=== PATIENT | female | born 1940 | race Caucasian/White ===

== ENCOUNTER 2018-05-25 16:44 | Inpatient (IN) | payer MEDICARE, MEDICAID ==
[~2018-05-25] VITALS: Ht 162.6 cm; Wt 45.8 kg
[2018-05-25 17:25] LABS: BASO # 0.1 x10^3/uL (0.0-0.2); BASO % 1 % (0-3); EOS # 0.1 x10^3/uL (0.0-0.7); EOS % 2 % (0-3); HEMATOCRIT 46.5 % (36.0-47.0); HEMOGLOBIN 15.9 g/dL (12.0-15.5); LYMPH % 17 % (24-48); MEAN CORPUSCULAR HEMOGLOBIN 32 pg (25-35); MEAN CORPUSCULAR HGB CONC 34 g/dL (31-37); MEAN CORPUSCULAR VOLUME 94 fL (79-100); MONO # 0.4 x10^3/uL (0.0-1.1); MONO % 6 % (0-9); NEUT # 4.4 x10^3uL (1.8-7.7); NEUT % 74 % (31-73); PLATELET COUNT 249 x10^3/uL (140-400); RED BLOOD COUNT 4.95 x10^6/uL (3.50-5.40); RED CELL DISTRIBUTION WIDTH 13.6 % (11.5-14.5); WHITE BLOOD COUNT 5.9 x10^3/uL (4.0-11.0)
[2018-05-25 17:29] LABS: CLARITY,URINE CLEAR; COLOR,URINE AMBER
[2018-05-25 17:30] LABS: AMORPHOUS SEDIMENT,UR PRESENT /HPF; BACTERIA,URINE FEW /HPF (0-FEW); BILIRUBIN,URINE NEG (NEG); GLUCOSE,URINE NEG (NEG); GRANULAR CASTS,URINE OCC /HPF; HYALINE CASTS, URINE OCC /HPF; NITRITE,URINE NEG (NEG); RBC,URINE RARE /HPF (0-2); SQUAMOUS EPITHELIAL CELL,UR OCC /LPF; UROBILINOGEN,URINE 0.2 mg/dL (0.2 mg/dL)
[2018-05-25 17:35] LABS: ALBUMIN 3.7 g/dL (3.4-5.0); ALBUMIN/GLOBULIN RATIO 1.1 (1.0-1.7); CALCIUM 9.9 mg/dL (8.5-10.1); CREATININE 0.7 mg/dL (0.6-1.0); GFR 80.7; MAGNESIUM 2.1 mg/dL (1.8-2.4); POTASSIUM 4.1 mmol/L (3.5-5.1); TOTAL BILIRUBIN 0.6 mg/dL (0.2-1.0); TOTAL PROTEIN 7.1 g/dL (6.4-8.2)
--- NOTE | 2018-05-25 17:45 | PHYS DOC ---
Past History Past Medical History: Anxiety, Arthritis, COPD, Depression, Hypertension Past Surgical History: Cholecystectomy, Other Alcohol Use: None Drug Use: None Adult General Chief Complaint Chief Complaint: PSYCH EVALUATION HPI HPI 78-year-old female presents for behavioral health admission and medical clearance. The patient is reported to have been aggressive and having paranoid delusions. She has been yelling at family members stating that they are stealing from her. She has been lashing out at other people as well. The patient does not complain of any pain or new medical complaints to me. She states that she is on 2 L of oxygen mostly at night due to COPD. She admits that she believes her minus been playing tricks on her. She denies fever or chills. Review of Systems Review of Systems Constitutional: Denies fever or chills [] Eyes: Denies change in visual acuity, redness, or eye pain [] HENT: Denies nasal congestion or sore throat [] Respiratory: Denies cough or change in shortness of breath [] Cardiovascular: No additional information not addressed in HPI [] GI: Denies abdominal pain, nausea, vomiting, bloody stools or diarrhea [] : Denies dysuria or hematuria [] Musculoskeletal: Denies back pain or joint pain [] Integument: Denies rash or skin lesions [] Neurologic: Denies headache, focal weakness or sensory changes [] Endocrine: Denies polyuria or polydipsia [] All other systems were reviewed and found to be within normal limits, except as documented in this note. Allergies Allergies Allergies Coded Allergies Type Severity Reaction Last Updated Verified No Known Drug Allergies 05/25/18 No Physical Exam Physical Exam Constitutional: Well developed, well nourished, no acute distress, non-toxic appearance. [] HENT: Normocephalic, atraumatic, bilateral external ears normal, oropharynx moist, no oral exudates, nose normal. [] Eyes: PERRLA, EOMI, conjunctiva normal, no discharge. [] Neck: Normal range of motion, no tenderness, supple, no stridor. [] Cardiovascular:Heart rate regular rhythm, no murmur [] Lungs & Thorax: Bilateral breath sounds decreased. On 2 L by nasal cannula.[] Abdomen: Bowel sounds normal, soft, no tenderness, no masses, no pulsatile masses. [] Skin: Warm, dry, no erythema, no rash. [] Back: No tenderness, no CVA tenderness. [] Extremities: No tenderness, no cyanosis, no clubbing, ROM intact, no edema. [] Neurologic: Alert and oriented X 3, normal motor function, normal sensory function, no focal deficits noted. [] Psychologic: Affect normal, judgement normal, mood normal. [] Current Patient Data Vital Signs Vital Signs Date Time Temp Pulse Resp B/P (MAP) Pulse Ox O2 Delivery O2 Flow Rate FiO2 05/25/18 16:50 98.7 94 24 98 Nasal Cannula 2.0 Lab Results Laboratory Tests Test 05/25/18 16:56 05/25/18 17:06 Urine Collection Type Unknown Urine Color Leonarda Urine Clarity Clear Urine pH 7.0 Urine Specific [place] 1.015 Urine Protein 30 mg/dl (NEG-TRACE) Urine Glucose (UA) Neg mg/dL (NEG) Urine Ketones (Stick) Trace mg/dL (NEG) Urine Blood Neg (NEG) Urine Nitrite Neg (NEG) Urine Bilirubin Neg (NEG) Urine Urobilinogen Dipstick 0.2 mg/dL (0.2 mg/dL) Urine Leukocyte Esterase Trace (NEG) Urine RBC Rare /HPF (0-2) Urine WBC 1-4 /HPF (0-4) Urine Squamous Epithelial Cells Occ /LPF Urine Amorphous Sediment Present /HPF Urine Bacteria Few /HPF (0-FEW) Urine Hyaline Casts Occ /HPF Urine Granular Casts Occ /HPF Urine Mucus Mod /LPF White Blood Count 5.9 x10^3/uL (4.0-11.0) Red Blood Count 4.95 x10^6/uL (3.50-5.40) Hemoglobin 15.9 g/dL (12.0-15.5) H Hematocrit 46.5 % (36.0-47.0) Mean Corpuscular Volume 94 fL (79-100) Mean Corpuscular Hemoglobin 32 pg (25-35) Mean Corpuscular Hemoglobin Concent 34 g/dL (31-37) Red Cell Distribution Width 13.6 % (11.5-14.5) Platelet Count 249 x10^3/uL (140-400) Neutrophils (%) (Auto) 74 % (31-73) H Lymphocytes (%) (Auto) 17 % (24-48) L Monocytes (%) (Auto) 6 % (0-9) Eosinophils (%) (Auto) 2 % (0-3) Basophils (%) (Auto) 1 % (0-3) Neutrophils # (Auto) 4.4 x10^3uL (1.8-7.7) Lymphocytes # (Auto) 1.0 x10^3/uL (1.0-4.8) Monocytes # (Auto) 0.4 x10^3/uL (0.0-1.1) Eosinophils # (Auto) 0.1 x10^3/uL (0.0-0.7) Basophils # (Auto) 0.1 x10^3/uL (0.0-0.2) Sodium Level 138 mmol/L (136-145) Potassium Level 4.1 mmol/L (3.5-5.1) Chloride Level 100 mmol/L (98-107) Carbon Dioxide Level 38 mmol/L (21-32) H Anion Gap 0 (6-14) L Blood Urea Nitrogen 21 mg/dL (7-20) H Creatinine 0.7 mg/dL (0.6-1.0) Estimated GFR (Cockcroft-Gault) 80.7 BUN/Creatinine Ratio 30 (6-20) H Glucose Level 87 mg/dL (70-99) Calcium Level 9.9 mg/dL (8.5-10.1) Magnesium Level 2.1 mg/dL (1.8-2.4) Total Bilirubin 0.6 mg/dL (0.2-1.0) Aspartate Amino Transferase (AST) 27 U/L (15-37) Alanine Aminotransferase (ALT) 31 U/L (14-59) Alkaline Phosphatase 89 U/L (46-116) Total Protein 7.1 g/dL (6.4-8.2) Albumin 3.7 g/dL (3.4-5.0) Albumin/Globulin Ratio 1.1 (1.0-1.7) EKG EKG Sinus rhythm, rate 93, normal axis, no ST elevations or depressions.[] Radiology/Procedures Radiology/Procedures [] Course & Med Decision Making Course & Med Decision Making Pertinent Labs and Imaging studies reviewed. (See chart for details) The patient's labs are unremarkable. Her urinalysis is negative for infection. Her EKG is unremarkable. The patient is medically stable for [facility] admission. [] Dragon Disclaimer Dragon Disclaimer This electronic medical record was generated, in whole or in part, using a voice recognition dictation system. Departure Departure: Referrals: NON,STAFF (PCP) LINDA FRANKEL DO May 25, 2018 17:45
--- NOTE | 2018-05-25 18:09 | EKG ---
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
[2018-05-25] MEDS ORDERED: MAG HYDROX/AL HYDROX/SIMETH 30 ML ORAL.SUSP PO PRN (19:45)
[2018-05-25] MEDS ORDERED: METHYL SALICYLATE/MENTHOL TOPICAL OINTMENT 29GM TUBE. TP PRN (19:45)
[2018-05-25] MEDS ORDERED: MAGNESIUM HYDROXIDE 2,400 MG/30 ML ORAL.SUSP. PO PRN (19:45)
[2018-05-25] MEDS ORDERED: ACETAMINOPHEN 325 MG TABLET PO PRN (19:45)
[2018-05-25] MEDS ORDERED: UMEC1DIS INH (20:41)
[2018-05-25] MEDS ORDERED: ALBU18HF (20:41)
[2018-05-25] MEDS ORDERED: DILT120C71 PO (20:41)
[2018-05-25] MEDS ORDERED: LATA2.5D3 (20:41)
[2018-05-25] MEDS ORDERED: NON FORMULARY ITEM (Umeclidinium Brm/Vilanterol Tr (Anoro Ellipta 62.5-25 Mcg Inh) 1 PUFF) INH SCH (21:00)
[2018-05-25] MEDS: ALBUTEROL SULFATE 2.5 MG/3 ML NEBU. NEB SCH (21:00)
[2018-05-25] MEDS ORDERED: ALBUTEROL SULFATE 2.5 MG/3 ML NEBU. NEB PRN (21:00)
[2018-05-25] MEDS ORDERED: ALBUTEROL SULFATE 8GM INHALER. INH SCH (21:00)
--- NOTE | 2018-05-25 21:11 | PDOC ---
Exam Note: Alejandro Note: Please also refer to the separate dictated note~for this date of service dictated separately.~Patient seen individually. Discussed the patient with Nursing staff reviewed the chart.~Reviewed interim history and current functioning. Reviewed vital signs,~Labs/ Radiology~and current medications noted below. Continue current treatment with the changes noted in the dictated addendum note Assessment: Vital Signs: Vital Signs Date Time Temp Pulse Resp B/P (MAP) Pulse Ox O2 Delivery O2 Flow Rate FiO2 05/25/18 18:40 93 20 169/90 (116) 100 Nasal Cannula 2.0 05/25/18 16:50 98.7 Labs: Laboratory Tests Test 05/25/18 16:56 05/25/18 17:06 Urine Collection Type Unknown Urine Color Leonarda Urine Clarity Clear Urine pH 7.0 Urine Specific [place] 1.015 Urine Protein 30 mg/dl (NEG-TRACE) Urine Glucose (UA) Neg mg/dL (NEG) Urine Ketones (Stick) Trace mg/dL (NEG) Urine Blood Neg (NEG) Urine Nitrite Neg (NEG) Urine Bilirubin Neg (NEG) Urine Urobilinogen Dipstick 0.2 mg/dL (0.2 mg/dL) Urine Leukocyte Esterase Trace (NEG) Urine RBC Rare /HPF (0-2) Urine WBC 1-4 /HPF (0-4) Urine Squamous Epithelial Cells Occ /LPF Urine Amorphous Sediment Present /HPF Urine Bacteria Few /HPF (0-FEW) Urine Hyaline Casts Occ /HPF Urine Granular Casts Occ /HPF Urine Mucus Mod /LPF White Blood Count 5.9 x10^3/uL (4.0-11.0) Red Blood Count 4.95 x10^6/uL (3.50-5.40) Hemoglobin 15.9 g/dL (12.0-15.5) H Hematocrit 46.5 % (36.0-47.0) Mean Corpuscular Volume 94 fL (79-100) Mean Corpuscular Hemoglobin 32 pg (25-35) Mean Corpuscular Hemoglobin Concent 34 g/dL (31-37) Red Cell Distribution Width 13.6 % (11.5-14.5) Platelet Count 249 x10^3/uL (140-400) Neutrophils (%) (Auto) 74 % (31-73) H Lymphocytes (%) (Auto) 17 % (24-48) L Monocytes (%) (Auto) 6 % (0-9) Eosinophils (%) (Auto) 2 % (0-3) Basophils (%) (Auto) 1 % (0-3) Neutrophils # (Auto) 4.4 x10^3uL (1.8-7.7) Lymphocytes # (Auto) 1.0 x10^3/uL (1.0-4.8) Monocytes # (Auto) 0.4 x10^3/uL (0.0-1.1) Eosinophils # (Auto) 0.1 x10^3/uL (0.0-0.7) Basophils # (Auto) 0.1 x10^3/uL (0.0-0.2) Sodium Level 138 mmol/L (136-145) Potassium Level 4.1 mmol/L (3.5-5.1) Chloride Level 100 mmol/L (98-107) Carbon Dioxide Level 38 mmol/L (21-32) H Anion Gap 0 (6-14) L Blood Urea Nitrogen 21 mg/dL (7-20) H Creatinine 0.7 mg/dL (0.6-1.0) Estimated GFR (Cockcroft-Gault) 80.7 BUN/Creatinine Ratio 30 (6-20) H Glucose Level 87 mg/dL (70-99) Calcium Level 9.9 mg/dL (8.5-10.1) Magnesium Level 2.1 mg/dL (1.8-2.4) Total Bilirubin 0.6 mg/dL (0.2-1.0) Aspartate Amino Transferase (AST) 27 U/L (15-37) Alanine Aminotransferase (ALT) 31 U/L (14-59) Alkaline Phosphatase 89 U/L (46-116) Total Protein 7.1 g/dL (6.4-8.2) Albumin 3.7 g/dL (3.4-5.0) Albumin/Globulin Ratio 1.1 (1.0-1.7) Current Medications: Meds: Current Medications Acetaminophen (Tylenol) 650 mg PRN Q6HRS PRN PO PAIN / TEMP; Start 05/25/18 at 19:45 Multi-Ingredient Ointment (Analgesic [place]) 1 beka PRN QID PRN TP MUSCLE PAIN; Start 05/25/18 at 19:45 Al Hydroxide/Mg Hydroxide (Mylanta Plus Xs) 15 ml PRN AFTMEALHC PRN PO DYSPEPSIA; Start 05/25/18 at 19:45 Magnesium Hydroxide (Milk Of Magnesia) 2,400 mg PRN QHS PRN PO CONSTIPATION; Start 05/25/18 at 19:45 Nicotine (Nicoderm Cq 21mg) 1 patch DAILY TD ; Start 05/26/18 at 09:00 Albuterol Sulfate (Ventolin Hfa Inhaler) 1 puff BID INH ; Start 05/25/18 at 21: 00; Stop 05/25/18 at 21:00; Status DC Diltiazem HCl (Cardizem 24hr Cd) 120 mg DAILY PO ; Start 05/26/18 at 09:00 Non-Formulary Medication (Umeclidinium Brm/Vilanterol Tr (Anoro Ellipta 62.5-25 Mcg Inh)) 1 puff BID INH ; Start 05/25/18 at 21:00; Stop 05/25/18 at 21:00; Status DC Albuterol Sulfate (Ventolin) 2.5 mg RTQID NEB ; Start 05/25/18 at 21:00 Budesonide (Pulmicort) 0.5 mg RTBID NEB ; Start 05/25/18 at 21:00 Albuterol Sulfate (Ventolin) 2.5 mg PRN Q6HRS PRN NEB SHORTNESS OF BREATH; Start 05/25/18 at 21:00 Active Scripts Active Reported Latanoprost 2.5 Ml Drops Cartia Xt (Diltiazem Hcl) 120 Mg Cap.er.24h 1 Cap PO DAILY Ventolin Hfa Inhaler (Albuterol Sulfate) 18 Gm Hfa.aer.ad Anoro Ellipta 62.5-25 Mcg Inh (Umeclidinium Brm/Vilanterol Tr) 1 Each Disk.w.dev 1 Puff INH BID I have reviewed the current psychotropics carefully including drug interactions. Risk benefit ratio favors no change other than as noted in my dictated progress note. LENCHO LYNN MD May 25, 2018 21:11
[2018-05-25] MEDS: BUDESONIDE 0.5 MG/2 ML NEBU NEB SCH (21:40)
[2018-05-25 23:29] VITALS: BP 170/73
[2018-05-26] MEDS ORDERED: CYAN100031 PO (00:27)
[2018-05-26] MEDS ORDERED: MAGN400T3 PO (00:27)
[2018-05-26] MEDS: ALBUTEROL SULFATE 2.5 MG/3 ML NEBU. NEB SCH ×4 (05:41→20:00)
[2018-05-26 06:03] VITALS: BP 154/78
[2018-05-26] MEDS: NICOTINE 21MG PATCH. TD SCH (08:36)
[2018-05-26] MEDS: BUDESONIDE 0.5 MG/2 ML NEBU NEB SCH ×2 (11:32→21:40)
[2018-05-26 12:58] LABS: THYROID STIM HORMONE (TSH) 2.502 uIU/mL (0.358-3.740)
--- NOTE | 2018-05-26 14:13 | RAD ---
EXAM: Chest, 2 views. HISTORY: Weight loss. COMPARISON: None. FINDINGS: Frontal and lateral views the chest are obtained. There is no infiltrate, pleural effusion or pneumothorax. There is hyperinflation due to emphysema. There are calcified granulomas. The heart is normal in size. There are circumscribed nodules overlying the lower lobes likely due to nipple shadows. IMPRESSION: 1. Emphysema and healed granulomatous disease. 2. Small circumscribed nodules overlying the lower lungs likely due to nipple shadows. Repeat examination following placement of nipple markers can be performed for confirmation. Electronically signed by: Niki Holbrook MD (05/26/2018 2:10 PM) [place] [id number]
[2018-05-26 15:45] VITALS: BP 126/59
--- NOTE | 2018-05-26 20:53 | PDOC ---
Exam Note: Alejandro Note: Please also refer to the separate dictated note~for this date of service dictated separately.~Patient seen individually. Discussed the patient with Nursing staff reviewed the chart.~Reviewed interim history and current functioning. Reviewed vital signs,~Labs/ Radiology~and current medications noted below. Continue current treatment with the changes noted in the dictated addendum note Assessment: Vital Signs: Vital Signs Date Time Temp Pulse Resp B/P (MAP) Pulse Ox O2 Delivery O2 Flow Rate FiO2 05/26/18 16:39 99 Nasal Cannula 2.0 05/26/18 15:45 98.0 92 20 126/59 (81) I&O Intake and Output 05/26/18 07:00 Intake Total 120 ml Balance 120 ml Intake Oral 120 ml Current Medications: Meds: Current Medications Acetaminophen (Tylenol) 650 mg PRN Q6HRS PRN PO PAIN / TEMP Last administered on 05/26/18at 13:54; Start 05/25/18 at 19:45 Multi-Ingredient Ointment (Analgesic [place]) 1 beka PRN QID PRN TP MUSCLE PAIN; Start 05/25/18 at 19:45 Al Hydroxide/Mg Hydroxide (Mylanta Plus Xs) 15 ml PRN AFTMEALHC PRN PO DYSPEPSIA; Start 05/25/18 at 19:45 Magnesium Hydroxide (Milk Of Magnesia) 2,400 mg PRN QHS PRN PO CONSTIPATION; Start 05/25/18 at 19:45 Nicotine (Nicoderm Cq 21mg) 1 patch DAILY TD Last administered on 05/26/18at 08: 36; Start 05/26/18 at 09:00 Albuterol Sulfate (Ventolin Hfa Inhaler) 1 puff BID INH ; Start 05/25/18 at 21: 00; Stop 05/25/18 at 21:00; Status DC Diltiazem HCl (Cardizem 24hr Cd) 120 mg DAILY PO Last administered on at 08:36; Start 05/26/18 at 09:00 Non-Formulary Medication (Umeclidinium Brm/Vilanterol Tr (Anoro Ellipta 62.5-25 Mcg Inh)) 1 puff BID INH ; Start 05/25/18 at 21:00; Stop 05/25/18 at 21:00; Status DC Albuterol Sulfate (Ventolin) 2.5 mg RTQID NEB Last administered on 05/26/18at 16 :39; Start 05/25/18 at 21:00 Budesonide (Pulmicort) 0.5 mg RTBID NEB Last administered on 05/26/18at 11:32; Start 05/25/18 at 21:00 Albuterol Sulfate (Ventolin) 2.5 mg PRN Q6HRS PRN NEB SHORTNESS OF BREATH Last administered on 05/26/18at 06:15; Start 05/25/18 at 21:00 Influenza Virus Vaccine (Afluria Trivalent 2315-5450 Syringe) 0.5 ml ONCE ONCE VAX IM Last administered on 05/26/18 15:24; Start 05/26/18 at 09:00; Stop 05/26/18 at 09:01; Status DC Active Scripts Active Reported Magnesium Oxide 400 Mg Tablet 250 Mg PO DAILY B-12 (Cyanocobalamin (Vitamin B-12)) 1,000 Mcg Tablet.er 1,000 Mcg PO DAILY Latanoprost 2.5 Ml Drops Cartia Xt (Diltiazem Hcl) 120 Mg Cap.er.24h 1 Cap PO DAILY Ventolin Hfa Inhaler (Albuterol Sulfate) 18 Gm Hfa.aer.ad Anoro Ellipta 62.5-25 Mcg Inh (Umeclidinium Brm/Vilanterol Tr) 1 Each Disk.w.dev 1 Puff INH BID I have reviewed the current psychotropics carefully including drug interactions. Risk benefit ratio favors no change other than as noted in my dictated progress note. Diagnosis: Problems: (1) Encounter for behavioral health screening (2) Anxiety disorder (3) Major depressive disorder, recurrent episode (4) Dementia, vascular, with delusions (5) Dementia, vascular, with depression (6) Dementia in Alzheimer's disease with delusions (7) Dementia in Alzheimer's disease with depression (8) Impulse control disorder LENCHO LYNN MD May 26, 2018 20:53
[2018-05-26 23:13] LABS: HEMOGLOBIN A1C 5.2 % (4.8-5.6); THYROXINE 9.3 ug/dL (4.5-12.0)
--- NOTE | 2018-05-27 00:31 | CONS ---
DATE OF CONSULTATION: 05/26/2018 REASON FOR CONSULTATION: Consult for medical management. HISTORY OF PRESENT ILLNESS: The patient is a 78-year-old female patient, who apparently lives at home and was evaluated at [facility] on account of altered mental status. She apparently is very agitated and thinks people are tapping her windows paranoid, angry, accusing family of stealing from her, increased confusion, and believes others are getting into her apartment, stealing from her, and verbally abusive. She also believes that without leaving clues in her apartment when they come in. She refused to finish second portion of dementia testing and was [facility] for [facility] psychiatric stabilization. PAST MEDICAL HISTORY: Her past medical history is significant for chronic obstructive pulmonary disease, pulmonary hypertension, rheumatoid arthritis, osteoarthritis, dyslipidemia, hypertension. She also is known to have generalized osteoarthritis, malignant neoplasm or urinary bladder. PAST SURGICAL HISTORY: Unremarkable. ALLERGIES: She is ALLERGIC TO LIPITOR, LISINOPRIL AND TRAMADOL WELL IV CONTRAST. FAMILY HISTORY: Unremarkable. SOCIAL HISTORY: She lives alone. She continues to be fairly independent, continues unfortunately to smoke, but does not drink alcohol or recreational drugs. 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 MEDICATIONS: She is currently on following medications: She is currently on Anoro Ellipta 1 puff twice a day, albuterol sulfate 1 inhaler every 4-6 hours, diltiazem extended release 120 mg once a day, latanoprost 1 drop to both eyes twice a day, magnesium oxide 400 mg once a day, cyanocobalamin 1000 mcg 1 tablet once a day. REVIEW OF SYSTEMS: The patient denied any blurring of vision, cataract, glaucoma. Denied any earache, tinnitus, or sensorineural deafness. Denied any nosebleeds, stuffy nose or nosebleed. Denied any sore throat, sore tongue, toothache, hoarseness of voice or difficulty swallowing. Denied any nausea, vomiting, diarrhea or constipation. Denied any hematemesis, melena or hematochezia. Denied any dysuria, frequency or hematuria. Denied any chest pain, shortness of breath, orthopnea, paroxysmal nocturnal dyspnea. Denied any cough, phlegm or hemoptysis. Denied any chills, rigors, or fever. Denied any dizziness, lightheadedness, or vertigo. She did complain of unintentional weight loss. She is now weighing about 92 pounds. PHYSICAL EXAMINATION: GENERAL: When I examined her, she was sitting comfortably in her chair, in no apparent respiratory distress, somewhat pale, but no jaundice or cyanosis. No lymphadenopathy, no thyromegaly. No jugular venous distension. No lower limb edema. VITAL SIGNS: Her heart rate was 91, blood pressure was 154/78, her temperature was 98.6, respiratory rate was 18, and oxygen saturation was 96% on 2 liters of oxygen. HEENT: Examination of the head, eyes, ears, nose and throat showed normocephalic, atraumatic. NECK: Supple. HEART: Showed normal first and second heart sounds with no gallop, rub or murmur. CHEST: Clear to auscultation. No crepitation or rhonchi. ABDOMEN: Scaphoid, soft, nontender. No guarding or rigidity. No organomegaly. Hernial orifices are intact and bowel sounds normal. NEUROLOGIC: She was awake, alert, responding appropriately. All her Cranial nerves are intact. EXTREMITIES: She moves extremities without difficulty. She ambulates without assistance or assistive devices. LABORATORY DATA: Her lab work showed a white cell count of 5900, hemoglobin 16, hematocrit 46, MCV 94, and platelet count 249,000. Her chemistry showed a serum sodium 138, potassium 4, chloride 100, bicarbonate was 38, BUN 21, creatinine 0.7, estimated GFR was 81 mL per minute. Her glucose was 87, calcium was 9.9, magnesium was 2.1. Total bilirubin, AST, ALT, alkaline phosphatase were normal. Total protein was 7.1, albumin 3.7. Urinalysis showed the urine was willis, clear with a pH of 7, specific gravity of 1.015. There is small amount of protein. The urine was negative for glucose, trace of ketones, negative for blood nitrite, and trace of leukocyte esterase. There were rare RBCs, very few WBCs, and very few bacteria. IMPRESSION: So, in summary, this is a 78-year-old female patient, who was admitted on account of increasing agitation, paranoid, angry, accusing family of stealing from her, and thinks people are tapping her windows and leaving clues in her apartment when they leave. She is verbally abusive and has refused to finish the dementia testing. She has multiple medical problems including chronic obstructive pulmonary disease, rheumatoid arthritis, hyperlipidemia, hypertension, and bladder cancer. She has an intentional weight loss. She apparently was treated for symptomatic urinary tract infection and her urinalysis is essentially unremarkable. PLAN: My plan is to inquire more about this bladder cancer and see whether she has any metastases, although at least chemically her kidney function is normal with a BUN of 21, creatinine 0.7. I will order at least chest x-ray and get more information about this bladder cancer to see if this is something that might be relevant to her presentation. Thank you, Dr. Jimenez, for allowing me to participate in the care of this patient. LESTER FELICIANO MD DR: DIXIE/jun JOB#: [id number] / [id number]
[2018-05-27] MEDS: ALBUTEROL SULFATE 2.5 MG/3 ML NEBU. NEB SCH ×4 (05:26→19:28)
[2018-05-27 05:50] VITALS: BP 145/63
[2018-05-27] MEDS: NICOTINE 21MG PATCH. TD SCH (09:29)
[2018-05-27] MEDS: BUDESONIDE 0.5 MG/2 ML NEBU NEB SCH ×2 (11:04→19:28)
--- NOTE | 2018-05-27 14:26 | HP ---
ADMIT DATE: 05/26/2018 PSYCHIATRIC ADMISSION HISTORY/EVALUATION This late entry, 05/26/2018, covers elements not covered in my initial note, 05/26/2018. I met with the patient individually in the evening. Discussed with nursing staff, reviewed the chart. Previously, I discussed with nursing staff on several occasions including prior to the patient's admission and also with Linda Carmen LCSW, flight coordinator. IDENTIFYING DATA: The patient is a 78-year-old female who was admitted by her daughter, Judit Kim, who is her power of energy attorney, referred by Dr. Posada, her primary care physician in [place], [place], on account of increasing psychotic symptoms and paranoia. The patient lives alone in her home/apartment. She believes people are entering her apartment and leaving clues. She is accusing family of stealing from her. She is increasingly forgetful, confused, having weight loss, poor appetite, worsening confusion. Since she lives on her own, all of these behaviors have been potentially dangerous and unsafe for her living. Outpatient treatment was attempted with psychological testing. The patient refused second half of the testing and is referred for inpatient psychiatric stabilization. CHIEF COMPLAINT: "I am doing alright. Maybe a little forgetful, but not much." HISTORY OF PRESENT ILLNESS: The patient reportedly has had increasing psychotic symptoms, short-term memory deficits, which she minimizes. She has had some sleep and appetite changes. No active suicidal or homicidal ideation. No clear symptoms of bipolar disorder. PAST PSYCHIATRIC HISTORY: As above. MEDICAL HISTORY: Positive for bladder cancer, history of COPD, hypertension, glaucoma, coronary artery disease, hyperlipidemia, osteoarthritis, pulmonary hypertension, rheumatoid arthritis. She is tobacco dependent. CODE STATUS: Full code. ALLERGIES: LIPITOR, LISINOPRIL, TRAMADOL, IV CONTRAST DYE. ACCU-CHEKS: None. DIET: Regular, ambulates ad roberth. CURRENT PSYCHOTROPICS: None. FAMILY HISTORY: Positive for Alzheimer's disease. SOCIAL HISTORY: The patient lives in her apartment. No alcohol or drug abuse, physical, sexual or elder abuse history is noted. Not known to be a perpetrator. The daughter had called Adult Protective Services on 05/11/2018 on account of the psychotic symptoms, dangerous behaviors, and at the behest of the Adult Protective Services finally got and contacted to arrange this hospitalization. 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 ASSETS: Supportive daughter. Despite some short-term memory deficits, reasonably cognitively intact. MENTAL STATUS EXAM: The patient was seen individually. She is oriented to herself and situation. She knew it was May, unaware of the date, knew that president was president Shanelle and when questioned who was the president before him, she stated "that colored man." Speech is coherent, abstraction fair, computation able to do one step on serial 7's, able to spell world forward, no error, backward 2 errors. No active suicidal or homicidal ideation. She minimizes paranoia, but on closed questioning, this is quite evident she is psychotic, minimizes being depressed. Mood is anxious, dysphoric. Intellect average. Insight limited. Judgment intact to standard questioning. LABORATORY DATA: Reviewed. IMPRESSION: Psychotic disorder, unspecified; major neurocognitive disorder, early, probably vascular with delusion; depression and anxiety disorder, unspecified; impulse control disorder, unspecified. Rest unchanged as above. PLAN: Admit to Geropsychiatry Unit at [facility]. I will see the patient daily individually from a psychiatric standpoint. Medical followup per Dr. Jordan/Dr. Barger. Observe the patient's baseline. Consider adding Seroquel as an atypical antipsychotic and using an antidepressant depending on her mood symptoms. She may need treatment on cholinesterase inhibitor, but probably majority of her memory deficits is vascular and these may have little effect. We will make further recommendations depending on baseline assessment. [place] LYNN MD DR: MELVIN/jun JOB#: [id number] / [id number]
[2018-05-27 16:19] VITALS: BP 184/76
[2018-05-27] MEDS: QUEtiapine 25 MG TABLET. PO SCH (20:14)
[2018-05-27] MEDS: traZODone 50 MG TABLET. PO PRN (20:14)
--- NOTE | 2018-05-27 20:19 | PDOC ---
Exam Note: Alejandro Note: Please also refer to the separate dictated note~for this date of service dictated separately.~Patient seen individually. Discussed the patient with Nursing staff reviewed the chart.~Reviewed interim history and current functioning. Reviewed vital signs,~Labs/ Radiology~and current medications noted below. Continue current treatment with the changes noted in the dictated addendum note Assessment: Vital Signs: Vital Signs Date Time Temp Pulse Resp B/P (MAP) Pulse Ox O2 Delivery O2 Flow Rate FiO2 05/27/18 19:31 93 Room Air 05/27/18 16:19 98.1 99 24 184/76 (112) 2.0 I&O Intake and Output 05/27/18 07:00 Intake Total 1080 ml Balance 1080 ml Intake Oral 1080 ml Labs: Laboratory Tests Test 05/27/18 07:04 Erythrocyte Sedimentation Rate 0 (0-25) C-Reactive Protein 7.6 mg/L (0-3.3) H Current Medications: Meds: Current Medications Acetaminophen (Tylenol) 650 mg PRN Q6HRS PRN PO PAIN / TEMP Last administered on 05/26/18at 13:54; Start 05/25/18 at 19:45 Multi-Ingredient Ointment (Analgesic [place]) 1 beka PRN QID PRN TP MUSCLE PAIN; Start 05/25/18 at 19:45 Al Hydroxide/Mg Hydroxide (Mylanta Plus Xs) 15 ml PRN AFTMEALHC PRN PO DYSPEPSIA; Start 05/25/18 at 19:45 Magnesium Hydroxide (Milk Of Magnesia) 2,400 mg PRN QHS PRN PO CONSTIPATION; Start 05/25/18 at 19:45 Nicotine (Nicoderm Cq 21mg) 1 patch DAILY TD Last administered on 05/27/18at 09: 29; Start 05/26/18 at 09:00 Albuterol Sulfate (Ventolin Hfa Inhaler) 1 puff BID INH ; Start 05/25/18 at 21: 00; Stop 05/25/18 at 21:00; Status DC Diltiazem HCl (Cardizem 24hr Cd) 120 mg DAILY PO Last administered on at 09:30; Start 05/26/18 at 09:00 Non-Formulary Medication (Umeclidinium Brm/Vilanterol Tr (Anoro Ellipta 62.5-25 Mcg Inh)) 1 puff BID INH ; Start 05/25/18 at 21:00; Stop 05/25/18 at 21:00; Status DC Albuterol Sulfate (Ventolin) 2.5 mg RTQID NEB Last administered on 05/27/18at 19 :28; Start 05/25/18 at 21:00 Budesonide (Pulmicort) 0.5 mg RTBID NEB Last administered on 05/27/18at 19:28; Start 05/25/18 at 21:00 Albuterol Sulfate (Ventolin) 2.5 mg PRN Q6HRS PRN NEB SHORTNESS OF BREATH Last administered on 05/26/18at 06:15; Start 05/25/18 at 21:00 Influenza Virus Vaccine (Afluria Trivalent [id number] Syringe) 0.5 ml ONCE ONCE VAX IM Last administered on 05/26/18at 15:24; Start 05/26/18 at 09:00; Stop 05/26/18 at 09:01; Status DC Quetiapine Fumarate (SEROquel) 25 mg QHS PO Last administered on 05/27/18at 20: 14; Start 05/27/18 at 21:00 Sertraline HCl (Zoloft) 25 mg DAILY PO ; Start 05/28/18 at 09:00 Trazodone HCl (Desyrel) 50 mg PRN QHS PRN PO prn insomnia Last administered on 05/27/18at 20:14; Start 05/27/18 at 21:00 Active Scripts Active Reported Magnesium Oxide 400 Mg Tablet 250 Mg PO DAILY B-12 (Cyanocobalamin (Vitamin B-12)) 1,000 Mcg Tablet.er 1,000 Mcg PO DAILY Latanoprost 2.5 Ml Drops Cartia Xt (Diltiazem Hcl) 120 Mg Cap.er.24h 1 Cap PO DAILY Ventolin Hfa Inhaler (Albuterol Sulfate) 18 Gm Hfa.aer.ad Anoro Ellipta 62.5-25 Mcg Inh (Umeclidinium Brm/Vilanterol Tr) 1 Each Disk.w.dev 1 Puff INH BID I have reviewed the current psychotropics carefully including drug interactions. Risk benefit ratio favors no change other than as noted in my dictated progress note. Diagnosis: Problems: (1) Encounter for behavioral health screening (2) Anxiety disorder (3) Major depressive disorder, recurrent episode (4) Dementia, vascular, with delusions (5) Dementia, vascular, with depression (6) Dementia in Alzheimer's disease with delusions (7) Dementia in Alzheimer's disease with depression (8) Impulse control disorder LENCHO LYNN MD May 27, 2018 20:19
[2018-05-28] MEDS: ALBUTEROL SULFATE 2.5 MG/3 ML NEBU. NEB SCH ×4 (05:39→19:55)
[2018-05-28 06:17] VITALS: BP 186/80
[2018-05-28] MEDS: NICOTINE 21MG PATCH. TD SCH (08:24)
[2018-05-28] MEDS: SERTRALINE 25 MG TABLET. PO SCH (08:24)
[2018-05-28] MEDS: BUDESONIDE 0.5 MG/2 ML NEBU NEB SCH ×2 (10:02→19:55)
[2018-05-28 15:49] VITALS: BP 134/58
[2018-05-28] MEDS: QUEtiapine 25 MG TABLET. PO SCH (20:17)
[2018-05-28] MEDS: traZODone 50 MG TABLET. PO PRN (20:17)
[2018-05-29] MEDS: ALBUTEROL SULFATE 2.5 MG/3 ML NEBU. NEB SCH ×4 (04:56→19:55)
[2018-05-29 06:32] VITALS: BP 166/83
[2018-05-29] MEDS: NICOTINE 21MG PATCH. TD SCH (08:41)
[2018-05-29] MEDS: SERTRALINE 25 MG TABLET. PO SCH (08:41)
[2018-05-29 15:33] VITALS: BP 169/78
[2018-05-29] MEDS: BUDESONIDE 0.5 MG/2 ML NEBU NEB SCH ×2 (16:18→19:55)
--- NOTE | 2018-05-29 20:25 | PDOC ---
Exam Note: Alejandro Note: Late entry for date of service May. Please also refer to the separate dictated note~for this date of service dictated separately.~Patient seen individually. Discussed the patient with Nursing staff reviewed the chart.~ Reviewed interim history and current functioning. Reviewed vital signs,~Labs/ Radiology~and current medications noted below. Continue current treatment with the changes noted in the dictated addendum note Assessment: Vital Signs: VS - Last 72 Hours, by Label Date Time Temp Pulse Resp B/P (MAP) Pulse Ox O2 Delivery O2 Flow Rate FiO2 05/29/18 16:29 93 Nasal Cannula 2.0 05/29/18 16:20 93 Nasal Cannula 2.0 05/29/18 15:33 98.0 82 22 169/78 (108) 99 05/29/18 08:40 92 166/83 05/29/18 06:32 97.5 92 18 166/83 (110) 94 Nasal Cannula 2.0 05/28/18 16:46 94 Nasal Cannula 2.0 05/28/18 15:49 98.3 86 20 134/58 (83) 90 05/28/18 10:04 3 Nasal Cannula 2.0 05/28/18 08:23 90 186/90 05/28/18 06:17 97.8 90 22 186/80 (115) 98 Nasal Cannula 2.0 05/28/18 05:40 92 Nasal Cannula 2.0 05/27/18 19:31 93 Room Air 05/27/18 16:19 98.1 99 24 184/76 (112) 92 Room Air 2.0 05/27/18 11:05 99 Nasal Cannula 2.0 05/27/18 11:04 99 Nasal Cannula 2.0 05/27/18 09:30 81 145/63 05/27/18 05:50 98.1 81 22 145/63 (90) 99 Nasal Cannula 2.0 05/26/18 20:40 99 Nasal Cannula 2.0 Vital Signs Date Time Temp Pulse Resp B/P (MAP) Pulse Ox O2 Delivery O2 Flow Rate FiO2 05/29/18 16:29 93 Nasal Cannula 2.0 05/29/18 15:33 98.0 82 22 169/78 (108) I&O Intake and Output 05/29/18 06:59 Intake Total 358 ml Balance 358 ml Intake Oral 358 ml Current Medications: Meds: Current Medications Acetaminophen (Tylenol) 650 mg PRN Q6HRS PRN PO PAIN / TEMP Last administered on 05/26/18at 13:54; Start 05/25/18 at 19:45 Multi-Ingredient Ointment (Analgesic [place]) 1 beka PRN QID PRN TP MUSCLE PAIN; Start 05/25/18 at 19:45 Al Hydroxide/Mg Hydroxide (Mylanta Plus Xs) 15 ml PRN AFTMEALHC PRN PO DYSPEPSIA; Start 05/25/18 at 19:45 Magnesium Hydroxide (Milk Of Magnesia) 2,400 mg PRN QHS PRN PO CONSTIPATION; Start 05/25/18 at 19:45 Nicotine (Nicoderm Cq 21mg) 1 patch DAILY TD Last administered on 05/29/18at 08: 41; Start 05/26/18 at 09:00 Albuterol Sulfate (Ventolin Hfa Inhaler) 1 puff BID INH ; Start 05/25/18 at 21: 00; Stop 05/25/18 at 21:00; Status DC Diltiazem HCl (Cardizem 24hr Cd) 120 mg DAILY PO Last administered on at 08:40; Start 05/26/18 at 09:00 Non-Formulary Medication (Umeclidinium Brm/Vilanterol Tr (Anoro Ellipta 62.5-25 Mcg Inh)) 1 puff BID INH ; Start 05/25/18 at 21:00; Stop 05/25/18 at 21:00; Status DC Albuterol Sulfate (Ventolin) 2.5 mg RTQID NEB Last administered on 05/29/18at 16 :18; Start 05/25/18 at 21:00 Budesonide (Pulmicort) 0.5 mg RTBID NEB Last administered on 05/29/18at 16:18; Start 05/25/18 at 21:00 Albuterol Sulfate (Ventolin) 2.5 mg PRN Q6HRS PRN NEB SHORTNESS OF BREATH Last administered on 05/26/18at 06:15; Start 05/25/18 at 21:00 Influenza Virus Vaccine (Afluria Trivalent [id number] Syringe) 0.5 ml ONCE ONCE VAX IM Last administered on 05/26/18at 15:24; Start 05/26/18 at 09:00; Stop 05/26/18 at 09:01; Status DC Quetiapine Fumarate (SEROquel) 25 mg QHS PO Last administered on 05/28/18 20: 17; Start 05/27/18 at 21:00 Sertraline HCl (Zoloft) 25 mg DAILY PO Last administered on 05/29/18at 08:41; Start 05/28/18 at 09:00 Trazodone HCl (Desyrel) 50 mg PRN QHS PRN PO prn insomnia Last administered on 05/28/18at 20:17; Start 05/27/18 at 21:00 Active Scripts Active Reported Magnesium Oxide 400 Mg Tablet 250 Mg PO DAILY B-12 (Cyanocobalamin (Vitamin B-12)) 1,000 Mcg Tablet.er 1,000 Mcg PO DAILY Latanoprost 2.5 Ml Drops Cartia Xt (Diltiazem Hcl) 120 Mg Cap.er.24h 1 Cap PO DAILY Ventolin Hfa Inhaler (Albuterol Sulfate) 18 Gm Hfa.aer.ad Anoro Ellipta 62.5-25 Mcg Inh (Umeclidinium Brm/Vilanterol Tr) 1 Each Disk.w.dev 1 Puff INH BID I have reviewed the current psychotropics carefully including drug interactions. Risk benefit ratio favors no change other than as noted in my dictated progress note. Diagnosis: Problems: (1) Encounter for behavioral health screening (2) Anxiety disorder (3) Major depressive disorder, recurrent episode (4) Dementia, vascular, with delusions (5) Dementia, vascular, with depression (6) Dementia in Alzheimer's disease with delusions (7) Dementia in Alzheimer's disease with depression (8) Impulse control disorder LENCHO LYNN MD May 29, 2018 20:25
[2018-05-29] MEDS: traZODone 50 MG TABLET. PO PRN (20:26)
[2018-05-29] MEDS: QUEtiapine 25 MG TABLET. PO SCH (20:26)
--- NOTE | 2018-05-29 20:26 | PDOC ---
Exam Note: Alejandro Note: Please also refer to the separate dictated note~for this date of service dictated separately.~Patient seen individually. Discussed the patient with Nursing staff reviewed the chart.~Reviewed interim history and current functioning. Reviewed vital signs,~Labs/ Radiology~and current medications noted below. Continue current treatment with the changes noted in the dictated addendum note Assessment: Vital Signs: Vital Signs Date Time Temp Pulse Resp B/P (MAP) Pulse Ox O2 Delivery O2 Flow Rate FiO2 05/29/18 16:29 93 Nasal Cannula 2.0 05/29/18 15:33 98.0 82 22 169/78 (108) I&O Intake and Output 05/29/18 06:59 Intake Total 358 ml Balance 358 ml Intake Oral 358 ml Current Medications: Meds: Current Medications Acetaminophen (Tylenol) 650 mg PRN Q6HRS PRN PO PAIN / TEMP Last administered on 05/26/18at 13:54; Start 05/25/18 at 19:45 Multi-Ingredient Ointment (Analgesic [place]) 1 beka PRN QID PRN TP MUSCLE PAIN; Start 05/25/18 at 19:45 Al Hydroxide/Mg Hydroxide (Mylanta Plus Xs) 15 ml PRN AFTMEALHC PRN PO DYSPEPSIA; Start 05/25/18 at 19:45 Magnesium Hydroxide (Milk Of Magnesia) 2,400 mg PRN QHS PRN PO CONSTIPATION; Start 05/25/18 at 19:45 Nicotine (Nicoderm Cq 21mg) 1 patch DAILY TD Last administered on 05/29/18at 08: 41; Start 05/26/18 at 09:00 Albuterol Sulfate (Ventolin Hfa Inhaler) 1 puff BID INH ; Start 05/25/18 at 21: 00; Stop 05/25/18 at 21:00; Status DC Diltiazem HCl (Cardizem 24hr Cd) 120 mg DAILY PO Last administered on at 08:40; Start 05/26/18 at 09:00 Non-Formulary Medication (Umeclidinium Brm/Vilanterol Tr (Anoro Ellipta 62.5-25 Mcg Inh)) 1 puff BID INH ; Start 05/25/18 at 21:00; Stop 05/25/18 at 21:00; Status DC Albuterol Sulfate (Ventolin) 2.5 mg RTQID NEB Last administered on 05/29/18 16 :18; Start 05/25/18 at 21:00 Budesonide (Pulmicort) 0.5 mg RTBID NEB Last administered on 05/29/18 16:18; Start 05/25/18 at 21:00 Albuterol Sulfate (Ventolin) 2.5 mg PRN Q6HRS PRN NEB SHORTNESS OF BREATH Last administered on 05/26/18 06:15; Start 05/25/18 at 21:00 Influenza Virus Vaccine (Afluria Trivalent [id number] Syringe) 0.5 ml ONCE ONCE VAX IM Last administered on 05/26/18at 15:24; Start 05/26/18 at 09:00; Stop 05/26/18 at 09:01; Status DC Quetiapine Fumarate (SEROquel) 25 mg QHS PO Last administered on 05/28/18 20: 17; Start 05/27/18 at 21:00 Sertraline HCl (Zoloft) 25 mg DAILY PO Last administered on 05/29/18at 08:41; Start 05/28/18 at 09:00 Trazodone HCl (Desyrel) 50 mg PRN QHS PRN PO prn insomnia Last administered on 05/28/18 20:17; Start 05/27/18 at 21:00 Active Scripts Active Reported Magnesium Oxide 400 Mg Tablet 250 Mg PO DAILY B-12 (Cyanocobalamin (Vitamin B-12)) 1,000 Mcg Tablet.er 1,000 Mcg PO DAILY Latanoprost 2.5 Ml Drops Cartia Xt (Diltiazem Hcl) 120 Mg Cap.er.24h 1 Cap PO DAILY Ventolin Hfa Inhaler (Albuterol Sulfate) 18 Gm Hfa.aer.ad Anoro Ellipta 62.5-25 Mcg Inh (Umeclidinium Brm/Vilanterol Tr) 1 Each Disk.w.dev 1 Puff INH BID I have reviewed the current psychotropics carefully including drug interactions. Risk benefit ratio favors no change other than as noted in my dictated progress note. Diagnosis: Problems: (1) Encounter for behavioral health screening (2) Anxiety disorder (3) Major depressive disorder, recurrent episode (4) Dementia, vascular, with delusions (5) Dementia, vascular, with depression (6) Dementia in Alzheimer's disease with delusions (7) Dementia in Alzheimer's disease with depression (8) Impulse control disorder LENCHO LYNN MD May 29, 2018 20:26
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
--- NOTE | 2018-05-30 00:41 | PN ---
DATE: 05/28/2018 This is a late entry for 05/28/2018 and covers elements not covered in my initial note. SUBJECTIVE: I met with the patient in the evening. The patient slept 6 hours previous evening, remains very anxious, especially about oxygen, resistive with medications, obsessive about her closet. She does have short-term memory deficits, but I sat with her at some length in her room. REVIEW OF SYSTEMS: Shortness of breath, impaired ambulation at times. No CV, GI, , eye system symptoms on review. MENTAL STATUS EXAM: Oriented to herself and situation. Speech coherent, rapid at times. Abstraction fair, computation impaired, language function intact, attention span short. Mood and affect labile, anxious. LABORATORY DATA: Reviewed. IMPRESSION: Unchanged from initial note. PLAN: No change from initial note, trazodone, Seroquel, Zoloft were added and we will adjust gradually. MAN Ridge LYNN MD DR: MELVIN/jun JOB#: [id number] / [id number]
--- NOTE | 2018-05-30 00:59 | PN ---
DATE: 05/29/2018 This note covers elements not covered in my initial note. SUBJECTIVE: I met with the patient in her roommate in the evening. Per nursing report, she appeared helpless, hopeless, withdrawn to her room. REVIEW OF SYSTEMS: She remains anxious, obsessive about her oxygen, trying to turn it up. No CV, , eye, ENT system symptoms on review. MENTAL STATUS EXAM: Oriented to herself, situations. The patient did not appear to recognize me, was asking me who I was. I have seen her every day since she has been hospitalized and she does have cognitive deficits to explain that. Speech coherent, rapid at times. Abstraction fair, computation impaired, language function intact. Mood and affect remain somewhat anxious, labile. LABORATORY DATA: Reviewed. IMPRESSION: Major depressive disorder with psychotic features; anxiety disorder, unspecified. PLAN: No change from initial note. MAN Ridge LYNN MD DR: MELVIN/jun JOB#: [id number] / [id number]
[2018-05-30] MEDS: ALBUTEROL SULFATE 2.5 MG/3 ML NEBU. NEB SCH ×4 (05:04→20:21)
[2018-05-30 06:01] VITALS: BP 161/77
[2018-05-30] MEDS: NICOTINE 21MG PATCH. TD SCH (08:32)
[2018-05-30] MEDS: SERTRALINE 25 MG TABLET. PO SCH (08:32)
[2018-05-30 09:21] LABS: BASO % 1 % (0-3); EOS # 0.1 x10^3/uL (0.0-0.7); EOS % 2 % (0-3); HEMATOCRIT 44.9 % (36.0-47.0); LYMPH # 0.6 x10^3/uL (1.0-4.8); LYMPH % 10 % (24-48); MEAN CORPUSCULAR HEMOGLOBIN 32 pg (25-35); MEAN CORPUSCULAR HGB CONC 33 g/dL (31-37); MEAN CORPUSCULAR VOLUME 95 fL (79-100); MONO # 0.3 x10^3/uL (0.0-1.1); MONO % 5 % (0-9); NEUT % 83 % (31-73); PLATELET COUNT 262 x10^3/uL (140-400); RED BLOOD COUNT 4.74 x10^6/uL (3.50-5.40); RED CELL DISTRIBUTION WIDTH 13.7 % (11.5-14.5)
[2018-05-30 09:35] LABS: ALBUMIN 3.6 g/dL (3.4-5.0); ALBUMIN/GLOBULIN RATIO 1.1 (1.0-1.7); CALCIUM 9.9 mg/dL (8.5-10.1); CREATININE 0.7 mg/dL (0.6-1.0); GFR 80.7; POTASSIUM 3.6 mmol/L (3.5-5.1); TOTAL BILIRUBIN 0.8 mg/dL (0.2-1.0); TOTAL PROTEIN 6.9 g/dL (6.4-8.2)
[2018-05-30] MEDS: BUDESONIDE 0.5 MG/2 ML NEBU NEB SCH ×2 (10:46→20:21)
[2018-05-30 15:53] VITALS: BP 146/66
[2018-05-30] MEDS: MIRTAZAPINE 7.5 MG TABLET. PO SCH ×2 (20:42→20:56)
[2018-05-30] MEDS: QUEtiapine 25 MG TABLET. PO SCH ×2 (20:42→20:56)
--- NOTE | 2018-05-30 20:54 | PDOC ---
Exam Note: Alejandro Note: Please also refer to the separate dictated note~for this date of service dictated separately.~Patient seen individually. Discussed the patient with Nursing staff reviewed the chart.~Reviewed interim history and current functioning. Reviewed vital signs,~Labs/ Radiology~and current medications noted below. Continue current treatment with the changes noted in the dictated addendum note Assessment: Vital Signs: Vital Signs Date Time Temp Pulse Resp B/P (MAP) Pulse Ox O2 Delivery O2 Flow Rate FiO2 05/30/18 16:27 97 Nasal Cannula 2.0 05/30/18 15:53 98.6 77 20 146/66 (92) I&O Intake and Output 05/30/18 06:59 Intake Total 300 ml Balance 300 ml Intake Oral 300 ml Labs: Laboratory Tests Test 05/30/18 09:14 White Blood Count 6.0 x10^3/uL (4.0-11.0) Red Blood Count 4.74 x10^6/uL (3.50-5.40) Hemoglobin 15.0 g/dL (12.0-15.5) Hematocrit 44.9 % (36.0-47.0) Mean Corpuscular Volume 95 fL (79-100) Mean Corpuscular Hemoglobin 32 pg (25-35) Mean Corpuscular Hemoglobin Concent 33 g/dL (31-37) Red Cell Distribution Width 13.7 % (11.5-14.5) Platelet Count 262 x10^3/uL (140-400) Neutrophils (%) (Auto) 83 % (31-73) H Lymphocytes (%) (Auto) 10 % (24-48) L Monocytes (%) (Auto) 5 % (0-9) Eosinophils (%) (Auto) 2 % (0-3) Basophils (%) (Auto) 1 % (0-3) Neutrophils # (Auto) 5.0 x10^3uL (1.8-7.7) Lymphocytes # (Auto) 0.6 x10^3/uL (1.0-4.8) L Monocytes # (Auto) 0.3 x10^3/uL (0.0-1.1) Eosinophils # (Auto) 0.1 x10^3/uL (0.0-0.7) Basophils # (Auto) 0.0 x10^3/uL (0.0-0.2) Sodium Level 142 mmol/L (136-145) Potassium Level 3.6 mmol/L (3.5-5.1) Chloride Level 102 mmol/L (98-107) Carbon Dioxide Level 40 mmol/L (21-32) H Anion Gap 0 (6-14) L Blood Urea Nitrogen 22 mg/dL (7-20) H Creatinine 0.7 mg/dL (0.6-1.0) Estimated GFR (Cockcroft-Gault) 80.7 BUN/Creatinine Ratio 31 (6-20) H Glucose Level 94 mg/dL (70-99) Calcium Level 9.9 mg/dL (8.5-10.1) Total Bilirubin 0.8 mg/dL (0.2-1.0) Aspartate Amino Transferase (AST) 40 U/L (15-37) H Alanine Aminotransferase (ALT) 56 U/L (14-59) Alkaline Phosphatase 79 U/L (46-116) Total Protein 6.9 g/dL (6.4-8.2) Albumin 3.6 g/dL (3.4-5.0) Albumin/Globulin Ratio 1.1 (1.0-1.7) Current Medications: Meds: Current Medications Acetaminophen (Tylenol) 650 mg PRN Q6HRS PRN PO PAIN / TEMP Last administered on 05/26/18at 13:54; Start 05/25/18 at 19:45 Multi-Ingredient Ointment (Analgesic [place]) 1 beka PRN QID PRN TP MUSCLE PAIN; Start 05/25/18 at 19:45 Al Hydroxide/Mg Hydroxide (Mylanta Plus Xs) 15 ml PRN AFTMEALHC PRN PO DYSPEPSIA; Start 05/25/18 at 19:45 Magnesium Hydroxide (Milk Of Magnesia) 2,400 mg PRN QHS PRN PO CONSTIPATION; Start 05/25/18 at 19:45 Nicotine (Nicoderm Cq 21mg) 1 patch DAILY TD Last administered on 05/30/18at 08: 32; Start 05/26/18 at 09:00 Albuterol Sulfate (Ventolin Hfa Inhaler) 1 puff BID INH ; Start 05/25/18 at 21: 00; Stop 05/25/18 at 21:00; Status DC Diltiazem HCl (Cardizem 24hr Cd) 120 mg DAILY PO Last administered on 08:32; Start 05/26/18 at 09:00 Non-Formulary Medication (Umeclidinium Brm/Vilanterol Tr (Anoro Ellipta 62.5-25 Mcg Inh)) 1 puff BID INH ; Start 05/25/18 at 21:00; Stop 05/25/18 at 21:00; Status DC Albuterol Sulfate (Ventolin) 2.5 mg RTQID NEB Last administered on 05/30/18 16 :27; Start 05/25/18 at 21:00 Budesonide (Pulmicort) 0.5 mg RTBID NEB Last administered on 05/30/18 10:46; Start 05/25/18 at 21:00 Albuterol Sulfate (Ventolin) 2.5 mg PRN Q6HRS PRN NEB SHORTNESS OF BREATH Last administered on 05/26/18 06:15; Start 05/25/18 at 21:00 Influenza Virus Vaccine (Afluria Trivalent [id number] Syringe) 0.5 ml ONCE ONCE VAX IM Last administered on 05/26/18 15:24; Start 05/26/18 at 09:00; Stop 05/26/18 at 09:01; Status DC Quetiapine Fumarate (SEROquel) 25 mg QHS PO Last administered on 05/30/18 20: 42; Start 05/27/18 at 21:00 Sertraline HCl (Zoloft) 25 mg DAILY PO Last administered on 05/30/18 08:32; Start 05/28/18 at 09:00; Stop 05/30/18 at 16:11; Status DC Trazodone HCl (Desyrel) 50 mg PRN QHS PRN PO prn insomnia Last administered on 05/29/18 20:26; Start 05/27/18 at 21:00 Sertraline HCl (Zoloft) 50 mg DAILY PO ; Start 05/31/18 at 09:00 Mirtazapine (Remeron) 7.5 mg QHS PO Last administered on 05/30/18 20:42; Start 05/30/18 at 21:00 Active Scripts Active Reported Magnesium Oxide 400 Mg Tablet 250 Mg PO DAILY B-12 (Cyanocobalamin (Vitamin B-12)) 1,000 Mcg Tablet.er 1,000 Mcg PO DAILY Latanoprost 2.5 Ml Drops Cartia Xt (Diltiazem Hcl) 120 Mg Cap.er.24h 1 Cap PO DAILY Ventolin Hfa Inhaler (Albuterol Sulfate) 18 Gm Hfa.aer.ad Anoro Ellipta 62.5-25 Mcg Inh (Umeclidinium Brm/Vilanterol Tr) 1 Each Disk.w.dev 1 Puff INH BID I have reviewed the current psychotropics carefully including drug interactions. Risk benefit ratio favors no change other than as noted in my dictated progress note. Diagnosis: Problems: (1) Encounter for behavioral health screening (2) Anxiety disorder (3) Major depressive disorder, recurrent episode (4) Dementia, vascular, with delusions (5) Dementia, vascular, with depression (6) Dementia in Alzheimer's disease with delusions (7) Dementia in Alzheimer's disease with depression (8) Impulse control disorder LENCHO LYNN MD May 30, 2018 20:54
[2018-05-31] MEDS: ALBUTEROL SULFATE 2.5 MG/3 ML NEBU. NEB SCH ×4 (05:12→20:26)
[2018-05-31 06:12] VITALS: BP 179/84
[2018-05-31] MEDS: NICOTINE 21MG PATCH. TD SCH (08:14)
[2018-05-31] MEDS: SERTRALINE 50 MG TABLET. PO SCH (08:20)
[2018-05-31] MEDS: BUDESONIDE 0.5 MG/2 ML NEBU NEB SCH ×2 (10:53→20:26)
[2018-05-31 16:43] VITALS: BP 152/71
--- NOTE | 2018-05-31 21:07 | PDOC ---
Exam Note: Alejandro Note: Please also refer to the separate dictated note~for this date of service dictated separately.~Patient seen individually. Discussed the patient with Nursing staff reviewed the chart.~Reviewed interim history and current functioning. Reviewed vital signs,~Labs/ Radiology~and current medications noted below. Continue current treatment with the changes noted in the dictated addendum note Assessment: Vital Signs: Vital Signs Date Time Temp Pulse Resp B/P (MAP) Pulse Ox O2 Delivery O2 Flow Rate FiO2 05/31/18 20:20 98 Nasal Cannula 2.0 05/31/18 16:43 97.0 85 20 152/71 (98) I&O Intake and Output 05/31/18 07:00 Intake Total 680 ml Balance 680 ml Intake Oral 680 ml # Voids 1 Current Medications: Meds: Current Medications Acetaminophen (Tylenol) 650 mg PRN Q6HRS PRN PO PAIN / TEMP Last administered on 05/26/18at 13:54; Start 05/25/18 at 19:45 Multi-Ingredient Ointment (Analgesic [place]) 1 beka PRN QID PRN TP MUSCLE PAIN; Start 05/25/18 at 19:45 Al Hydroxide/Mg Hydroxide (Mylanta Plus Xs) 15 ml PRN AFTMEALHC PRN PO DYSPEPSIA; Start 05/25/18 at 19:45 Magnesium Hydroxide (Milk Of Magnesia) 2,400 mg PRN QHS PRN PO CONSTIPATION; Start 05/25/18 at 19:45 Nicotine (Nicoderm Cq 21mg) 1 patch DAILY TD Last administered on 05/31/18at 08: 14; Start 05/26/18 at 09:00 Albuterol Sulfate (Ventolin Hfa Inhaler) 1 puff BID INH ; Start 05/25/18 at 21: 00; Stop 05/25/18 at 21:00; Status DC Diltiazem HCl (Cardizem 24hr Cd) 120 mg DAILY PO Last administered on at 08:13; Start 05/26/18 at 09:00 Non-Formulary Medication (Umeclidinium Brm/Vilanterol Tr (Anoro Ellipta 62.5-25 Mcg Inh)) 1 puff BID INH ; Start 05/25/18 at 21:00; Stop 05/25/18 at 21:00; Status DC Albuterol Sulfate (Ventolin) 2.5 mg RTQID NEB Last administered on 05/31/18 20 :26; Start 05/25/18 at 21:00 Budesonide (Pulmicort) 0.5 mg RTBID NEB Last administered on 05/31/18 20:26; Start 05/25/18 at 21:00 Albuterol Sulfate (Ventolin) 2.5 mg PRN Q6HRS PRN NEB SHORTNESS OF BREATH Last administered on 05/26/18at 06:15; Start 05/25/18 at 21:00 Influenza Virus Vaccine (Afluria Trivalent [id number] Syringe) 0.5 ml ONCE ONCE VAX IM Last administered on 05/26/18 15:24; Start 05/26/18 at 09:00; Stop 05/26/18 at 09:01; Status DC Quetiapine Fumarate (SEROquel) 25 mg QHS PO Last administered on 05/29/18 20: 26; Start 05/27/18 at 21:00 Sertraline HCl (Zoloft) 25 mg DAILY PO Last administered on 05/30/18at 08:32; Start 05/28/18 at 09:00; Stop 05/30/18 at 16:11; Status DC Trazodone HCl (Desyrel) 50 mg PRN QHS PRN PO prn insomnia Last administered on 05/29/18 20:26; Start 05/27/18 at 21:00 Sertraline HCl (Zoloft) 50 mg DAILY PO Last administered on 05/31/18at 08:20; Start 05/31/18 at 09:00 Mirtazapine (Remeron) 7.5 mg QHS PO ; Start 05/30/18 at 21:00 Active Scripts Active Reported Magnesium Oxide 400 Mg Tablet 250 Mg PO DAILY B-12 (Cyanocobalamin (Vitamin B-12)) 1,000 Mcg Tablet.er 1,000 Mcg PO DAILY Latanoprost 2.5 Ml Drops Cartia Xt (Diltiazem Hcl) 120 Mg Cap.er.24h 1 Cap PO DAILY Ventolin Hfa Inhaler (Albuterol Sulfate) 18 Gm Hfa.aer.ad Anoro Ellipta 62.5-25 Mcg Inh (Umeclidinium Brm/Vilanterol Tr) 1 Each Disk.w.dev 1 Puff INH BID I have reviewed the current psychotropics carefully including drug interactions. Risk benefit ratio favors no change other than as noted in my dictated progress note. Diagnosis: Problems: (1) Encounter for behavioral health screening (2) Anxiety disorder (3) Major depressive disorder, recurrent episode (4) Dementia, vascular, with delusions (5) Dementia, vascular, with depression (6) Dementia in Alzheimer's disease with delusions (7) Dementia in Alzheimer's disease with depression (8) Impulse control disorder LENCHO LYNN MD May 31, 2018 21:07
[2018-05-31] MEDS: QUEtiapine 25 MG TABLET. PO SCH (21:15)
[2018-05-31] MEDS: MIRTAZAPINE 7.5 MG TABLET. PO SCH (21:15)
--- NOTE | 2018-05-31 23:22 | PN ---
DATE: 05/30/2018 This is a late entry for 05/30/2018 covers elements not covered in my initial note. SUBJECTIVE: I met with the patient at some length in her room. The patient slept 2 hours previous evening. She has been withdrawn, isolative. She frequently turns up her oxygen, remains anxious. REVIEW OF SYSTEMS: Shortness of breath on O2 supplements 2 liters. No CV, , GI, eye, ENT system symptoms on review. MENTAL STATUS EXAM: Oriented to herself and situation. Speech moderate latency, coherent. Abstraction fair. Computation able to do one step in serial 7's. Insight limited, judgment marginal. No suicidal or homicidal ideation. LABORATORY DATA: Reviewed. IMPRESSION: Major depressive disorder with psychotic features; psychotic disorder, unspecified; anxiety disorder, unspecified; major neurocognitive disorder, Alzheimer, vascular with delusion, depression. PLAN: Increase Zoloft from 25 mg a day to 50 mg a day. Continue Seroquel 25 at bedtime, trazodone p.r.n. MAN Ridge LYNN MD DR: MELVIN/jun JOB#: [id number] / [id number]
[2018-06-01] MEDS: ALBUTEROL SULFATE 2.5 MG/3 ML NEBU. NEB SCH ×4 (05:16→20:31)
[2018-06-01 06:08] VITALS: BP 172/74
[2018-06-01] MEDS: NICOTINE 21MG PATCH. TD SCH (09:32)
[2018-06-01] MEDS: SERTRALINE 50 MG TABLET. PO SCH (09:32)
[2018-06-01] MEDS: BUDESONIDE 0.5 MG/2 ML NEBU NEB SCH ×2 (09:53→20:31)
[2018-06-01 16:15] VITALS: BP 136/65
[2018-06-01] MEDS: QUEtiapine 25 MG TABLET. PO SCH ×2 (20:24→21:00)
[2018-06-01] MEDS: MIRTAZAPINE 7.5 MG TABLET. PO SCH ×2 (20:24→21:00)
--- NOTE | 2018-06-01 20:58 | PDOC ---
Exam Note: Alejandro Note: Please also refer to the separate dictated note~for this date of service dictated separately.~Patient seen individually. Discussed the patient with Nursing staff reviewed the chart.~Reviewed interim history and current functioning. Reviewed vital signs,~Labs/ Radiology~and current medications noted below. Continue current treatment with the changes noted in the dictated addendum note Assessment: Vital Signs: Vital Signs Date Time Temp Pulse Resp B/P (MAP) Pulse Ox O2 Delivery O2 Flow Rate FiO2 06/01/18 20:20 97 Nasal Cannula 2.0 06/01/18 16:15 97.7 78 17 136/65 (88) I&O Intake and Output 06/01/18 07:00 Intake Total 720 ml Balance 720 ml Intake Oral 720 ml # Voids 1 Current Medications: Meds: Current Medications Acetaminophen (Tylenol) 650 mg PRN Q6HRS PRN PO PAIN / TEMP Last administered on 05/26/18at 13:54; Start 05/25/18 at 19:45 Multi-Ingredient Ointment (Analgesic [place]) 1 beka PRN QID PRN TP MUSCLE PAIN; Start 05/25/18 at 19:45 Al Hydroxide/Mg Hydroxide (Mylanta Plus Xs) 15 ml PRN AFTMEALHC PRN PO DYSPEPSIA; Start 05/25/18 at 19:45 Magnesium Hydroxide (Milk Of Magnesia) 2,400 mg PRN QHS PRN PO CONSTIPATION; Start 05/25/18 at 19:45 Nicotine (Nicoderm Cq 21mg) 1 patch DAILY TD Last administered on 06/01/18at 09 :32; Start 05/26/18 at 09:00 Albuterol Sulfate (Ventolin Hfa Inhaler) 1 puff BID INH ; Start 05/25/18 at 21: 00; Stop 05/25/18 at 21:00; Status DC Diltiazem HCl (Cardizem 24hr Cd) 120 mg DAILY PO Last administered on at 09:32; Start 05/26/18 at 09:00 Non-Formulary Medication (Umeclidinium Brm/Vilanterol Tr (Anoro Ellipta 62.5-25 Mcg Inh)) 1 puff BID INH ; Start 05/25/18 at 21:00; Stop 05/25/18 at 21:00; Status DC Albuterol Sulfate (Ventolin) 2.5 mg RTQID NEB Last administered on 06/01/18 20:31; Start 05/25/18 at 21:00 Budesonide (Pulmicort) 0.5 mg RTBID NEB Last administered on 06/01/18 20:31; Start 05/25/18 at 21:00 Albuterol Sulfate (Ventolin) 2.5 mg PRN Q6HRS PRN NEB SHORTNESS OF BREATH Last administered on 05/26/18 06:15; Start 05/25/18 at 21:00 Influenza Virus Vaccine (Afluria Trivalent [id number] Syringe) 0.5 ml ONCE ONCE VAX IM Last administered on 05/26/18 15:24; Start 05/26/18 at 09:00; Stop 05/26/18 at 09:01; Status DC Quetiapine Fumarate (SEROquel) 25 mg QHS PO Last administered on 06/01/18 20: 24; Start 05/27/18 at 21:00 Sertraline HCl (Zoloft) 25 mg DAILY PO Last administered on 05/30/18 08:32; Start 05/28/18 at 09:00; Stop 05/30/18 at 16:11; Status DC Trazodone HCl (Desyrel) 50 mg PRN QHS PRN PO prn insomnia Last administered on 05/29/18 20:26; Start 05/27/18 at 21:00 Sertraline HCl (Zoloft) 50 mg DAILY PO Last administered on 06/01/18 09:32; Start 05/31/18 at 09:00 Mirtazapine (Remeron) 7.5 mg QHS PO Last administered on 06/01/18 20:24; Start 05/30/18 at 21:00 Active Scripts Active Reported Magnesium Oxide 400 Mg Tablet 250 Mg PO DAILY B-12 (Cyanocobalamin (Vitamin B-12)) 1,000 Mcg Tablet.er 1,000 Mcg PO DAILY Latanoprost 2.5 Ml Drops Cartia Xt (Diltiazem Hcl) 120 Mg Cap.er.24h 1 Cap PO DAILY Ventolin Hfa Inhaler (Albuterol Sulfate) 18 Gm Hfa.aer.ad Anoro Ellipta 62.5-25 Mcg Inh (Umeclidinium Brm/Vilanterol Tr) 1 Each Disk.w.dev 1 Puff INH BID I have reviewed the current psychotropics carefully including drug interactions. Risk benefit ratio favors no change other than as noted in my dictated progress note. Diagnosis: Problems: (1) Encounter for behavioral health screening (2) Anxiety disorder (3) Major depressive disorder, recurrent episode (4) Dementia, vascular, with delusions (5) Dementia, vascular, with depression (6) Dementia in Alzheimer's disease with delusions (7) Dementia in Alzheimer's disease with depression (8) Impulse control disorder LENCHO LYNN MD Jun 01, 2018 20:58
--- NOTE | 2018-06-01 21:22 | PN ---
DATE: 05/31/2018 PSYCHIATRIC PROGRESS NOTE This late entry 05/31/2018 covers elements not covered in my initial note. SUBJECTIVE: I met with the patient in the evening. The patient slept 4-1/2 hours previous evening, refused medications, frequently anxious, turning up her oxygen, withdrawn at times. REVIEW OF SYSTEMS: Shortness of breath, impaired ambulation. No CV, , GI, eye system symptoms on review. MENTAL STATUS EXAM: Oriented to herself and situation. Speech coherent, rapid at times, fixated on wanting to be discharged. Abstraction fair, computation impaired, language function intact. Mood and affect remains labile, anxious. LABORATORY DATA: Reviewed. IMPRESSION: Major depressive disorder with psychotic features; anxiety disorder, unspecified; cognitive disorder, unspecified. PLAN: No change from initial note. We have added Remeron 7.5 mg at bedtime, Zoloft was increased to 50 mg a day. MAN Ridge LYNN MD DR: MELVIN/jun JOB#: [id number] / [id number]
[2018-06-02] MEDS: ALBUTEROL SULFATE 2.5 MG/3 ML NEBU. NEB SCH ×4 (05:20→20:48)
[2018-06-02 06:13] VITALS: BP 165/92
[2018-06-02] MEDS: SERTRALINE 50 MG TABLET. PO SCH (08:12)
[2018-06-02] MEDS: NICOTINE 21MG PATCH. TD SCH (08:14)
[2018-06-02] MEDS: BUDESONIDE 0.5 MG/2 ML NEBU NEB SCH ×2 (10:56→20:48)
[2018-06-02 16:38] VITALS: BP 177/76
[2018-06-02 16:50] VITALS: BP 150/77
--- NOTE | 2018-06-02 20:47 | PDOC ---
Exam Note: Alejandro Note: Please also refer to the separate dictated note~for this date of service dictated separately.~Patient seen individually. Discussed the patient with Nursing staff reviewed the chart.~Reviewed interim history and current functioning. Reviewed vital signs,~Labs/ Radiology~and current medications noted below. Continue current treatment with the changes noted in the dictated addendum note Assessment: Vital Signs: Vital Signs Date Time Temp Pulse Resp B/P (MAP) Pulse Ox O2 Delivery O2 Flow Rate FiO2 06/02/18 16:50 86 150/77 (101) 06/02/18 16:38 98.2 20 97 Room Air 06/02/18 10:56 2.0 I&O Intake and Output 06/02/18 07:00 Intake Total 360 ml Balance 360 ml Intake Oral 360 ml # Voids 1 Current Medications: Meds: Current Medications Acetaminophen (Tylenol) 650 mg PRN Q6HRS PRN PO PAIN / TEMP Last administered on 05/26/18at 13:54; Start 05/25/18 at 19:45 Multi-Ingredient Ointment (Analgesic [place]) 1 beka PRN QID PRN TP MUSCLE PAIN; Start 05/25/18 at 19:45 Al Hydroxide/Mg Hydroxide (Mylanta Plus Xs) 15 ml PRN AFTMEALHC PRN PO DYSPEPSIA; Start 05/25/18 at 19:45 Magnesium Hydroxide (Milk Of Magnesia) 2,400 mg PRN QHS PRN PO CONSTIPATION; Start 05/25/18 at 19:45 Nicotine (Nicoderm Cq 21mg) 1 patch DAILY TD Last administered on 06/02/18at 08 :14; Start 05/26/18 at 09:00 Albuterol Sulfate (Ventolin Hfa Inhaler) 1 puff BID INH ; Start 05/25/18 at 21: 00; Stop 05/25/18 at 21:00; Status DC Diltiazem HCl (Cardizem 24hr Cd) 120 mg DAILY PO Last administered on at 08:12; Start 05/26/18 at 09:00 Non-Formulary Medication (Umeclidinium Brm/Vilanterol Tr (Anoro Ellipta 62.5-25 Mcg Inh)) 1 puff BID INH ; Start 05/25/18 at 21:00; Stop 05/25/18 at 21:00; Status DC Albuterol Sulfate (Ventolin) 2.5 mg RTQID NEB Last administered on 06/02/18at 16:23; Start 05/25/18 at 21:00 Budesonide (Pulmicort) 0.5 mg RTBID NEB Last administered on 06/02/18at 10:56; Start 05/25/18 at 21:00 Albuterol Sulfate (Ventolin) 2.5 mg PRN Q6HRS PRN NEB SHORTNESS OF BREATH Last administered on 05/26/18at 06:15; Start 05/25/18 at 21:00 Influenza Virus Vaccine (Afluria Trivalent [id number] Syringe) 0.5 ml ONCE ONCE VAX IM Last administered on 05/26/18at 15:24; Start 05/26/18 at 09:00; Stop 05/26/18 at 09:01; Status DC Quetiapine Fumarate (SEROquel) 25 mg QHS PO Last administered on 05/31/18at 21: 15; Start 05/27/18 at 21:00 Sertraline HCl (Zoloft) 25 mg DAILY PO Last administered on 05/30/18at 08:32; Start 05/28/18 at 09:00; Stop 05/30/18 at 16:11; Status DC Trazodone HCl (Desyrel) 50 mg PRN QHS PRN PO prn insomnia Last administered on 05/29/18at 20:26; Start 05/27/18 at 21:00 Sertraline HCl (Zoloft) 50 mg DAILY PO Last administered on 06/02/18at 08:12; Start 05/31/18 at 09:00 Mirtazapine (Remeron) 7.5 mg QHS PO Last administered on 05/31/18at 21:15; Start 05/30/18 at 21:00 Active Scripts Active Reported Magnesium Oxide 400 Mg Tablet 250 Mg PO DAILY B-12 (Cyanocobalamin (Vitamin B-12)) 1,000 Mcg Tablet.er 1,000 Mcg PO DAILY Latanoprost 2.5 Ml Drops Cartia Xt (Diltiazem Hcl) 120 Mg Cap.er.24h 1 Cap PO DAILY Ventolin Hfa Inhaler (Albuterol Sulfate) 18 Gm Hfa.aer.ad Anoro Ellipta 62.5-25 Mcg Inh (Umeclidinium Brm/Vilanterol Tr) 1 Each Disk.w.dev 1 Puff INH BID I have reviewed the current psychotropics carefully including drug interactions. Risk benefit ratio favors no change other than as noted in my dictated progress note. Diagnosis: Problems: (1) Encounter for behavioral health screening (2) Anxiety disorder (3) Major depressive disorder, recurrent episode (4) Dementia, vascular, with delusions (5) Dementia, vascular, with depression (6) Dementia in Alzheimer's disease with delusions (7) Dementia in Alzheimer's disease with depression (8) Impulse control disorder LENCHO LYNN MD Jun 02, 2018 20:47
[2018-06-02] MEDS: MIRTAZAPINE 7.5 MG TABLET. PO SCH (20:48)
[2018-06-02] MEDS: QUEtiapine 25 MG TABLET. PO SCH (20:48)
[2018-06-03] MEDS: ALBUTEROL SULFATE 2.5 MG/3 ML NEBU. NEB SCH ×4 (05:11→19:11)
[2018-06-03 06:11] VITALS: BP 119/87
[2018-06-03] MEDS: SERTRALINE 50 MG TABLET. PO SCH (07:53)
[2018-06-03] MEDS: NICOTINE 21MG PATCH. TD SCH (07:53)
[2018-06-03] MEDS: BUDESONIDE 0.5 MG/2 ML NEBU NEB SCH ×2 (10:29→19:11)
--- NOTE | 2018-06-03 13:04 | PN ---
DATE: 06/01/2018 PSYCHIATRIC PROGRESS NOTE This is a late entry 06/01/2018 covers elements not covered in my initial note. SUBJECTIVE: I met with the patient in the evening. The patient slept 6-1/4 hours previous night. She has been compliant with her medications. At night, she was angry with staff, slept through breakfast, refused her bedtime medications, took them later, spends much time in her room. REVIEW OF SYSTEMS: Ambulation impaired with walker. No CV, , pulmonary, eye, ENT system symptoms on review. MENTAL STATUS EXAM: Oriented to herself and situation. Speech has some latency, coherent. Abstraction fair, computation impaired, language function intact, attention span short. Mood and affect somewhat withdrawn. Short term memory is impaired. No suicidal or homicidal ideation. IMPRESSION: Major depressive disorder, recurrent, mild cognitive impairment; anxiety disorder, unspecified. PLAN: Continue psychotropics mentioned in my initial note. MAN Ridge LYNN MD DR: MELVIN/jun JOB#: [id number] / [id number]
[2018-06-03 15:49] VITALS: BP 128/62
[2018-06-03] MEDS: MIRTAZAPINE 7.5 MG TABLET. PO SCH (20:35)
[2018-06-03] MEDS: QUEtiapine 25 MG TABLET. PO SCH (20:35)
--- NOTE | 2018-06-03 20:49 | PDOC ---
Exam Note: Alejandro Note: Please also refer to the separate dictated note~for this date of service dictated separately.~Patient seen individually. Discussed the patient with Nursing staff reviewed the chart.~Reviewed interim history and current functioning. Reviewed vital signs,~Labs/ Radiology~and current medications noted below. Continue current treatment with the changes noted in the dictated addendum note Assessment: Vital Signs: Vital Signs Date Time Temp Pulse Resp B/P (MAP) Pulse Ox O2 Delivery O2 Flow Rate FiO2 06/03/18 19:10 100 Nasal Cannula 2.0 06/03/18 15:49 98.1 95 19 128/62 (84) I&O Intake and Output 06/03/18 07:00 Intake Total 1320 ml Balance 1320 ml Intake Oral 1320 ml Current Medications: Meds: Current Medications Acetaminophen (Tylenol) 650 mg PRN Q6HRS PRN PO PAIN / TEMP Last administered on 05/26/18at 13:54; Start 05/25/18 at 19:45 Multi-Ingredient Ointment (Analgesic [place]) 1 beka PRN QID PRN TP MUSCLE PAIN; Start 05/25/18 at 19:45 Al Hydroxide/Mg Hydroxide (Mylanta Plus Xs) 15 ml PRN AFTMEALHC PRN PO DYSPEPSIA; Start 05/25/18 at 19:45 Magnesium Hydroxide (Milk Of Magnesia) 2,400 mg PRN QHS PRN PO CONSTIPATION; Start 05/25/18 at 19:45 Nicotine (Nicoderm Cq 21mg) 1 patch DAILY TD Last administered on 06/03/18at 07 :53; Start 05/26/18 at 09:00 Albuterol Sulfate (Ventolin Hfa Inhaler) 1 puff BID INH ; Start 05/25/18 at 21: 00; Stop 05/25/18 at 21:00; Status DC Diltiazem HCl (Cardizem 24hr Cd) 120 mg DAILY PO Last administered on at 07:53; Start 05/26/18 at 09:00 Non-Formulary Medication (Umeclidinium Brm/Vilanterol Tr (Anoro Ellipta 62.5-25 Mcg Inh)) 1 puff BID INH ; Start 05/25/18 at 21:00; Stop 05/25/18 at 21:00; Status DC Albuterol Sulfate (Ventolin) 2.5 mg RTQID NEB Last administered on 06/03/18at 19:11; Start 05/25/18 at 21:00 Budesonide (Pulmicort) 0.5 mg RTBID NEB Last administered on 06/03/18at 19:11; Start 05/25/18 at 21:00 Albuterol Sulfate (Ventolin) 2.5 mg PRN Q6HRS PRN NEB SHORTNESS OF BREATH Last administered on 05/26/18at 06:15; Start 05/25/18 at 21:00 Influenza Virus Vaccine (Afluria Trivalent [id number] Syringe) 0.5 ml ONCE ONCE VAX IM Last administered on 05/26/18at 15:24; Start 05/26/18 at 09:00; Stop 05/26/18 at 09:01; Status DC Quetiapine Fumarate (SEROquel) 25 mg QHS PO Last administered on 06/03/18at 20: 35; Start 05/27/18 at 21:00 Sertraline HCl (Zoloft) 25 mg DAILY PO Last administered on 05/30/18at 08:32; Start 05/28/18 at 09:00; Stop 05/30/18 at 16:11; Status DC Trazodone HCl (Desyrel) 50 mg PRN QHS PRN PO prn insomnia Last administered on 05/29/18 20:26; Start 05/27/18 at 21:00 Sertraline HCl (Zoloft) 50 mg DAILY PO Last administered on 06/03/18at 07:53; Start 05/31/18 at 09:00; Stop 06/03/18 at 16:36; Status DC Mirtazapine (Remeron) 7.5 mg QHS PO Last administered on 06/03/18at 20:35; Start 05/30/18 at 21:00 Sertraline HCl (Zoloft) 75 mg DAILY PO ; Start 06/04/18 at 09:00 Active Scripts Active Reported Magnesium Oxide 400 Mg Tablet 250 Mg PO DAILY B-12 (Cyanocobalamin (Vitamin B-12)) 1,000 Mcg Tablet.er 1,000 Mcg PO DAILY Latanoprost 2.5 Ml Drops Cartia Xt (Diltiazem Hcl) 120 Mg Cap.er.24h 1 Cap PO DAILY Ventolin Hfa Inhaler (Albuterol Sulfate) 18 Gm Hfa.aer.ad Anoro Ellipta 62.5-25 Mcg Inh (Umeclidinium Brm/Vilanterol Tr) 1 Each Disk.w.dev 1 Puff INH BID I have reviewed the current psychotropics carefully including drug interactions. Risk benefit ratio favors no change other than as noted in my dictated progress note. Diagnosis: Problems: (1) Encounter for behavioral health screening (2) Anxiety disorder (3) Major depressive disorder, recurrent episode (4) Dementia, vascular, with delusions (5) Dementia, vascular, with depression (6) Dementia in Alzheimer's disease with delusions (7) Dementia in Alzheimer's disease with depression (8) Impulse control disorder LENCHO LYNN MD Jun 03, 2018 20:49
--- NOTE | 2018-06-03 22:34 | PN ---
DATE: 06/02/2018 This is a late entry for 06/02/2018 covers elements not covered in my initial note. SUBJECTIVE: I met with the patient in the evening and staffed at a treatment team meeting with the entire team in the morning. The patient's daughter, Judit, attended the treatment team meeting. Reviewed the patient's history. The patient remains somewhat resistive to medications, isolates in her room, slept 5-1/2 hours previous evening. Appetite is poor. She has been refusing showers, somewhat obsessed, anxious about the oxygen, keeps turning it on higher than the 2 liters that she needs. Daughter was questioning whether the patient has the capacity to make decisions for herself and we will have psychological testing with Dr. Vaca for clarification. REVIEW OF SYSTEMS: Shortness of breath, impaired ambulation with walker. No CV, GI, , ENT system symptoms on review. MENTAL STATUS EXAM: Oriented to herself and situation. Speech has some latency, coherent. Abstraction fair, computation impaired, language function intact, attention span short. Mood and affect still somewhat dysphoric, anxious, but improved. LABORATORY DATA: Reviewed. IMPRESSION: Major depressive disorder, recurrent, in partial remission; cognitive disorder, unspecified. PLAN: No change from initial note. Continue psychotropics per initial note. MAN Ridge LYNN MD DR: MELVIN/jun JOB#: [id number] / [id number]
[2018-06-04] MEDS: ALBUTEROL SULFATE 2.5 MG/3 ML NEBU. NEB SCH ×4 (05:00→19:40)
[2018-06-04 05:48] VITALS: BP 174/61
[2018-06-04] MEDS: NICOTINE 21MG PATCH. TD SCH (08:25)
[2018-06-04] MEDS: SERTRALINE 50 MG TABLET. PO SCH (08:25)
[2018-06-04 11:08] LABS: BASO # 0.1 x10^3/uL (0.0-0.2); BASO % 1 % (0-3); EOS # 0.2 x10^3/uL (0.0-0.7); EOS % 4 % (0-3); HEMATOCRIT 47.3 % (36.0-47.0); LYMPH # 1.1 x10^3/uL (1.0-4.8); LYMPH % 17 % (24-48); MEAN CORPUSCULAR HEMOGLOBIN 32 pg (25-35); MEAN CORPUSCULAR HGB CONC 34 g/dL (31-37); MEAN CORPUSCULAR VOLUME 95 fL (79-100); MONO # 0.4 x10^3/uL (0.0-1.1); MONO % 6 % (0-9); NEUT # 4.7 x10^3uL (1.8-7.7); NEUT % 73 % (31-73); PLATELET COUNT 331 x10^3/uL (140-400); RED CELL DISTRIBUTION WIDTH 13.8 % (11.5-14.5); WHITE BLOOD COUNT 6.5 x10^3/uL (4.0-11.0)
[2018-06-04 11:29] LABS: ALBUMIN 3.6 g/dL (3.4-5.0); CALCIUM 9.4 mg/dL (8.5-10.1); CREATININE 0.7 mg/dL (0.6-1.0); GFR 80.7; TOTAL BILIRUBIN 0.6 mg/dL (0.2-1.0); TOTAL PROTEIN 7.1 g/dL (6.4-8.2)
[2018-06-04] MEDS: BUDESONIDE 0.5 MG/2 ML NEBU NEB SCH ×2 (11:37→19:40)
[2018-06-04 16:35] VITALS: BP 157/82
--- NOTE | 2018-06-04 19:31 | PN ---
DATE: 06/03/2018 PSYCHIATRIC PROGRESS NOTE This late entry 06/03/2018 covers elements not covered in my initial note. SUBJECTIVE: I met with the patient in the evening in her room. Per nursing report, the patient slept 8-1/4 hours previous night, comes out for meals, otherwise withdrawn to her room. Dr. Vaca has been requested for neuropsychological testing to assess capacity to make decisions for herself. REVIEW OF SYSTEMS: Shortness of breath, some tiredness. No CV, , GI, eye system symptoms on review. MENTAL STATUS EXAM: Oriented to herself and situation. Speech moderate latency, coherent. Abstraction fair, computation impaired, language function intact, attention span short. Mood and affect somewhat withdrawn. LABORATORY DATA: Reviewed. IMPRESSION: Unchanged from initial note. PLAN: Increase Zoloft from 50 mg a day to 75 mg a day after she has been on 50 for 3 days. Continue Remeron, Seroquel unchanged. MAN Ridge LYNN MD DR: MELVIN/jun JOB#: [id number] / [id number]
[2018-06-04] MEDS: MIRTAZAPINE 7.5 MG TABLET. PO SCH (19:51)
[2018-06-04] MEDS: QUEtiapine 25 MG TABLET. PO SCH (19:51)
--- NOTE | 2018-06-04 22:47 | PDOC ---
Exam Note: Alejandro Note: Please also refer to the separate dictated note~for this date of service dictated separately.~Patient seen individually. Discussed the patient with Nursing staff reviewed the chart.~Reviewed interim history and current functioning. Reviewed vital signs,~Labs/ Radiology~and current medications noted below. Continue current treatment with the changes noted in the dictated addendum note Assessment: Vital Signs: Vital Signs Date Time Temp Pulse Resp B/P (MAP) Pulse Ox O2 Delivery O2 Flow Rate FiO2 06/04/18 19:40 98 Nasal Cannula 2.0 06/04/18 16:35 97.9 82 24 157/82 (107) I&O Intake and Output 06/04/18 07:00 Intake Total 720 ml Balance 720 ml Intake Oral 720 ml Labs: Laboratory Tests Test 06/04/18 10:09 White Blood Count 6.5 x10^3/uL (4.0-11.0) Red Blood Count 5.00 x10^6/uL (3.50-5.40) Hemoglobin 16.0 g/dL (12.0-15.5) H Hematocrit 47.3 % (36.0-47.0) H Mean Corpuscular Volume 95 fL (79-100) Mean Corpuscular Hemoglobin 32 pg (25-35) Mean Corpuscular Hemoglobin Concent 34 g/dL (31-37) Red Cell Distribution Width 13.8 % (11.5-14.5) Platelet Count 331 x10^3/uL (140-400) Neutrophils (%) (Auto) 73 % (31-73) Lymphocytes (%) (Auto) 17 % (24-48) L Monocytes (%) (Auto) 6 % (0-9) Eosinophils (%) (Auto) 4 % (0-3) H Basophils (%) (Auto) 1 % (0-3) Neutrophils # (Auto) 4.7 x10^3uL (1.8-7.7) Lymphocytes # (Auto) 1.1 x10^3/uL (1.0-4.8) Monocytes # (Auto) 0.4 x10^3/uL (0.0-1.1) Eosinophils # (Auto) 0.2 x10^3/uL (0.0-0.7) Basophils # (Auto) 0.1 x10^3/uL (0.0-0.2) Sodium Level 144 mmol/L (136-145) Potassium Level 3.0 mmol/L (3.5-5.1) L Chloride Level 101 mmol/L (98-107) Carbon Dioxide Level 41 mmol/L (21-32) H Anion Gap 2 (6-14) L Blood Urea Nitrogen 26 mg/dL (7-20) H Creatinine 0.7 mg/dL (0.6-1.0) Estimated GFR (Cockcroft-Gault) 80.7 BUN/Creatinine Ratio 37 (6-20) H Glucose Level 107 mg/dL (70-99) H Calcium Level 9.4 mg/dL (8.5-10.1) Total Bilirubin 0.6 mg/dL (0.2-1.0) Aspartate Amino Transferase (AST) 28 U/L (15-37) Alanine Aminotransferase (ALT) 41 U/L (14-59) Alkaline Phosphatase 122 U/L (46-116) H Total Protein 7.1 g/dL (6.4-8.2) Albumin 3.6 g/dL (3.4-5.0) Albumin/Globulin Ratio 1.0 (1.0-1.7) Current Medications: Meds: Current Medications Acetaminophen (Tylenol) 650 mg PRN Q6HRS PRN PO PAIN / TEMP Last administered on 05/26/18at 13:54; Start 05/25/18 at 19:45 Multi-Ingredient Ointment (Analgesic [place]) 1 beka PRN QID PRN TP MUSCLE PAIN; Start 05/25/18 at 19:45 Al Hydroxide/Mg Hydroxide (Mylanta Plus Xs) 15 ml PRN AFTMEALHC PRN PO DYSPEPSIA; Start 05/25/18 at 19:45 Magnesium Hydroxide (Milk Of Magnesia) 2,400 mg PRN QHS PRN PO CONSTIPATION; Start 05/25/18 at 19:45 Nicotine (Nicoderm Cq 21mg) 1 patch DAILY TD Last administered on 06/04/18at 08 :25; Start 05/26/18 at 09:00 Albuterol Sulfate (Ventolin Hfa Inhaler) 1 puff BID INH ; Start 05/25/18 at 21: 00; Stop 05/25/18 at 21:00; Status DC Diltiazem HCl (Cardizem 24hr Cd) 120 mg DAILY PO Last administered on 08:25; Start 05/26/18 at 09:00 Non-Formulary Medication (Umeclidinium Brm/Vilanterol Tr (Anoro Ellipta 62.5-25 Mcg Inh)) 1 puff BID INH ; Start 05/25/18 at 21:00; Stop 05/25/18 at 21:00; Status DC Albuterol Sulfate (Ventolin) 2.5 mg RTQID NEB Last administered on 06/04/18 19:40; Start 05/25/18 at 21:00 Budesonide (Pulmicort) 0.5 mg RTBID NEB Last administered on 06/04/18 19:40; Start 05/25/18 at 21:00 Albuterol Sulfate (Ventolin) 2.5 mg PRN Q6HRS PRN NEB SHORTNESS OF BREATH Last administered on 05/26/18 06:15; Start 05/25/18 at 21:00 Influenza Virus Vaccine (Afluria Trivalent [id number] Syringe) 0.5 ml ONCE ONCE VAX IM Last administered on 05/26/18 15:24; Start 05/26/18 at 09:00; Stop 05/26/18 at 09:01; Status DC Quetiapine Fumarate (SEROquel) 25 mg QHS PO Last administered on 06/04/18 19: 51; Start 05/27/18 at 21:00 Sertraline HCl (Zoloft) 25 mg DAILY PO Last administered on 05/30/18at 08:32; Start 05/28/18 at 09:00; Stop 05/30/18 at 16:11; Status DC Trazodone HCl (Desyrel) 50 mg PRN QHS PRN PO prn insomnia Last administered on 05/29/18 20:26; Start 05/27/18 at 21:00 Sertraline HCl (Zoloft) 50 mg DAILY PO Last administered on 06/03/18at 07:53; Start 05/31/18 at 09:00; Stop 06/03/18 at 16:36; Status DC Mirtazapine (Remeron) 7.5 mg QHS PO Last administered on 06/04/18 19:51; Start 05/30/18 at 21:00 Sertraline HCl (Zoloft) 75 mg DAILY PO Last administered on 06/04/18at 08:25; Start 06/04/18 at 09:00 Active Scripts Active Reported Magnesium Oxide 400 Mg Tablet 250 Mg PO DAILY B-12 (Cyanocobalamin (Vitamin B-12)) 1,000 Mcg Tablet.er 1,000 Mcg PO DAILY Latanoprost 2.5 Ml Drops Cartia Xt (Diltiazem Hcl) 120 Mg Cap.er.24h 1 Cap PO DAILY Ventolin Hfa Inhaler (Albuterol Sulfate) 18 Gm Hfa.aer.ad Anoro Ellipta 62.5-25 Mcg Inh (Umeclidinium Brm/Vilanterol Tr) 1 Each Disk.w.dev 1 Puff INH BID I have reviewed the current psychotropics carefully including drug interactions. Risk benefit ratio favors no change other than as noted in my dictated progress note. Diagnosis: Problems: (1) Encounter for behavioral health screening (2) Anxiety disorder (3) Major depressive disorder, recurrent episode (4) Dementia, vascular, with delusions (5) Dementia, vascular, with depression (6) Dementia in Alzheimer's disease with delusions (7) Dementia in Alzheimer's disease with depression (8) Impulse control disorder LENCHO LYNN MD Jun 04, 2018 22:47
[2018-06-05] MEDS: ALBUTEROL SULFATE 2.5 MG/3 ML NEBU. NEB SCH ×4 (05:03→20:09)
[2018-06-05 06:25] VITALS: BP 156/83
[2018-06-05] MEDS: SERTRALINE 50 MG TABLET. PO SCH (08:22)
[2018-06-05] MEDS: NICOTINE 21MG PATCH. TD SCH (08:22)
[2018-06-05] MEDS: BUDESONIDE 0.5 MG/2 ML NEBU NEB SCH ×2 (11:12→20:09)
[2018-06-05 16:11] VITALS: BP 136/79
[2018-06-05] MEDS: QUEtiapine 25 MG TABLET. PO SCH (20:25)
[2018-06-05] MEDS: MIRTAZAPINE 7.5 MG TABLET. PO SCH (20:25)
--- NOTE | 2018-06-05 20:50 | PDOC ---
Exam Note: Alejandro Note: Please also refer to the separate dictated note~for this date of service dictated separately.~Patient seen individually. Discussed the patient with Nursing staff reviewed the chart.~Reviewed interim history and current functioning. Reviewed vital signs,~Labs/ Radiology~and current medications noted below. Continue current treatment with the changes noted in the dictated addendum note Assessment: Vital Signs: Vital Signs Date Time Temp Pulse Resp B/P (MAP) Pulse Ox O2 Delivery O2 Flow Rate FiO2 06/05/18 20:10 95 Nasal Cannula 2.0 06/05/18 16:11 98.5 69 20 136/79 (98) I&O Intake and Output 06/05/18 07:00 Intake Total 480 ml Balance 480 ml Intake Oral 480 ml Current Medications: Meds: Current Medications Acetaminophen (Tylenol) 650 mg PRN Q6HRS PRN PO PAIN / TEMP Last administered on 05/26/18at 13:54; Start 05/25/18 at 19:45 Multi-Ingredient Ointment (Analgesic [place]) 1 beka PRN QID PRN TP MUSCLE PAIN; Start 05/25/18 at 19:45 Al Hydroxide/Mg Hydroxide (Mylanta Plus Xs) 15 ml PRN AFTMEALHC PRN PO DYSPEPSIA; Start 05/25/18 at 19:45 Magnesium Hydroxide (Milk Of Magnesia) 2,400 mg PRN QHS PRN PO CONSTIPATION; Start 05/25/18 at 19:45 Nicotine (Nicoderm Cq 21mg) 1 patch DAILY TD Last administered on 06/05/18at 08 :22; Start 05/26/18 at 09:00 Albuterol Sulfate (Ventolin Hfa Inhaler) 1 puff BID INH ; Start 05/25/18 at 21: 00; Stop 05/25/18 at 21:00; Status DC Diltiazem HCl (Cardizem 24hr Cd) 120 mg DAILY PO Last administered on at 08:22; Start 05/26/18 at 09:00 Non-Formulary Medication (Umeclidinium Brm/Vilanterol Tr (Anoro Ellipta 62.5-25 Mcg Inh)) 1 puff BID INH ; Start 05/25/18 at 21:00; Stop 05/25/18 at 21:00; Status DC Albuterol Sulfate (Ventolin) 2.5 mg RTQID NEB Last administered on 06/05/18 20:09; Start 05/25/18 at 21:00 Budesonide (Pulmicort) 0.5 mg RTBID NEB Last administered on 06/05/18 20:09; Start 05/25/18 at 21:00 Albuterol Sulfate (Ventolin) 2.5 mg PRN Q6HRS PRN NEB SHORTNESS OF BREATH Last administered on 05/26/18 06:15; Start 05/25/18 at 21:00 Influenza Virus Vaccine (Afluria Trivalent [id number] Syringe) 0.5 ml ONCE ONCE VAX IM Last administered on 05/26/18 15:24; Start 05/26/18 at 09:00; Stop 05/26/18 at 09:01; Status DC Quetiapine Fumarate (SEROquel) 25 mg QHS PO Last administered on 06/05/18 20: 25; Start 05/27/18 at 21:00 Sertraline HCl (Zoloft) 25 mg DAILY PO Last administered on 05/30/18at 08:32; Start 05/28/18 at 09:00; Stop 05/30/18 at 16:11; Status DC Trazodone HCl (Desyrel) 50 mg PRN QHS PRN PO prn insomnia Last administered on 05/29/18 20:26; Start 05/27/18 at 21:00 Sertraline HCl (Zoloft) 50 mg DAILY PO Last administered on 06/03/18at 07:53; Start 05/31/18 at 09:00; Stop 06/03/18 at 16:36; Status DC Mirtazapine (Remeron) 7.5 mg QHS PO Last administered on 06/05/18 20:25; Start 05/30/18 at 21:00 Sertraline HCl (Zoloft) 75 mg DAILY PO Last administered on 06/05/18at 08:22; Start 06/04/18 at 09:00 Active Scripts Active Reported Magnesium Oxide 400 Mg Tablet 250 Mg PO DAILY B-12 (Cyanocobalamin (Vitamin B-12)) 1,000 Mcg Tablet.er 1,000 Mcg PO DAILY Latanoprost 2.5 Ml Drops Cartia Xt (Diltiazem Hcl) 120 Mg Cap.er.24h 1 Cap PO DAILY Ventolin Hfa Inhaler (Albuterol Sulfate) 18 Gm Hfa.aer.ad Anoro Ellipta 62.5-25 Mcg Inh (Umeclidinium Brm/Vilanterol Tr) 1 Each Disk.w.dev 1 Puff INH BID I have reviewed the current psychotropics carefully including drug interactions. Risk benefit ratio favors no change other than as noted in my dictated progress note. Diagnosis: Problems: (1) Encounter for behavioral health screening (2) Anxiety disorder (3) Major depressive disorder, recurrent episode (4) Dementia, vascular, with delusions (5) Dementia, vascular, with depression (6) Dementia in Alzheimer's disease with delusions (7) Dementia in Alzheimer's disease with depression (8) Impulse control disorder LENCHO LYNN MD Jun 05, 2018 20:50
--- NOTE | 2018-06-06 03:42 | PN ---
DATE: 06/04/2018 This is a late entry for 06/04/2018 covers elements not covered in my initial note. SUBJECTIVE: I met with the patient in the evening. The patient slept 6-1/4 hours previous night. The patient remains withdrawn in her room, but less depressed. REVIEW OF SYSTEMS: Shortness of breath, some impairment of ambulation. No CV, , eye, ENT system symptoms on review. MENTAL STATUS EXAM: Reasonably oriented. Speech has some latency, coherent, low in volume. Abstraction fair, computation impaired, language function intact, attention span short. Mood and affect somewhat dysphoric, but improved. LABORATORY DATA: Reviewed. No suicidal ideation. IMPRESSION: Unchanged from initial note. PLAN: No change from initial note. MAN Ridge LYNN MD DR: MELVIN/jun JOB#: [id number] / [id number]
[2018-06-06] MEDS: ALBUTEROL SULFATE 2.5 MG/3 ML NEBU. NEB SCH ×4 (05:23→20:13)
[2018-06-06 06:35] VITALS: BP 165/70
[2018-06-06] MEDS: SERTRALINE 50 MG TABLET. PO SCH (07:52)
[2018-06-06] MEDS: NICOTINE 21MG PATCH. TD SCH (07:52)
[2018-06-06] MEDS: BUDESONIDE 0.5 MG/2 ML NEBU NEB SCH ×2 (11:11→20:13)
[2018-06-06 16:20] VITALS: BP 163/99
[2018-06-06 20:41] LABS: BASO % 1 % (0-3); EOS # 0.2 x10^3/uL (0.0-0.7); EOS % 4 % (0-3); LYMPH % 18 % (24-48); MEAN CORPUSCULAR HEMOGLOBIN 32 pg (25-35); MEAN CORPUSCULAR HGB CONC 33 g/dL (31-37); MEAN CORPUSCULAR VOLUME 95 fL (79-100); MONO # 0.5 x10^3/uL (0.0-1.1); MONO % 9 % (0-9); NEUT # 3.8 x10^3uL (1.8-7.7); NEUT % 69 % (31-73); PLATELET COUNT 263 x10^3/uL (140-400); RED BLOOD COUNT 4.41 x10^6/uL (3.50-5.40); RED CELL DISTRIBUTION WIDTH 13.4 % (11.5-14.5); WHITE BLOOD COUNT 5.6 x10^3/uL (4.0-11.0)
[2018-06-06 20:53] LABS: ALBUMIN 3.3 g/dL (3.4-5.0); ALBUMIN/GLOBULIN RATIO 1.1 (1.0-1.7); CALCIUM 9.6 mg/dL (8.5-10.1); CREATININE 0.6 mg/dL (0.6-1.0); GFR 96.4; POTASSIUM 4.1 mmol/L (3.5-5.1); TOTAL BILIRUBIN 0.3 mg/dL (0.2-1.0); TOTAL PROTEIN 6.4 g/dL (6.4-8.2)
[2018-06-06] MEDS: MIRTAZAPINE 7.5 MG TABLET. PO SCH (20:57)
[2018-06-06] MEDS: QUEtiapine 25 MG TABLET. PO SCH (20:57)
--- NOTE | 2018-06-06 23:06 | PN ---
DATE: 06/05/2018 PSYCHIATRIC PROGRESS NOTE This late entry 06/05/2018 covers elements not covered in my initial note. SUBJECTIVE: I met with the patient in the evening. The patient slept 5-1/2 hours previous night. Overall, the patient is doing a little better, somewhat withdrawn, but cognitively reasonable other than some short-term memory deficits. REVIEW OF SYSTEMS: Shortness of breath, impaired ambulation with walker. No CV, , GI, eye system symptoms on review. She remains on O2 supplements. MENTAL STATUS EXAM: I met with her in her room, reasonably oriented. Speech coherent, abstraction fair. Computation, able to do one step serial 7's. Mood and affect somewhat withdrawn, but improved. No suicidal or homicidal ideation. LABORATORY DATA: Reviewed. IMPRESSION: Major depressive disorder with psychotic features in partial remission; cognitive disorder, unspecified. PLAN: No change from initial note. Maintain Zoloft, Seroquel, Remeron along with trazodone p.r.n. LENCHO LYNN MD DR: MELVIN/jun JOB#: [id number] / [id number]
[2018-06-07] MEDS: ALBUTEROL SULFATE 2.5 MG/3 ML NEBU. NEB SCH ×4 (05:18→20:59)
[2018-06-07 06:28] VITALS: BP 173/80
[2018-06-07] MEDS: NICOTINE 21MG PATCH. TD SCH (07:52)
[2018-06-07] MEDS: SERTRALINE 50 MG TABLET. PO SCH (07:55)
[2018-06-07] MEDS: BUDESONIDE 0.5 MG/2 ML NEBU NEB SCH ×2 (11:42→20:58)
[2018-06-07 16:36] VITALS: BP 164/77
[2018-06-07] MEDS: QUEtiapine 25 MG TABLET. PO SCH (20:07)
[2018-06-07] MEDS: MIRTAZAPINE 7.5 MG TABLET. PO SCH (20:07)
--- NOTE | 2018-06-07 23:19 | PDOC ---
Exam Note: Alejandro Note: Please also refer to the separate dictated note~for this date of service dictated separately.~Patient seen individually. Discussed the patient with Nursing staff reviewed the chart.~Reviewed interim history and current functioning. Reviewed vital signs,~Labs/ Radiology~and current medications noted below. Continue current treatment with the changes noted in the dictated addendum note Assessment: Vital Signs: Vital Signs Date Time Temp Pulse Resp B/P (MAP) Pulse Ox O2 Delivery O2 Flow Rate FiO2 06/07/18 20:35 98 Nasal Cannula 2.0 06/07/18 16:36 97.8 85 18 164/77 (106) I&O Intake and Output 06/07/18 07:00 Intake Total 700 ml Balance 700 ml Intake Oral 700 ml Current Medications: Meds: Current Medications Acetaminophen (Tylenol) 650 mg PRN Q6HRS PRN PO PAIN / TEMP Last administered on 05/26/18at 13:54; Start 05/25/18 at 19:45 Multi-Ingredient Ointment (Analgesic [place]) 1 beka PRN QID PRN TP MUSCLE PAIN; Start 05/25/18 at 19:45 Al Hydroxide/Mg Hydroxide (Mylanta Plus Xs) 15 ml PRN AFTMEALHC PRN PO DYSPEPSIA; Start 05/25/18 at 19:45 Magnesium Hydroxide (Milk Of Magnesia) 2,400 mg PRN QHS PRN PO CONSTIPATION; Start 05/25/18 at 19:45 Nicotine (Nicoderm Cq 21mg) 1 patch DAILY TD Last administered on 06/07/18at 07 :52; Start 05/26/18 at 09:00 Albuterol Sulfate (Ventolin Hfa Inhaler) 1 puff BID INH ; Start 05/25/18 at 21: 00; Stop 05/25/18 at 21:00; Status DC Diltiazem HCl (Cardizem 24hr Cd) 120 mg DAILY PO Last administered on at 07:53; Start 05/26/18 at 09:00 Non-Formulary Medication (Umeclidinium Brm/Vilanterol Tr (Anoro Ellipta 62.5-25 Mcg Inh)) 1 puff BID INH ; Start 05/25/18 at 21:00; Stop 05/25/18 at 21:00; Status DC Albuterol Sulfate (Ventolin) 2.5 mg RTQID NEB Last administered on 06/07/18at 20:59; Start 05/25/18 at 21:00 Budesonide (Pulmicort) 0.5 mg RTBID NEB Last administered on 06/07/18 20:58; Start 05/25/18 at 21:00 Albuterol Sulfate (Ventolin) 2.5 mg PRN Q6HRS PRN NEB SHORTNESS OF BREATH Last administered on 05/26/18 06:15; Start 05/25/18 at 21:00 Influenza Virus Vaccine (Afluria Trivalent [id number] Syringe) 0.5 ml ONCE ONCE VAX IM Last administered on 05/26/18 15:24; Start 05/26/18 at 09:00; Stop 05/26/18 at 09:01; Status DC Quetiapine Fumarate (SEROquel) 25 mg QHS PO Last administered on 06/07/18 20: 07; Start 05/27/18 at 21:00 Sertraline HCl (Zoloft) 25 mg DAILY PO Last administered on 05/30/18at 08:32; Start 05/28/18 at 09:00; Stop 05/30/18 at 16:11; Status DC Trazodone HCl (Desyrel) 50 mg PRN QHS PRN PO prn insomnia Last administered on 05/29/18 20:26; Start 05/27/18 at 21:00 Sertraline HCl (Zoloft) 50 mg DAILY PO Last administered on 06/03/18at 07:53; Start 05/31/18 at 09:00; Stop 06/03/18 at 16:36; Status DC Mirtazapine (Remeron) 7.5 mg QHS PO Last administered on 06/07/18 20:07; Start 05/30/18 at 21:00 Sertraline HCl (Zoloft) 75 mg DAILY PO Last administered on 06/07/18at 07:55; Start 06/04/18 at 09:00 Active Scripts Active Reported Magnesium Oxide 400 Mg Tablet 250 Mg PO DAILY B-12 (Cyanocobalamin (Vitamin B-12)) 1,000 Mcg Tablet.er 1,000 Mcg PO DAILY Latanoprost 2.5 Ml Drops Cartia Xt (Diltiazem Hcl) 120 Mg Cap.er.24h 1 Cap PO DAILY Ventolin Hfa Inhaler (Albuterol Sulfate) 18 Gm Hfa.aer.ad Anoro Ellipta 62.5-25 Mcg Inh (Umeclidinium Brm/Vilanterol Tr) 1 Each Disk.w.dev 1 Puff INH BID I have reviewed the current psychotropics carefully including drug interactions. Risk benefit ratio favors no change other than as noted in my dictated progress note. Diagnosis: Problems: (1) Encounter for behavioral health screening (2) Anxiety disorder (3) Major depressive disorder, recurrent episode (4) Dementia, vascular, with delusions (5) Dementia, vascular, with depression (6) Dementia in Alzheimer's disease with delusions (7) Dementia in Alzheimer's disease with depression (8) Impulse control disorder LENCHO LYNN MD Jun 07, 2018 23:19
[2018-06-08] MEDS ORDERED: NICO1PAT21 TD (05:07)
[2018-06-08] MEDS ORDERED: QUET25TA5 PO (05:08)
[2018-06-08] MEDS ORDERED: MIRT15TA PO (05:09)
[2018-06-08] MEDS ORDERED: TRAZ-85 PO (05:10)
[2018-06-08] MEDS: ALBUTEROL SULFATE 2.5 MG/3 ML NEBU. NEB SCH (05:10)
[2018-06-08] MEDS ORDERED: SERT50TA PO (05:10)
--- NOTE | 2018-06-08 05:10 | PN ---
DATE: 06/06/2018 This late entry for 06/06/2018 covers elements not covered in my initial note. SUBJECTIVE: I met with the patient in the evening. The patient slept 9-3/4 hours previous evening. She still remains withdrawn, spends much time in her room, but has better eye contact, more interactive. REVIEW OF SYSTEMS: Shortness of breath, impaired ambulation. No CV, , GI, eye system symptoms on review. MENTAL STATUS EXAM: Reasonably oriented. Speech has some latency, coherent. Abstraction fair, computation impaired, language function intact, attention span short. Mood and affect, still somewhat withdrawn. No suicidal or homicidal ideation. LABORATORY DATA: Reviewed. IMPRESSION: Major depressive disorder with psychotic features in partial remission; cognitive disorder, unspecified. PLAN: No change from initial note. MAN Ridge LYNN MD DR: MELVIN/jun JOB#: [id number] / [id number]
[2018-06-08] MEDS ORDERED: ACET325T9 PO (05:11)
[2018-06-08] MEDS ORDERED: MAGN2400 PO (05:12)
[2018-06-08] MEDS ORDERED: METH29OI TP (05:15)
[2018-06-08] MEDS ORDERED: BUDE0.5A3 NEB (05:17)
[2018-06-08] MEDS ORDERED: ALBU2.5V14 NEB (05:18)
[2018-06-08 06:07] VITALS: BP 161/84
[2018-06-08] MEDS ORDERED: MAG355OR17 PO (07:26)
[2018-06-08 07:49] VITALS: BP 161/84
[2018-06-08] MEDS: NICOTINE 21MG PATCH. TD SCH (07:49)
[2018-06-08] MEDS: SERTRALINE 50 MG TABLET. PO SCH (07:49)
--- NOTE | 2018-06-08 18:46 | PDOC ---
Exam Note: Alejandro Note: Please also refer to the separate dictated note~for this date of service dictated separately.~Patient seen individually. Discussed the patient with Nursing staff reviewed the chart.~Reviewed interim history and current functioning. Reviewed vital signs,~Labs/ Radiology~and current medications noted below. Continue current treatment with the changes noted in the dictated addendum note Assessment: Vital Signs: Vital Signs Date Time Temp Pulse Resp B/P (MAP) Pulse Ox O2 Delivery O2 Flow Rate FiO2 06/08/18 07:49 94 161/84 06/08/18 06:07 98.0 20 94 06/08/18 05:05 Nasal Cannula 2.0 I&O Intake and Output 06/08/18 07:00 Intake Total 1200 ml Balance 1200 ml Intake Oral 1200 ml Current Medications: Meds: Current Medications Acetaminophen (Tylenol) 650 mg PRN Q6HRS PRN PO PAIN / TEMP Last administered on 05/26/18at 13:54; Start 05/25/18 at 19:45; Stop 06/08/18 at 10:47; Status DC Multi-Ingredient Ointment (Analgesic [place]) 1 tammi PRN QID PRN TP MUSCLE PAIN; Start 05/25/18 at 19:45; Stop 06/08/18 at 10:47; Status DC Al Hydroxide/Mg Hydroxide (Mylanta Plus Xs) 15 ml PRN AFTMEALHC PRN PO DYSPEPSIA; Start 05/25/18 at 19:45; Stop 06/08/18 at 10:47; Status DC Magnesium Hydroxide (Milk Of Magnesia) 2,400 mg PRN QHS PRN PO CONSTIPATION; Start 05/25/18 at 19:45; Stop 06/08/18 at 10:47; Status DC Nicotine (Nicoderm Cq 21mg) 1 patch DAILY TD Last administered on 06/08/18at 07 :49; Start 05/26/18 at 09:00; Stop 06/08/18 at 10:47; Status DC Albuterol Sulfate (Ventolin Hfa Inhaler) 1 puff BID INH ; Start 05/25/18 at 21: 00; Stop 05/25/18 at 21:00; Status DC Diltiazem HCl (Cardizem 24hr Cd) 120 mg DAILY PO Last administered on at 07:49; Start 05/26/18 at 09:00; Stop 06/08/18 at 10:47; Status DC Non-Formulary Medication (Umeclidinium Brm/Vilanterol Tr (Anoro Ellipta 62.5-25 Mcg Inh)) 1 puff BID INH ; Start 05/25/18 at 21:00; Stop 05/25/18 at 21:00; Status DC Albuterol Sulfate (Ventolin) 2.5 mg RTQID NEB Last administered on 06/08/18at 05:10; Start 05/25/18 at 21:00; Stop 06/08/18 at 10:47; Status DC Budesonide (Pulmicort) 0.5 mg RTBID NEB Last administered on 06/07/18at 20:58; Start 05/25/18 at 21:00; Stop 06/08/18 at 10:47; Status DC Albuterol Sulfate (Ventolin) 2.5 mg PRN Q6HRS PRN NEB SHORTNESS OF BREATH Last administered on 05/26/18at 06:15; Start 05/25/18 at 21:00; Stop 06/08/18 at 10: 47; Status DC Influenza Virus Vaccine (Afluria Trivalent [id number] Syringe) 0.5 ml ONCE ONCE VAX IM Last administered on 05/26/18at 15:24; Start 05/26/18 at 09:00; Stop 05/26/18 at 09:01; Status DC Quetiapine Fumarate (SEROquel) 25 mg QHS PO Last administered on 06/07/18at 20: 07; Start 05/27/18 at 21:00; Stop 06/08/18 at 10:47; Status DC Sertraline HCl (Zoloft) 25 mg DAILY PO Last administered on 05/30/18at 08:32; Start 05/28/18 at 09:00; Stop 05/30/18 at 16:11; Status DC Trazodone HCl (Desyrel) 50 mg PRN QHS PRN PO prn insomnia Last administered on 05/29/18at 20:26; Start 05/27/18 at 21:00; Stop 06/08/18 at 10:47; Status DC Sertraline HCl (Zoloft) 50 mg DAILY PO Last administered on 06/03/18at 07:53; Start 05/31/18 at 09:00; Stop 06/03/18 at 16:36; Status DC Mirtazapine (Remeron) 7.5 mg QHS PO Last administered on 06/07/18at 20:07; Start 05/30/18 at 21:00; Stop 06/08/18 at 10:47; Status DC Sertraline HCl (Zoloft) 75 mg DAILY PO Last administered on 06/08/18at 07:49; Start 06/04/18 at 09:00; Stop 06/08/18 at 10:47; Status DC Active Scripts Active Reported Advanced Antacid Liquid (Mag Hydrox/Al Hydrox/Simeth) 355 Ml Oral.susp 15 Ml PO PRN AFTMEALHC PRN Albuterol Sulfate Conc Neb Soln (Albuterol Sulfate) 2.5 Mg/0.5 Ml Vial.neb 2.5 Mg NEB PRN Q6HRS PRN Pulmicort (Budesonide) 0.5 Mg/2 Ml Ampul.neb 0.5 Mg NEB RTBID Analgesic [place] (Methyl Salicylate/Menthol) 28 Gm Oint...g. 1 Tammi TP PRN QID PRN Milk Of Magnesia (Magnesium Hydroxide) 2,400 Mg/10 Ml Oral.susp 2,400 Mg PO PRN QHS PRN Tylenol (Acetaminophen) 325 Mg Tablet 650 Mg PO PRN Q6HRS PRN Trazodone Hcl 50 Mg Tablet 50 Mg PO PRN QHS PRN Zoloft (Sertraline Hcl) 50 Mg Tablet 75 Mg PO DAILY Remeron (Mirtazapine) 15 Mg Tablet 7.5 Mg PO QHS Seroquel (Quetiapine Fumarate) 25 Mg Tablet 25 Mg PO QHS NICODERM CQ 21mg (Nicotine) 1 Each Patch.td24 1 Patch TD DAILY Cartia Xt (Diltiazem Hcl) 120 Mg Cap.er.24h 120 Mg PO DAILY Anoro Ellipta 62.5-25 Mcg Inh (Umeclidinium Brm/Vilanterol Tr) 1 Each Disk.w.dev 1 Puff INH BID I have reviewed the current psychotropics carefully including drug interactions. Risk benefit ratio favors no change other than as noted in my dictated progress note. Diagnosis: Problems: (1) Impulse control disorder (2) Major depressive disorder, recurrent episode (3) Anxiety disorder (4) Dementia in Alzheimer's disease with depression LENCHO LYNN MD Jun 08, 2018 18:46
--- NOTE | 2018-06-08 21:15 | DS ---
DATE OF DISCHARGE: 06/08/2018 DISCHARGE SUMMARY/PSYCHIATRIC PROGRESS NOTE This note covers elements not covered in my initial note, 06/08/18. REASON FOR ADMISSION: Please refer to the admission history for details. Briefly, the patient is a 78-year-old female referred to us on account of worsening symptoms of depression and paranoia. The patient believed people were entering her apartment and leaving clues. She was accusing family of stealing from her. She was increasingly confused, refusing to eat. Because of the paranoia, was having weight loss. She was hearing a tapping sound at her apartment. She had failed outpatient psychiatric interventions. Behaviors deemed dangerous due to her weight loss and referred for inpatient psychiatric stabilization. SIGNIFICANT FINDINGS AND CLINICAL COURSE: Following admission, the patient was seen daily individually by myself from a psychiatric standpoint, medical followup with Dr. Jordan/Dr. Barger. The patient remained depressed, withdrawn, extremely anxious, frequently turning her 2 liters oxygen can up to 10 liters because she felt out of breath consequent to anxiety. O2 sats were unremarkable even at the 2 liters and very satisfactory. Adjustments were made in her psychotropics and she seemed to respond to a combination of Zoloft 75 mg a day, Seroquel 25 mg at bedtime, Remeron 7.5 mg at bedtime. The latter to help with insomnia and anxiety and trazodone 50 mg at bedtime p.r.n., may repeat x 1 for insomnia. CONDITION AT DISCHARGE: Improved prior to discharge, 06/08/2018. REVIEW OF SYSTEMS: Positive for some shortness of breath, some impairment of ambulation. No CV, , GI, eye system symptoms on review. MENTAL STATUS EXAMINATION: The patient is reasonably oriented. Speech; coherent, has some latency. Abstraction fair. Computation; able to do two steps in serial 7s, remember 2/3 objects at 5 minutes. Mood and affect were improved. Psychotic symptoms appear to have subsided. No suicidal or homicidal ideation. LABORATORY DATA: Reviewed. FINAL DIAGNOSES: Major depressive disorder, recurrent with psychotic features, in partial remission; anxiety disorder, unspecified; cognitive disorder, unspecified. Rest unchanged from admission. DISCHARGE MEDICATIONS: Please refer to the MRAD. DISCHARGE INSTRUCTIONS: Outpatient psychiatric and medical followup at the [facility] where she was transferred to [facility]. Time for discharge day management greater than 30 minutes. MAN Ridge LYNN MD DR: Walker JOB#: [id number] / [id number]
--- NOTE | 2018-06-08 23:14 | PN ---
DATE: 06/07/2018 PSYCHIATRIC PROGRESS NOTE This late entry 06/07/2018 covers elements not covered in my initial note. SUBJECTIVE: I met with the patient in the evening in her room. Overall, the patient slept 5-3/4 hours previous evening. She has been isolating in her room, but does come out to groups and activities. She states her mood is better. REVIEW OF SYSTEMS: At times, ambulation slightly impaired with walker; otherwise, ambulates ad roberth. She does have some shortness of breath worsened in the past by her anxiety, but the latter is better. REVIEW OF SYSTEMS: No CV, , GI, eye system symptoms on review. MENTAL STATUS EXAM: The patient is reasonably oriented. Speech is coherent. She is pleasant, verbal as I met with her in her room. We talked about tentative discharge plans for 06/08/2018. Abstraction fair. Computation, was able to do one step serial 7's, remember 2/3 objects at 5 minutes. No suicidal or homicidal ideation. Mood and affect is improved. LABORATORY DATA: Reviewed. IMPRESSION: Major depressive disorder with psychotic features, latter in partial remission; anxiety disorder, unspecified; cognitive disorder, unspecified. PLAN: No change from initial note. Maintain Zoloft 75 mg a day, Remeron 7.5 at bedtime, trazodone p.r.n., Seroquel 25 mg at bedtime. Possible transition to lower level of care, 06/08/2018 and once she is settled in the new facility, starting about 60 days from discharge, the Seroquel could be tapered and stopped. LENCHO LYNN MD DR: MELVIN/jun JOB#: [id number] / [id number]
== END 2018-06-08 10:47 | DRG 57 ==
LOC: ER 16:44 → GEROPSY 18:44
PROVIDERS: ADMIT Psychiatry & Neurology Psychiatry; ATTEND Psychiatry & Neurology Psychiatry
DX: G30.9 Alzheimer's disease, unspecified (principal); F33.3 Major depressive disorder, recurrent, severe with psychotic symptoms; E78.5 Hyperlipidemia, unspecified; F01.50 Vascular dementia, unspecified severity, without behavioral disturbance, psychotic disturbance, mood disturbance, and anxiety; F02.80 Dementia in other diseases classified elsewhere, unspecified severity, without behavioral disturbance, psychotic disturbance, mood disturbance, and anxiety; F09 Unspecified mental disorder due to known physiological condition; F33.41 Major depressive disorder, recurrent, in partial remission; M15.9 Polyosteoarthritis, unspecified; C67.9 Malignant neoplasm of bladder, unspecified; F63.9 Impulse disorder, unspecified; F41.9 Anxiety disorder, unspecified; H40.9 Unspecified glaucoma; G47.00 Insomnia, unspecified; I27.20 Pulmonary hypertension, unspecified; J44.9 Chronic obstructive pulmonary disease, unspecified; I25.10 Atherosclerotic heart disease of native coronary artery without angina pectoris; I10 Essential (primary) hypertension; M06.9 Rheumatoid arthritis, unspecified; Z79.899 Other long term (current) drug therapy; Z82.0 Family history of epilepsy and other diseases of the nervous system; Z85.51 Personal history of malignant neoplasm of bladder; Z88.8 Allergy status to other drugs, medicaments and biological substances
CPT/HCPCS: 36415; 71046; 80053; 80061; 81001; 82306; 82607; 83036; 83540; 83550; 83735; 84436; 84443; 84480; 85025; 85651; 86140; 86592; 87086; 90471; 90756; 93005; 94640; 99407; J7613; J7626; 99285-25; Q2035

== ENCOUNTER 2019-10-13 12:58 | Inpatient (IN) | payer MEDICARE, OTHER ==
[~2019-10-13] VITALS: Ht 162.6 cm; Wt 50.0 kg
[~2019-10-13 12:58] MED LIST: ACET325T9 PO; ALBU2.5V14 NEB; ALBU2.5V8; BUDE0.5A3 NEB; CYAN100031 PO; DILT120C71 PO; LATA2.5D3; MAG355OR17 PO; MAGN24003 PO; MAGN400T5 PO; METH28OI2 TP; MIRT15TA PO; NICO1PAT21 TD; QUET25TA5 PO; SERT50TA PO; TRAZ-120 PO; UMEC1DIS INH
[2019-10-13 13:41] LABS: BASO % 1 % (0-3); EOS # 0.1 x10^3/uL (0.0-0.7); EOS % 2 % (0-3); HEMATOCRIT 47.6 % (36.0-47.0); HEMOGLOBIN 15.6 g/dL (12.0-15.5); LYMPH # 1.2 x10^3/uL (1.0-4.8); LYMPH % 20 % (24-48); MEAN CORPUSCULAR HEMOGLOBIN 32 pg (25-35); MEAN CORPUSCULAR HGB CONC 33 g/dL (31-37); MEAN CORPUSCULAR VOLUME 96 fL (79-100); MONO # 0.3 x10^3/uL (0.0-1.1); MONO % 5 % (0-9); NEUT # 4.5 x10^3uL (1.8-7.7); NEUT % 72 % (31-73); PLATELET COUNT 255 x10^3/uL (140-400); RED BLOOD COUNT 4.94 x10^6/uL (3.50-5.40); RED CELL DISTRIBUTION WIDTH 14.2 % (11.5-14.5); WHITE BLOOD COUNT 6.2 x10^3/uL (4.0-11.0)
--- NOTE | 2019-10-13 13:49 | EKG ---
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
[2019-10-13 14:24] LABS: BARBITURATES NEG (NEG); BENZODIAZEPINES POS (NEG); CANNABINOIDS NEG (NEG); COCAINE NEG (NEG); METHADONE NEG (NEG); OPIATES NEG (NEG); PHENCYCLIDINE NEG (NEG)
[2019-10-13 14:25] LABS: AMPHETAMINE/METHAMPHETAMINE NEG (NEG)
[2019-10-13] MEDS ORDERED: MAGN250T9 PO (14:28)
[2019-10-13] MEDS ORDERED: SERT100T PO (14:28)
[2019-10-13] MEDS ORDERED: CYAN-25 PO (14:28)
[2019-10-13] MEDS ORDERED: VITA400C37 PO (14:28)
[2019-10-13] MEDS ORDERED: OMEG1CAP50 PO (14:28)
[2019-10-13] MEDS ORDERED: METO-239 PO (14:28)
[2019-10-13] MEDS ORDERED: MIRT15TA PO (14:28)
[2019-10-13] MEDS ORDERED: FURO-69 PO (14:28)
[2019-10-13] MEDS ORDERED: AMLO5TAB10 PO (14:28)
[2019-10-13] MEDS ORDERED: MULT-121 PO (14:28)
[2019-10-13 14:32] LABS: COLOR,URINE YELLOW
[2019-10-13 14:33] LABS: BACTERIA,URINE 0 /HPF (0-FEW); BILIRUBIN,URINE NEG (NEG); CLARITY,URINE CLEAR; GLUCOSE,URINE NEG (NEG); HYALINE CASTS, URINE MOD /HPF; NITRITE,URINE NEG (NEG); RBC,URINE 20-40 /HPF (0-2); SQUAMOUS EPITHELIAL CELL,UR FEW /LPF; UROBILINOGEN,URINE 0.2 mg/dL (0.2 mg/dL); WBC,URINE OCC /HPF (0-4)
[2019-10-13] MEDS ORDERED: SIME80TA14 PO (14:41)
[2019-10-13] MEDS ORDERED: ALPR1TAB6 PO (14:41)
[2019-10-13] MEDS ORDERED: ACET500T68 PO (14:41)
[2019-10-13] MEDS ORDERED: BUDE0.5A11 IH (14:41)
[2019-10-13] MEDS ORDERED: MAGN24003 PO (14:41)
[2019-10-13] MEDS ORDERED: MENT118G TP (14:41)
--- NOTE | 2019-10-13 15:22 | PHYS DOC ---
Past History Past Medical History: Anxiety, Arthritis, CAD, Cancer, COPD, Depression, High Cholesterol, Hypertension Past Surgical History: Cancer Surgery, Cholecystectomy, Other Alcohol Use: None Drug Use: None Adult General Chief Complaint Chief Complaint: MEDICAL CLEARANCE HPI HPI Patient is a 79-year-old female who presents with complaint of behavioral disturbance. Patient has been aggressive and having outbursts of anger. Patient is here for medical clearance for [facility]. Patient denies any chest pain or shortness breath. She denies any abdominal pain. She has had no suicidal or homicidal ideations.[] Review of Systems Review of Systems Constitutional: Denies fever or chills [] Respiratory: Denies cough or shortness of breath [] Cardiovascular: Regular rate and rhythm[] GI: Denies abdominal pain, nausea, vomitingor diarrhea [] Integument: Denies rash or skin lesions [] Neurologic: Denies headache, focal weakness or sensory changes [] All other systems were reviewed and found to be within normal limits, except as documented in this note. Allergies Allergies Allergies Coded Allergies Type Severity Reaction Last Updated Verified Iodinated Contrast- Oral and IV Dye Allergy Intermediate 05/26/18 Yes atorvastatin Allergy Intermediate 05/26/18 Yes lisinopril Allergy Intermediate 05/26/18 Yes tramadol Allergy Intermediate 05/26/18 Yes Physical Exam Physical Exam Constitutional: Well developed, well nourished, no acute distress, non-toxic appearance. [] HENT: Normocephalic, atraumatic, bilateral external ears normal, oropharynx moist, no oral exudates, nose normal. [] Eyes: PERRLA, EOMI, conjunctiva normal, no discharge. [] Neck: Normal range of motion, no tenderness, supple. [] Cardiovascular: Regular rate and rhythm[] Lungs & Thorax: Bilateral breath sounds clear to auscultation [] Abdomen: Bowel sounds normal, soft, no tenderness. [] Skin: Warm, dry, no erythema, no rash. [] Extremities: No tenderness, no cyanosis, no clubbing, ROM intact. [] Neurologic: Alert and oriented X 3, no focal deficits noted. [] Current Patient Data Vital Signs Vital Signs Date Time Temp Pulse Resp B/P (MAP) Pulse Ox O2 Delivery O2 Flow Rate FiO2 10/13/19 13:18 97.8 74 18 130/62 (84) 87 Room Air Lab Results Laboratory Tests Test 10/13/19 13:25 10/13/19 13:48 White Blood Count 6.2 x10^3/uL (4.0-11.0) Red Blood Count 4.94 x10^6/uL (3.50-5.40) Hemoglobin 15.6 g/dL (12.0-15.5) H Hematocrit 47.6 % (36.0-47.0) H Mean Corpuscular Volume 96 fL (79-100) Mean Corpuscular Hemoglobin 32 pg (25-35) Mean Corpuscular Hemoglobin Concent 33 g/dL (31-37) Red Cell Distribution Width 14.2 % (11.5-14.5) Platelet Count 255 x10^3/uL (140-400) Neutrophils (%) (Auto) 72 % (31-73) Lymphocytes (%) (Auto) 20 % (24-48) L Monocytes (%) (Auto) 5 % (0-9) Eosinophils (%) (Auto) 2 % (0-3) Basophils (%) (Auto) 1 % (0-3) Neutrophils # (Auto) 4.5 x10^3uL (1.8-7.7) Lymphocytes # (Auto) 1.2 x10^3/uL (1.0-4.8) Monocytes # (Auto) 0.3 x10^3/uL (0.0-1.1) Eosinophils # (Auto) 0.1 x10^3/uL (0.0-0.7) Basophils # (Auto) 0.0 x10^3/uL (0.0-0.2) Ethyl Alcohol Level < 10 mg/dL (0-10) Urine Collection Type Unknown Urine Color Yellow Urine Clarity Clear Urine pH 5.5 Urine Specific [place] 1.020 Urine Protein Trace (NEG-TRACE) Urine Glucose (UA) Neg mg/dL (NEG) Urine Ketones (Stick) Trace mg/dL (NEG) Urine Blood Mod (NEG) Urine Nitrite Neg (NEG) Urine Bilirubin Neg (NEG) Urine Urobilinogen Dipstick 0.2 mg/dL (0.2 mg/dL) Urine Leukocyte Esterase Neg (NEG) Urine RBC 20-40 /HPF (0-2) Urine WBC Occ /HPF (0-4) Urine Squamous Epithelial Cells Few /LPF Urine Bacteria 0 /HPF (0-FEW) Urine Hyaline Casts Mod /HPF Urine Mucus Slight /LPF Urine Opiates Screen Neg (NEG) Urine Methadone Screen Neg (NEG) Urine Barbiturates Neg (NEG) Urine Phencyclidine Screen Neg (NEG) Urine Amphetamine/Methamphetamine Neg (NEG) Urine Benzodiazepines Screen Pos (NEG) Urine Cocaine Screen Neg (NEG) Urine Cannabinoids Screen Neg (NEG) Urine Ethyl Alcohol Neg (NEG) EKG EKG [] Radiology/Procedures Radiology/Procedures [] Course & Med Decision Making Course & Med Decision Making Pertinent Labs and Imaging studies reviewed. (See chart for details) [] Dragon Disclaimer Dragon Disclaimer This electronic medical record was generated, in whole or in part, using a voice recognition dictation system. Departure Departure: Impression: Primary Impression: Dementia with behavioral disturbance Disposition: ADMITTED INPATIENT Admitting Physician: Other (Dr. Jimenez) Condition: STABLE Referrals: PCP,UNKNOWN (PCP) Problem Qualifiers Primary Impression: Dementia with behavioral disturbance Dementia type: unspecified type Qualified Codes: F03.91 - Unspecified dementia with behavioral disturbance ILIANA MOSLEY Jr. DO Oct 13, 2019 15:22
[2019-10-13] MEDS ORDERED: LORazepam 1 MG TABLET ONE (16:16)
[2019-10-13] MEDS ORDERED: LORazepam 1 MG TABLET PO ONE (16:30)
[2019-10-13] MEDS ORDERED: NON FORMULARY ITEM (Magnesium Hydroxide (Milk Of Magnesia) 2,400 MG) PO PRN (18:00)
[2019-10-13] MEDS ORDERED: NON FORMULARY ITEM (Menthol (Biofreeze) 1 APP) TP PRN (18:00)
[2019-10-13] MEDS ORDERED: BUDESONIDE 0.5 MG/2 ML NEBU IH PRN (18:00)
[2019-10-13] MEDS ORDERED: NON FORMULARY ITEM (Albuterol Sulfate (Albuterol Sulfate Conc Neb Soln) 2.5 MG) NEB PRN (18:00)
[2019-10-13] MEDS ORDERED: SIMETHICONE 80 MG TAB.CHEW PO PRN (18:00)
[2019-10-13] MEDS ORDERED: NON FORMULARY ITEM (Alprazolam 1 MG) PO PRN (18:00)
[2019-10-13] MEDS ORDERED: MAGNESIUM HYDROXIDE 2,400 MG/30 ML ORAL.SUSP. PO PRN (18:15)
[2019-10-13] MEDS ORDERED: METHYL SALICYLATE/MENTHOL TOPICAL OINTMENT 57GM TUBE. TP PRN (18:15)
[2019-10-13 18:20] VITALS: BP 126/57
[2019-10-13] MEDS ORDERED: ALBUTEROL SULFATE 2.5 MG/3 ML NEBU. NEB PRN (18:30)
[2019-10-13] MEDS ORDERED: IPRATRPIUM/ALBUTEROL 0.5/2.5MG 3 ML NEBU. NEB SCH (20:00)
[2019-10-13] MEDS: MIRTAZAPINE 15 MG TABLET PO SCH (20:46)
--- NOTE | 2019-10-13 21:21 | PDOC ---
Exam Note: Alejandro Note: Please also refer to the separate dictated note~for this date of service dictated separately. Discussed the patient with Nursing staff reviewed the chart.~Reviewed interim history and current functioning. Reviewed vital signs,~Labs/ Radiology~and current medications noted below. Continue current treatment with the changes noted in the dictated addendum note Assessment: Vital Signs/I&O: Vital Signs Date Time Temp Pulse Resp B/P (MAP) Pulse Ox O2 Delivery O2 Flow Rate FiO2 10/13/19 20:10 96 Nasal Cannula 3.0 10/13/19 18:20 98.6 67 16 126/57 (80) Labs: Laboratory Tests Test 10/13/19 13:25 10/13/19 13:48 White Blood Count 6.2 x10^3/uL (4.0-11.0) Red Blood Count 4.94 x10^6/uL (3.50-5.40) Hemoglobin 15.6 g/dL (12.0-15.5) H Hematocrit 47.6 % (36.0-47.0) H Mean Corpuscular Volume 96 fL (79-100) Mean Corpuscular Hemoglobin 32 pg (25-35) Mean Corpuscular Hemoglobin Concent 33 g/dL (31-37) Red Cell Distribution Width 14.2 % (11.5-14.5) Platelet Count 255 x10^3/uL (140-400) Neutrophils (%) (Auto) 72 % (31-73) Lymphocytes (%) (Auto) 20 % (24-48) L Monocytes (%) (Auto) 5 % (0-9) Eosinophils (%) (Auto) 2 % (0-3) Basophils (%) (Auto) 1 % (0-3) Neutrophils # (Auto) 4.5 x10^3uL (1.8-7.7) Lymphocytes # (Auto) 1.2 x10^3/uL (1.0-4.8) Monocytes # (Auto) 0.3 x10^3/uL (0.0-1.1) Eosinophils # (Auto) 0.1 x10^3/uL (0.0-0.7) Basophils # (Auto) 0.0 x10^3/uL (0.0-0.2) Magnesium Level 1.9 mg/dL (1.8-2.4) Ethyl Alcohol Level < 10 mg/dL (0-10) Urine Collection Type Unknown Urine Color Yellow Urine Clarity Clear Urine pH 5.5 Urine Specific [place] 1.020 Urine Protein Trace (NEG-TRACE) Urine Glucose (UA) Neg mg/dL (NEG) Urine Ketones (Stick) Trace mg/dL (NEG) Urine Blood Mod (NEG) Urine Nitrite Neg (NEG) Urine Bilirubin Neg (NEG) Urine Urobilinogen Dipstick 0.2 mg/dL (0.2 mg/dL) Urine Leukocyte Esterase Neg (NEG) Urine RBC 20-40 /HPF (0-2) Urine WBC Occ /HPF (0-4) Urine Squamous Epithelial Cells Few /LPF Urine Bacteria 0 /HPF (0-FEW) Urine Hyaline Casts Mod /HPF Urine Mucus Slight /LPF Urine Opiates Screen Neg (NEG) Urine Methadone Screen Neg (NEG) Urine Barbiturates Neg (NEG) Urine Phencyclidine Screen Neg (NEG) Urine Amphetamine/Methamphetamine Neg (NEG) Urine Benzodiazepines Screen Pos (NEG) Urine Cocaine Screen Neg (NEG) Urine Cannabinoids Screen Neg (NEG) Urine Ethyl Alcohol Neg (NEG) Current Medications: Meds: Current Medications Medications (Trade) Dose Ordered Sig/Vikram Route PRN Reason Start Time Stop Time Status Last Admin Dose Admin Lorazepam (Ativan) 1 mg 1X ONCE PO 10/13/19 16:30 10/13/19 16:31 DC 10/13/19 16:20 Mirtazapine (Remeron) 15 mg HS PO 10/13/19 21:00 10/13/19 20:46 I have reviewed the current psychotropics carefully including drug interactions. Risk benefit ratio favors no change other than as noted in my dictated progress note. Diagnosis: Problems: (1) Anxiety disorder (2) Major depressive disorder, recurrent episode (3) Dementia, vascular, with delusions (4) Dementia, vascular, with depression (5) Dementia in Alzheimer's disease with delusions (6) Dementia in Alzheimer's disease with depression (7) Impulse control disorder (8) Dementia with behavioral disturbance LENCHO LYNN MD Oct 13, 2019 21:21
[2019-10-13] MEDS: BUDESONIDE 0.5 MG/2 ML NEBU NEB SCH (22:20)
[2019-10-14 05:45] VITALS: BP 160/67
[2019-10-14] MEDS: SERTRALINE 100 MG TABLET. PO SCH (08:33)
[2019-10-14] MEDS: NICOTINE 21MG PATCH. TD SCH (08:33)
[2019-10-14] MEDS: VITAMIN E. 400 UNIT CAPSULE. PO SCH (08:33)
[2019-10-14] MEDS: FUROSEMIDE 20 MG TABLET PO SCH (08:33)
[2019-10-14] MEDS: MAGNESIUM OXIDE 400 MG TABLET PO SCH (08:34)
[2019-10-14] MEDS: OMEGA-3 FATTY ACIDS/FISH OIL 1,000 MG CAPSULE. PO SCH (08:34)
[2019-10-14] MEDS: METOPROLOL SUCC 24HR ER 25 MG TAB.ER.24H. PO SCH (08:34)
[2019-10-14] MEDS: amLODIPine BESYLATE 5 MG TABLET PO SCH (08:34)
[2019-10-14] MEDS: MULTIVITAMIN I-VITE TABLET. PO SCH (08:34)
[2019-10-14] MEDS: CYANOCOBALAMIN (VITAMIN B-12) 1,000 MCG TABLET. PO SCH (08:34)
[2019-10-14] MEDS ORDERED: VITAMIN E ACETATE 400 UNIT PO SCH (09:00)
[2019-10-14] MEDS ORDERED: MULTIVITAMIN PO SCH (09:00)
[2019-10-14] MEDS ORDERED: NON FORMULARY ITEM (Umeclidinium Brm/Vilanterol Tr (Anoro Ellipta 62.5-25 Mcg Inh) 1 PUFF) INH SCH (09:00)
[2019-10-14] MEDS ORDERED: MAGNESIUM OXIDE 250 MG PO SCH (09:00)
[2019-10-14] MEDS: BUDESONIDE 0.5 MG/2 ML NEBU NEB SCH ×2 (10:17→20:00)
[2019-10-14 10:45] LABS: THYROID STIM HORMONE (TSH) 2.884 uIU/mL (0.358-3.740)
[2019-10-14 13:07] LABS: THYROXINE 6.1 ug/dL (4.5-12.0)
[2019-10-14] MEDS: HYDROcodone/APAP 5/325MG 1 TAB TABLET PO PRN (14:17)
[2019-10-14 14:26] LABS: ALBUMIN 3.6 g/dL (3.4-5.0); ALBUMIN/GLOBULIN RATIO 1.1 (1.0-1.7); CALCIUM 9.5 mg/dL (8.5-10.1); CREATININE 0.7 mg/dL (0.6-1.0); GFR 80.5; POTASSIUM 4.4 mmol/L (3.5-5.1); TOTAL BILIRUBIN 0.3 mg/dL (0.2-1.0); TOTAL PROTEIN 6.9 g/dL (6.4-8.2)
--- NOTE | 2019-10-14 15:54 | RAD ---
EXAM: Chest, 2 views. HISTORY: Shortness of breath. COMPARISON: 05/26/2018 FINDINGS: Frontal view of the chest is obtained. There is pulmonary emphysema. There are chronic interstitial changes. No pleural effusion or pneumothorax is seen. There are calcified granulomas. There is a stable cardiac silhouette. IMPRESSION: Emphysema. No acute pulmonary finding. Electronically signed by: Niki Holbrook MD (10/14/2019 3:52 PM) [facility]
--- NOTE | 2019-10-14 15:55 | RAD ---
EXAM: Lumbar spine, 4 views. HISTORY: Pain. COMPARISON: None. FINDINGS: 4 views of the lumbar spine are obtained. There is grade 1 anterolisthesis of L4 and L5. There is degenerative endplate remodeling at all levels. There is disc space narrowing and facet arthropathy predominantly at L5-S1. No fracture is seen. There are calcifications and clips. There are vascular calcifications. IMPRESSION: 1. Multilevel degenerative change, predominantly at the lumbosacral junction. 2. Grade 1 anterolisthesis of L4 and L5. Electronically signed by: Niki Holbrook MD (10/14/2019 3:53 PM) [facility]
[2019-10-14 15:56] VITALS: BP 112/57
[2019-10-14] MEDS: MIRTAZAPINE 15 MG TABLET PO SCH ×2 (19:24→21:00)
[2019-10-14] MEDS: ACETAMINOPHEN 500 MG TABLET PO PRN (19:24)
[2019-10-14] MEDS: QUEtiapine 25 MG TABLET. PO SCH (21:00)
--- NOTE | 2019-10-14 22:00 | PDOC ---
Exam Note: Alejandro Note: Please also refer to the separate dictated note~for this date of service dictated separately.~Patient seen individually. Discussed the patient with Nursing staff reviewed the chart.~Reviewed interim history and current functioning. Reviewed vital signs,~Labs/ Radiology~and current medications noted below. Continue current treatment with the changes noted in the dictated addendum note Assessment: Vital Signs/I&O: Vital Signs Date Time Temp Pulse Resp B/P (MAP) Pulse Ox O2 Delivery O2 Flow Rate FiO2 10/14/19 15:56 97.4 75 18 112/57 (75) 94 10/14/19 10:18 Nasal Cannula 3.0 I & O 10/13/19 10/13/19 10/14/19 15:00 23:00 07:00 Intake Total 360 ml Balance 360 ml Current Medications: Meds: Current Medications Medications (Trade) Dose Ordered Sig/Vikram Route PRN Reason Start Time Stop Time Status Last Admin Dose Admin Nicotine (Nicoderm Cq 21mg) 1 patch DAILY TD 10/14/19 09:00 10/14/19 08:33 Amlodipine Besylate (Norvasc) 5 mg DAILY PO 10/14/19 09:00 10/14/19 08:34 Cyanocobalamin (Vitamin B-12) 1,000 mcg DAILY PO 10/14/19 09:00 10/14/19 08:34 Diltiazem HCl (Cardizem 24hr Cd) 120 mg DAILY PO 10/14/19 09:00 10/14/19 08:34 Furosemide (Lasix) 20 mg DAILY PO 10/14/19 09:00 10/14/19 08:33 Metoprolol Succinate (Toprol Xl) 25 mg DAILY PO 10/14/19 09:00 10/14/19 08:34 Fish Oil (Fish Oil) 1,000 mg DAILY PO 10/14/19 09:00 10/14/19 08:34 Sertraline HCl (Zoloft) 100 mg DAILY PO 10/14/19 09:00 10/14/19 08:33 Multivitamins/ Minerals (I-Nhan) 1 tab DAILY PO 10/14/19 09:00 10/14/19 08:34 Vitamin E (Vitamin E.) 400 unit DAILY PO 10/14/19 09:00 10/14/19 08:33 Magnesium Oxide (Magnesium Oxide) 400 mg DAILY PO 10/14/19 09:00 10/14/19 08:34 Acetaminophen/ Hydrocodone Bitart (Lortab 5/325) 1 tab PRN Q6HRS PRN PO PAIN 10/14/19 14:15 10/14/19 14:17 I have reviewed the current psychotropics carefully including drug interactions. Risk benefit ratio favors no change other than as noted in my dictated progress note. Diagnosis: Problems: (1) Anxiety disorder (2) Major depressive disorder, recurrent episode (3) Dementia, vascular, with delusions (4) Dementia, vascular, with depression (5) Dementia in Alzheimer's disease with delusions (6) Dementia in Alzheimer's disease with depression (7) Impulse control disorder (8) Dementia with behavioral disturbance LENCHO LYNN MD Oct 14, 2019 22:00
--- NOTE | 2019-10-14 22:01 | HP ---
ADMIT DATE: 10/13/2019 PSYCHIATRIC ADMISSION HISTORY/EVALUATION This late entry 10/13/2019 covers elements not covered in my initial note. SUBJECTIVE: I met with the patient evening of 10/13/2019, previously discussed with Linda Coates after we received a referral from Dr. Ann, her primary care physician on account of worsening agitation, being verbally abusive, poor intake of meals while she was living at [facility] in [place]. She has been increasingly anxious to a point where she could not be involved in the activities at the facility and with her meals. She has been locking staff out of the room. Adjustments have been made in her psychotropics by the nurse practitioner including using Xanax p.r.n. b.i.d., increase of Remeron, providing room trays. She has been paranoid, believes staff are stealing from her, calling 911 repeatedly. She has failed outpatient psychiatric interventions. She has been admitted here in the past with a diagnosis of major depressive disorder with psychotic features and mild cognitive impairment. She had been stable over the past 2 years since her last admission, but significantly worse over the past several weeks and failure of outpatient treatment resulting in this referral. CHIEF COMPLAINT: "Yes, I get anxious." Per nursing report, the patient repeatedly takes her oxygen off, the O2 sats dropped into the 80s and her behaviors seemed to worsen. Nursing staff are targeting making sure she keeps her oxygen in place. HISTORY OF PRESENT ILLNESS: The patient has a long history of major depressive disorder with psychotic features. She has been stable for some time, but recently getting much worse, paranoid, depressed, psychotic, more confused, forgetful and removing her oxygen only complicates this. She has had a history of mood swings. No clear history of bipolar disorder. No suicidal or homicidal ideation. PAST PSYCHIATRIC HISTORY: As above. MEDICAL HISTORY: Positive for hypertension, COPD, hyperlipidemia, history of CA bladder. She is a smoker, history of rheumatoid arthritis, glaucoma. Takes medications whole. Ambulates with walker, wheelchair, remains on O2 supplements. CODE STATUS: Full code. ALLERGIES: LIPITOR, IODINE, TRAMADOL, LISINOPRIL. CURRENT PSYCHOTROPICS: Remeron 15 mg at bedtime, Zoloft 100 mg a day, Xanax 0.25 mg b.i.d. p.r.n. FAMILY HISTORY: Not contributory. SOCIAL HISTORY: No history of alcohol, drug abuse, physical, sexual or elder abuse history is noted. She is not known to be a perpetrator. REACTION TO HOSPITALIZATION: The patient accepting of this. ASSETS: Supportive, living at the facility, supportive family. MENTAL STATUS EXAMINATION: The patient was seen individually evening of 10/13/2019. She was aware that she was admitted earlier in the day and came from the facility, but she was unaware of the name of the facility. She knew the year was 2019. The president was president Shanelle, was unaware of the month or the date. She is anxious, restless, still somewhat depressed, paranoid. Attention span short. Language function intact. Intellect average. Insight limited, judgment marginal. Mood and affect remains anxious, labile. Short term memory is impaired. LABORATORY DATA: Reviewed. IMPRESSION: Major depressive disorder, recurrent with psychotic features, mild cognitive impairment versus major neurocognitive disorder, Alzheimer, vascular with delusion, depression; anxiety disorder, unspecified; impulse control disorder, unspecified. Rest as above. PLAN: Admit to Geropsychiatry Unit at [facility]. I will see the patient daily individually from a psychiatric standpoint. Medical followup per Dr. Jordan. Continue the patient on her current psychotropics. Observe baseline, consider adding Seroquel as an atypical antipsychotic and to augment the Zoloft. We will make further decisions post baseline assessment. Estimated length of stay 10-12 days. DISCHARGE PLANS: Back to the longterm when stable. In fact, she would be returning back to [facility] when stable. MAN Ridge LYNN MD DR: MELVIN/jnu JOB#: [id number] / [id number]
--- NOTE | 2019-10-15 01:30 | CONS ---
DATE OF CONSULTATION: REASON FOR CONSULTATION: Medical management. HISTORY OF PRESENT ILLNESS: The patient is an 79-year-old female patient, a resident at [facility], who was admitted on account of worsening agitation, verbally abusive, refusing care, not eating well, anxious, paranoid, all this in a background of major depressive disorder. PAST MEDICAL HISTORY: Significant for hyperlipidemia, hypertension, COPD, bladder cancer, rheumatoid arthritis, glaucoma, and nicotine dependence. PAST SURGICAL HISTORY: Significant for appendectomy, multiple back surgeries and bladder surgeries for bladder cancer. ALLERGIES: SHE IS ALLERGIC TO IODINATED CONTRAST, ORAL AND IV DYE, ATORVASTATIN, LISINOPRIL, AND TRAMADOL. FAMILY HISTORY: Not contributory. SOCIAL HISTORY: She is , has 2 grown daughters. She continued to smoke, does not drink alcohol. MEDICATIONS: She is currently on following medications: She is on Anoro Ellipta 1 puff once a day, albuterol sulfate 2.5 mg in 0.5 mL by nebulizer every 4 hours, omega-3 fatty acid 1000 mg once a day, metoprolol succinate 25 mg daily, amlodipine besylate 5 mg once a day, diltiazem 120 mg once a day, acetaminophen 1000 mg every 6 hours, mirtazapine 15 mg at bedtime, sertraline 100 mg once a day, alprazolam 1 mg twice a day as needed, furosemide 20 mg once a day, Pulmicort 0.5 mg in 3 mL by nebulizer twice a day, magnesium oxide 250 mg once a day, simethicone 80 mg 4 times a day as needed, milk of magnesia 30 mL p.o. daily p.r.n. for constipation, Menthol for Biofreeze 1 application topically 4 times a day as needed, cyanocobalamin 1000 mcg once a day, vitamin E 400 units p.o. daily, multivitamin 1 tablet once a day. REVIEW OF SYSTEMS: As per history of present illness. PHYSICAL EXAMINATION: GENERAL: When I examined her, the patient looked well and was clearly in no apparent respiratory distress. No pallor, jaundice, cyanosis or thyromegaly. No jugular venous distention. Mild bilateral ankle edema. She is cachectic with body mass index of 18.9 kilograms square meter. VITAL SIGNS: Her heart rate was 88, blood pressure 160/67, temperature was 97.8, respiratory rate was 22 and oxygen saturation was 96% on 3 liters of oxygen, she desaturates down to 81% on room air. HEAD, EYES, EARS, NOSE AND THROAT: Showed normocephalic, atraumatic. NECK: Supple. HEART: Showed normal first and second heart sounds. No gallop or murmur. CHEST: Shows central trachea, equally reduced expansion, reduced air entry, vesicular breath sounds. I could not really appreciate any crepitation or rhonchi. ABDOMEN: Scaphoid, soft, nontender. NEUROLOGIC: She is awake, alert, responding appropriately. All cranial nerves intact. EXTREMITIES: She moves extremities without difficulty. LABORATORY DATA: Her lab work showed her white cell count was 6200, hemoglobin 15, hematocrit 47, MCV 96, and platelets of 155,000 with normal manual differential. Her serum iron, TIBC and iron saturation are all normal. Her TSH, total T4 and total T3 are all normal. Her urinalysis was essentially unremarkable. In fact, there is a moderate amount of blood and her toxic screen was positive for benzodiazepine. ASSESSMENT AND PLAN: In summary, this is an 79-year-old who was admitted with increasing agitation, verbally abusive, refusing care, not eating well, anxious, paranoid. She is complaining of pain in her left lower extremity. She has a history of back surgery before. She also has history of bladder cancer. My plan is to check obviously the kidney function and other enzymes. We will check x-ray of her lumbar spine and chest x-ray and decide the further management accordingly. She seemed to be extremely cachectic ____ air entry is very poor. LESTER FELICIANO MD DR: DIXIE/jun JOB#: [id number] / [id number]
[2019-10-15 06:27] VITALS: BP 177/68
[2019-10-15] MEDS: SERTRALINE 100 MG TABLET. PO SCH (07:53)
[2019-10-15] MEDS: amLODIPine BESYLATE 5 MG TABLET PO SCH (07:54)
[2019-10-15] MEDS: CYANOCOBALAMIN (VITAMIN B-12) 1,000 MCG TABLET. PO SCH (07:55)
[2019-10-15] MEDS: METOPROLOL SUCC 24HR ER 25 MG TAB.ER.24H. PO SCH (07:55)
[2019-10-15] MEDS: VITAMIN E. 400 UNIT CAPSULE. PO SCH (07:55)
[2019-10-15] MEDS: MAGNESIUM OXIDE 400 MG TABLET PO SCH (07:55)
[2019-10-15] MEDS: MULTIVITAMIN I-VITE TABLET. PO SCH (07:56)
[2019-10-15] MEDS: FUROSEMIDE 20 MG TABLET PO SCH (07:56)
[2019-10-15] MEDS: OMEGA-3 FATTY ACIDS/FISH OIL 1,000 MG CAPSULE. PO SCH (07:56)
[2019-10-15] MEDS: ALPRAZolam 0.5 MG TABLET PO PRN (07:57)
[2019-10-15] MEDS: NICOTINE 21MG PATCH. TD SCH (07:58)
[2019-10-15] MEDS: hydrOXYzine HCL 25 MG TABLET PO PRN (09:38)
[2019-10-15] MEDS: BUDESONIDE 0.5 MG/2 ML NEBU NEB SCH ×2 (10:27→21:26)
[2019-10-15 15:58] VITALS: BP 127/53
[2019-10-15] MEDS: QUEtiapine 25 MG TABLET. PO SCH (20:15)
[2019-10-15] MEDS: MIRTAZAPINE 15 MG TABLET PO SCH (20:15)
--- NOTE | 2019-10-15 21:17 | PN ---
DATE: 10/14/2019 PSYCHIATRIC PROGRESS NOTE. This late entry of 10/14/2019 covers the elements not covered in my initial note. SUBJECTIVE: I met with the patient evening of 10/14/2019. Per RERE Hamilton, the patient has done little better during the day on 10/14/2019. Oriented, anxious, worried about one of the other demented patients on the unit, refused her Remeron, slept 7-1/4 hours. REVIEW OF SYSTEMS: Shortness of breath, on O2 supplements, she frequently removes them; agitation; confusion worsens thereafter. Ambulation impaired with walker. No CV, , eye system symptoms on review. MENTAL STATUS EXAM: Oriented to herself, at times situation. Speech has some latency, coherent. Abstraction fair, computation impaired, language function intact, attention span short. Mood and affect remains labile, depressed. Short-term memory deficits are evident. LABORATORY DATA: Reviewed. IMPRESSION: Major depressive disorder with psychotic features, mild cognitive impairment versus major neurocognitive disorder, Alzheimer's, vascular with delusion, depression. Rest unchanged. PLAN: Continue Remeron 15 mg at bedtime, Zoloft 100 mg a day, start Seroquel 25 mg at bedtime to augment the Zoloft as an antidepressant and also help with the sleep and anxiety. Addressed this with the patient. She is anxious, restless as I met with her. Make further changes as clinically indicated. MAN Ridge LYNN MD DR: MELVIN/jun JOB#: [id number] / [id number]
--- NOTE | 2019-10-15 21:39 | PDOC ---
Exam Note: Alejandro Note: Please also refer to the separate dictated note~for this date of service dictated separately.~Patient seen individually. Discussed the patient with Nursing staff reviewed the chart.~Reviewed interim history and current functioning. Reviewed vital signs,~Labs/ Radiology~and current medications noted below. Continue current treatment with the changes noted in the dictated addendum note Assessment: Vital Signs/I&O: Vital Signs Date Time Temp Pulse Resp B/P (MAP) Pulse Ox O2 Delivery O2 Flow Rate FiO2 10/15/19 20:25 93 Nasal Cannula 3.0 10/15/19 15:58 97.6 71 18 127/53 (77) I & O 10/14/19 10/14/19 10/15/19 15:00 23:00 07:00 Intake Total 360 ml 480 ml Balance 360 ml 480 ml Current Medications: Meds: Current Medications Medications (Trade) Dose Ordered Sig/Vikram Route PRN Reason Start Time Stop Time Status Last Admin Dose Admin Hydroxyzine HCl (Atarax) 25 mg PRN Q2HR PRN PO ANXIETY / AGITATION 10/15/19 09:30 10/15/19 09:38 I have reviewed the current psychotropics carefully including drug interactions. Risk benefit ratio favors no change other than as noted in my dictated progress note. Diagnosis: Problems: (1) Anxiety disorder (2) Major depressive disorder, recurrent episode (3) Dementia, vascular, with delusions (4) Dementia, vascular, with depression (5) Dementia in Alzheimer's disease with delusions (6) Dementia in Alzheimer's disease with depression (7) Impulse control disorder (8) Dementia with behavioral disturbance LENCHO LYNN MD Oct 15, 2019 21:39
[2019-10-15] MEDS ORDERED: traZODone 50 MG TABLET. PO PRN (22:00)
--- NOTE | 2019-10-16 04:04 | RAD ---
CT abdomen pelvis without contrast dated 10/15/2019. No comparison available. Clinical data indication: Blood in urine. History of bladder cancer. TECHNIQUE: Contiguous axial imaging the M pelvis performed without the administration of IV or oral contrast. One or more of the following individualized dose reduction techniques were utilized for this examination: 1. Automated exposure control 2. Adjustment of the mA and/or kV according to patient size 3. Use of iterative reconstruction technique. FINDINGS: Limited images of lung bases show mild emphysema. There is a calcified granuloma in the left lower lobe. Prominent linear markings at both lung bases, likely scar or atelectasis. Heart size is upper limits of normal. No pleural or pericardial effusion. Solid abdominal viscera not well evaluated in the absence of contrast material. No apparent attenuation abnormality of the liver. The gallbladder is surgically absent. No biliary ductal dilatation. Spleen is normal in size. There are scattered splenic granuloma. Pancreas is unremarkable. There is a 2.1 cm low-density nodule of the right adrenal gland with Hounsfield value of -1, likely adrenal adenoma. Left adrenal gland unremarkable. Kidneys are symmetric in size and attenuation. No calcific renal or ureteral stone. No hydronephrosis. Unopacified GI tract normal in caliber and contour. No focal bowel wall thickening. Scattered diverticula throughout the colon. No paracolonic inflammatory changes. No free fluid or lymphadenopathy. The appendix is not clearly identified. Images the pelvis show nondistended urinary bladder. No calcific bladder stone. No significant bladder wall thickening. Uterus is atrophic. No free fluid or lymphadenopathy. There are scattered diverticula within the distal colon. Moderate amount stool distending the rectal vault. Bone windows show no acute findings. Multilevel spondylosis. IMPRESSION: 1. No acute abnormality of abdomen or pelvis. No renal stone or hydronephrosis. 2. Diverticulosis with no evidence of acute diverticulitis. 3. No apparent bladder wall thickening or bladder mucosal lesion. There is persistent hematuria, cystoscopy to better evaluate. 4. Fecal impaction at the rectal vault. 5. Small right adrenal adenoma. Electronically signed by: Andi Lyman MD (10/16/2019 4:01 AM) [id number]
[2019-10-16 05:41] VITALS: BP 172/75
[2019-10-16] MEDS: amLODIPine BESYLATE 5 MG TABLET PO SCH (08:28)
[2019-10-16] MEDS: MULTIVITAMIN I-VITE TABLET. PO SCH (08:28)
[2019-10-16] MEDS: CYANOCOBALAMIN (VITAMIN B-12) 1,000 MCG TABLET. PO SCH (08:28)
[2019-10-16] MEDS: OMEGA-3 FATTY ACIDS/FISH OIL 1,000 MG CAPSULE. PO SCH (08:28)
[2019-10-16] MEDS: VITAMIN E. 400 UNIT CAPSULE. PO SCH (08:28)
[2019-10-16] MEDS: SERTRALINE 100 MG TABLET. PO SCH (08:29)
[2019-10-16] MEDS: FUROSEMIDE 20 MG TABLET PO SCH (08:29)
[2019-10-16] MEDS: METOPROLOL SUCC 24HR ER 25 MG TAB.ER.24H. PO SCH (08:29)
[2019-10-16] MEDS: MAGNESIUM OXIDE 400 MG TABLET PO SCH (08:29)
[2019-10-16] MEDS: NICOTINE 21MG PATCH. TD SCH (08:30)
[2019-10-16] MEDS: BUDESONIDE 0.5 MG/2 ML NEBU NEB SCH (10:33)
[2019-10-16 15:59] VITALS: BP 128/54
[2019-10-16] MEDS: MIRTAZAPINE 15 MG TABLET PO SCH (19:46)
[2019-10-16] MEDS: QUEtiapine 25 MG TABLET. PO SCH (19:46)
--- NOTE | 2019-10-16 21:20 | PDOC ---
Exam Note: Alejandro Note: Please also refer to the separate dictated note~for this date of service dictated separately.~Patient seen individually. Discussed the patient with Nursing staff reviewed the chart.~Reviewed interim history and current functioning. Reviewed vital signs,~Labs/ Radiology~and current medications noted below. Continue current treatment with the changes noted in the dictated addendum note Assessment: Vital Signs/I&O: Vital Signs Date Time Temp Pulse Resp B/P (MAP) Pulse Ox O2 Delivery O2 Flow Rate FiO2 10/16/19 15:59 97.1 78 16 128/54 (78) 93 2.0 10/16/19 10:33 Nasal Cannula I & O 10/15/19 10/15/19 10/16/19 15:00 23:00 07:00 Intake Total 480 ml 480 ml 240 ml Balance 480 ml 480 ml 240 ml Current Medications: I have reviewed the current psychotropics carefully including drug interactions. Risk benefit ratio favors no change other than as noted in my dictated progress note. Diagnosis: Problems: (1) Anxiety disorder (2) Major depressive disorder, recurrent episode (3) Dementia, vascular, with delusions (4) Dementia, vascular, with depression (5) Dementia in Alzheimer's disease with delusions (6) Dementia in Alzheimer's disease with depression (7) Impulse control disorder (8) Dementia with behavioral disturbance LENCHO LYNN MD Oct 16, 2019 21:20
[2019-10-16 23:07] LABS: HEMOGLOBIN A1C 5.4 % (4.8-5.6)
--- NOTE | 2019-10-16 23:47 | PN ---
DATE: 10/15/2019 This late entry 10/15/2019 covers elements not covered in my initial note. SUBJECTIVE: I met with the patient evening of 10/15/2019. Per RERE Craft, the patient has been on one-on-one status, very disorganized, up and down out of her chair, slept 3-1/2 hours previous night. We will add trazodone 50 mg at bedtime p.r.n., may repeat x [address] Jordan has ordered a CT abdomen. O2 sats drop if she takes it out even briefly, otherwise in the 90s on 3 liters. REVIEW OF SYSTEMS: Shortness of breath, on O2 supplements. Impaired ambulation, quite confused as I met with her in the evening. No CV, , eye, ENT system symptoms on review. Reliability poor. MENTAL STATUS EXAM: Oriented to herself. Insight, judgment, recent and remote memory, attention, concentration, fund of knowledge poor, consistent with her diagnoses. IMPRESSION: Major depressive disorder with psychotic features, delirium due to general medical condition; anxiety disorder, unspecified. Rest unchanged. PLAN: Add the trazodone. Continue Remeron, Seroquel along with Zoloft and Xanax p.r.n. Adjust further as clinically indicated. LENCHO LYNN MD DR: MELVIN/jun JOB#: [id number] / [id number]
[2019-10-17] MEDS: BUDESONIDE 0.5 MG/2 ML NEBU NEB SCH ×3 (00:46→21:11)
[2019-10-17 05:51] VITALS: BP 125/62
[2019-10-17] MEDS: HYDROcodone/APAP 5/325MG 1 TAB TABLET PO PRN (06:20)
[2019-10-17] MEDS: MAGNESIUM OXIDE 400 MG TABLET PO SCH (08:11)
[2019-10-17] MEDS: VITAMIN E. 400 UNIT CAPSULE. PO SCH (08:11)
[2019-10-17] MEDS: SERTRALINE 100 MG TABLET. PO SCH (08:12)
[2019-10-17] MEDS: CYANOCOBALAMIN (VITAMIN B-12) 1,000 MCG TABLET. PO SCH (08:12)
[2019-10-17] MEDS: FUROSEMIDE 20 MG TABLET PO SCH (08:12)
[2019-10-17] MEDS: METOPROLOL SUCC 24HR ER 25 MG TAB.ER.24H. PO SCH (08:12)
[2019-10-17] MEDS: amLODIPine BESYLATE 5 MG TABLET PO SCH (08:13)
[2019-10-17] MEDS: MULTIVITAMIN I-VITE TABLET. PO SCH (08:13)
[2019-10-17] MEDS: OMEGA-3 FATTY ACIDS/FISH OIL 1,000 MG CAPSULE. PO SCH (08:13)
[2019-10-17] MEDS: NICOTINE 21MG PATCH. TD SCH (08:13)
[2019-10-17] MEDS: hydrOXYzine HCL 25 MG TABLET PO PRN (15:35)
[2019-10-17 16:22] VITALS: BP 166/72
[2019-10-17] MEDS ORDERED: ALBUTEROL SULFATE 2.5 MG/3 ML NEBU. NEB SCH (18:00)
--- NOTE | 2019-10-17 19:39 | PN ---
DATE: 10/16/2019 PSYCHIATRIC PROGRESS NOTE This late entry 10/16/2019 covers elements not covered in my initial note. SUBJECTIVE: I met with the patient evening of 10/16/2019. Per RERE Faulkner, the patient slept 6 hours previous night. She has been restless, somewhat disorganized. Previous evening, yelling out, obsessed about her locker and belongings. Nevertheless, during the day on 10/16/2019, she is calmer, less agitated. REVIEW OF SYSTEMS: Ambulation impaired, in wheelchair, shortness of breath on 3 liters oxygen. No CV, , eye system symptoms on review. Reliability varies. MENTAL STATUS EXAM: Oriented to herself and situation. Speech has some latency, coherent. Abstraction fair, computation impaired, language function intact, attention span short. Mood and affect still remains anxious, labile, but improved. LABORATORY DATA: Reviewed. IMPRESSION: Unchanged from initial note. PLAN: No change from initial note. LENCHO LYNN MD DR: MELVIN/jun JOB#: [id number] / [id number]
[2019-10-17] MEDS: MIRTAZAPINE 15 MG TABLET PO SCH (19:40)
[2019-10-17] MEDS: ACETAMINOPHEN 500 MG TABLET PO PRN (20:04)
--- NOTE | 2019-10-17 21:17 | PDOC ---
Exam Note: Alejandro Note: Please also refer to the separate dictated note~for this date of service dictated separately.~Patient seen individually. Discussed the patient with Nursing staff reviewed the chart.~Reviewed interim history and current functioning. Reviewed vital signs,~Labs/ Radiology~and current medications noted below. Continue current treatment with the changes noted in the dictated addendum note Assessment: Vital Signs/I&O: Vital Signs Date Time Temp Pulse Resp B/P (MAP) Pulse Ox O2 Delivery O2 Flow Rate FiO2 10/17/19 21:11 100 Nasal Cannula 3.0 10/17/19 16:22 97.6 78 16 166/72 (103) I & O 10/16/19 10/16/19 10/17/19 15:00 23:00 07:00 Intake Total 960 ml 120 ml Balance 960 ml 120 ml Current Medications: I have reviewed the current psychotropics carefully including drug interactions. Risk benefit ratio favors no change other than as noted in my dictated progress note. Diagnosis: Problems: (1) Anxiety disorder (2) Major depressive disorder, recurrent episode (3) Dementia, vascular, with delusions (4) Dementia, vascular, with depression (5) Dementia in Alzheimer's disease with delusions (6) Dementia in Alzheimer's disease with depression (7) Impulse control disorder (8) Dementia with behavioral disturbance LENCHO LYNN MD Oct 17, 2019 21:17
[2019-10-18 05:39] VITALS: BP 154/69
[2019-10-18] MEDS ORDERED: ARIPiprazole 5 MG TABLET PO SCH (09:00)
[2019-10-18] MEDS: OMEGA-3 FATTY ACIDS/FISH OIL 1,000 MG CAPSULE. PO SCH (09:06)
[2019-10-18] MEDS: VITAMIN E. 400 UNIT CAPSULE. PO SCH (09:06)
[2019-10-18] MEDS: amLODIPine BESYLATE 5 MG TABLET PO SCH (09:07)
[2019-10-18] MEDS: FUROSEMIDE 20 MG TABLET PO SCH (09:07)
[2019-10-18] MEDS: METOPROLOL SUCC 24HR ER 25 MG TAB.ER.24H. PO SCH (09:07)
[2019-10-18] MEDS: MULTIVITAMIN I-VITE TABLET. PO SCH (09:07)
[2019-10-18] MEDS: SERTRALINE 100 MG TABLET. PO SCH (09:07)
[2019-10-18] MEDS: CYANOCOBALAMIN (VITAMIN B-12) 1,000 MCG TABLET. PO SCH (09:07)
[2019-10-18] MEDS: MAGNESIUM OXIDE 400 MG TABLET PO SCH (09:08)
[2019-10-18] MEDS: NICOTINE 21MG PATCH. TD SCH (09:08)
[2019-10-18] MEDS: BUDESONIDE 0.5 MG/2 ML NEBU NEB SCH ×2 (10:18→21:12)
[2019-10-18] MEDS: ALPRAZolam 0.5 MG TABLET PO PRN (14:35)
[2019-10-18 16:10] VITALS: BP 118/60
[2019-10-18 18:38] LABS: BILIRUBIN,URINE NEG (NEG); CLARITY,URINE CLEAR; COLOR,URINE YELLOW; GLUCOSE,URINE NEG (NEG)
[2019-10-18 18:39] LABS: BACTERIA,URINE 0 /HPF (0-FEW); NITRITE,URINE NEG (NEG); RBC,URINE OCC /HPF (0-2); SQUAMOUS EPITHELIAL CELL,UR OCC /LPF; UROBILINOGEN,URINE 0.2 mg/dL (0.2 mg/dL); WBC,URINE OCC /HPF (0-4)
--- NOTE | 2019-10-18 19:07 | RAD ---
Examination: 2 views of the bilateral hip joints with frontal view of the pelvis HISTORY: History of fall, bilateral knee pain COMPARISON: None available FINDINGS: Examination very limited osseous demineralization. Moderate joint space loss identified in the bilateral hip joints likely degenerative changes. IMPRESSION: 1. No acute osseous findings. 2. Moderate degenerative changes bilateral hip joints. Electronically signed by: Rajinder Cast MD (10/18/2019 7:04 PM) [id number]
[2019-10-18] MEDS: MIRTAZAPINE 15 MG TABLET PO SCH ×2 (20:54→23:43)
--- NOTE | 2019-10-18 21:18 | PDOC ---
Exam Note: Alejandro Note: Please also refer to the separate dictated note~for this date of service dictated separately.~Patient seen individually. Discussed the patient with Nursing staff reviewed the chart.~Reviewed interim history and current functioning. Reviewed vital signs,~Labs/ Radiology~and current medications noted below. Continue current treatment with the changes noted in the dictated addendum note Assessment: Vital Signs/I&O: Vital Signs Date Time Temp Pulse Resp B/P (MAP) Pulse Ox O2 Delivery O2 Flow Rate FiO2 10/18/19 16:10 98.2 72 18 118/60 (79) 92 2.0 10/18/19 10:20 Nasal Cannula I & O 10/17/19 10/17/19 10/18/19 15:00 23:00 07:00 Intake Total 840 ml 360 ml 240 ml Balance 840 ml 360 ml 240 ml Labs: Laboratory Tests Test 10/18/19 18:05 Urine Collection Type Void Urine Color Yellow Urine Clarity Clear Urine pH 6.0 Urine Specific [place] 1.025 Urine Protein Neg (NEG-TRACE) Urine Glucose (UA) Neg mg/dL (NEG) Urine Ketones (Stick) Neg mg/dL (NEG) Urine Blood Neg (NEG) Urine Nitrite Neg (NEG) Urine Bilirubin Neg (NEG) Urine Urobilinogen Dipstick 0.2 mg/dL (0.2 mg/dL) Urine Leukocyte Esterase Neg (NEG) Urine RBC Occ /HPF (0-2) Urine WBC Occ /HPF (0-4) Urine Squamous Epithelial Cells Occ /LPF Urine Bacteria 0 /HPF (0-FEW) Urine Mucus Slight /LPF Current Medications: Meds: Current Medications Medications (Trade) Dose Ordered Sig/Vikram Route PRN Reason Start Time Stop Time Status Last Admin Dose Admin Aripiprazole (Abilify) 5 mg DAILY PO 10/18/19 09:00 10/18/19 16:47 DC 10/18/19 09:08 I have reviewed the current psychotropics carefully including drug interactions. Risk benefit ratio favors no change other than as noted in my dictated progress note. Diagnosis: Problems: (1) Anxiety disorder (2) Major depressive disorder, recurrent episode (3) Dementia, vascular, with delusions (4) Dementia, vascular, with depression (5) Dementia in Alzheimer's disease with delusions (6) Dementia in Alzheimer's disease with depression (7) Impulse control disorder (8) Dementia with behavioral disturbance LENCHO LYNN MD Oct 18, 2019 21:17
--- NOTE | 2019-10-18 21:31 | PN ---
DATE: 10/17/2019 PSYCHIATRIC PROGRESS NOTE This late entry 10/17/2019 covers the elements not covered in my initial note. SUBJECTIVE: I met with the patient in the evening of 10/17/2019. Per RERE Faulkner, the patient slept 6 hours previous night. Previous night, she was restless, refused her Seroquel. Her daughter has indicated that the patient did not respond to Seroquel well in the past with increased crying and some sedation and we will change it to Abilify 5 mg a day as a mood stabilizer. REVIEW OF SYSTEMS: Shortness of breath on 3 liters oxygen, impaired ambulation, with walker/wheelchair. No CV, , GI, eye system symptoms on review. MENTAL STATUS EXAM: Oriented to herself and situation. Speech has some latency, coherent. Abstraction fair, computation impaired, language function intact, attention span short. Mood and affect, lability showing some improvement. LABORATORY DATA: Reviewed. IMPRESSION: Unchanged from initial note. PLAN: No change from initial note. LENCHO LYNN MD DR: MELVIN/jun JOB#: [id number] / [id number]
[2019-10-18] MEDS: ALBUTEROL SULFATE 2.5 MG/3 ML NEBU. NEB PRN (23:43)
[2019-10-19] MEDS: ALBUTEROL SULFATE 2.5 MG/3 ML NEBU. NEB PRN ×3 (03:40→16:50)
[2019-10-19 05:38] VITALS: BP 122/60
[2019-10-19 09:16] LABS: BASO % 0 % (0-3); EOS % 0 % (0-3); HEMATOCRIT 43.9 % (36.0-47.0); LYMPH # 0.4 x10^3/uL (1.0-4.8); LYMPH % 4 % (24-48); MEAN CORPUSCULAR HEMOGLOBIN 31 pg (25-35); MEAN CORPUSCULAR HGB CONC 32 g/dL (31-37); MEAN CORPUSCULAR VOLUME 98 fL (79-100); MONO # 0.4 x10^3/uL (0.0-1.1); MONO % 4 % (0-9); NEUT # 9.8 x10^3uL (1.8-7.7); NEUT % 92 % (31-73); PLATELET COUNT 174 x10^3/uL (140-400); RED BLOOD COUNT 4.48 x10^6/uL (3.50-5.40); WHITE BLOOD COUNT 10.6 x10^3/uL (4.0-11.0)
[2019-10-19 09:34] LABS: ALBUMIN 2.9 g/dL (3.4-5.0); ALBUMIN/GLOBULIN RATIO 0.9 (1.0-1.7); CALCIUM 9.3 mg/dL (8.5-10.1); CREATININE 0.5 mg/dL (0.6-1.0); GFR 118.7; POTASSIUM 4.9 mmol/L (3.5-5.1); TOTAL BILIRUBIN 0.3 mg/dL (0.2-1.0); TOTAL PROTEIN 6.2 g/dL (6.4-8.2)
[2019-10-19] MEDS: CYANOCOBALAMIN (VITAMIN B-12) 1,000 MCG TABLET. PO SCH (09:35)
[2019-10-19] MEDS: MULTIVITAMIN I-VITE TABLET. PO SCH (09:35)
[2019-10-19] MEDS: NICOTINE 21MG PATCH. TD SCH (09:35)
[2019-10-19] MEDS: VITAMIN E. 400 UNIT CAPSULE. PO SCH (09:35)
[2019-10-19] MEDS: OMEGA-3 FATTY ACIDS/FISH OIL 1,000 MG CAPSULE. PO SCH (09:35)
[2019-10-19] MEDS: ARIPiprazole 5 MG TABLET PO SCH ×3 (09:36→17:13)
[2019-10-19] MEDS: FUROSEMIDE 20 MG TABLET PO SCH (09:36)
[2019-10-19] MEDS: MAGNESIUM OXIDE 400 MG TABLET PO SCH (09:36)
[2019-10-19] MEDS: amLODIPine BESYLATE 5 MG TABLET PO SCH (09:36)
[2019-10-19] MEDS: METOPROLOL SUCC 24HR ER 25 MG TAB.ER.24H. PO SCH (09:37)
[2019-10-19] MEDS: SERTRALINE 100 MG TABLET. PO SCH (09:37)
[2019-10-19 10:09] LABS: % ATYL 1 % (0-0); % BANDS 5 % (0-9); % LYMPHS 4 % (24-48); % MONOS 2 % (0-10); % SEGS 88 % (35-66)
[2019-10-19 10:10] LABS: PLT ESTIMATE ADEQUATE (ADEQUATE)
[2019-10-19 10:11] LABS: TOXIC GRANULATION SLIGHT
[2019-10-19] MEDS: BUDESONIDE 0.5 MG/2 ML NEBU NEB SCH ×2 (11:00→21:53)
--- NOTE | 2019-10-19 14:38 | TX PLAN ---
Interdisciplinary Tx Plan Admission Information Oct 13, 2019 at 17:22 Legal Status (on Admission): Voluntary, DPOA DPOA/Guardian Name: Judit Kim-daughter Contact (cell) Other Contact Name: Nayla Other Contact Verified Code Status: Full Code Allergies: Coded Allergies: Iodinated Contrast- Oral and IV Dye (Verified Allergy, Intermediate, 05/26/18) atorvastatin (Verified Allergy, Intermediate, 05/26/18) lisinopril (Verified Allergy, Intermediate, 05/26/18) tramadol (Verified Allergy, Intermediate, 05/26/18) Diagnoses Primary Diagnosis: MDD recurrent with psychotic features, anxiety d/o unspecified, mild cognitive imparment Reasons for Admission: Delusions, Agitated, Sig. Change Appetite, Anxi ety/Panic, Suspicious/paranoid, Confusion/Disoriented, Isolating Problem in Patient's Words: Per Angie when SW asked her what brought her to the hospital, "Alzheimers I suppose. I fly off the handleand then don't remember the next day." Additional Admission Comments: Per intake record, Angie has been agitated, verbally abusive, poor intake of meals, refusing cares/showers, has been anxious, anxiety is preventing Angie from being involved in facility life/meals, locking staff out of her room, calling 911, and thinks others are stealing from her. Problems Active Problems: Anxious, periods of aggression towards staff, paranoid, needs encouragement to take meds Inactive Problems: adequate sleep, eating 50% of meals Pt Strengths/Limitations Ability for [place]: Fair Cognitive Functioning/Ability: Fair Communication Skills/Ability: Fair Financial Resources: Fair Insight/Judgement: Poor Intellectual Ability: Fair Physical Health: Fair Social Skills: Fair Stability in Family: Fair Verbal Skills: Fair Discharge Criteria Discharge Criteria: No need for close observ., Adequate arrangements @DC, Improved behavior, Improved mood/thought Preliminary Discharge Plan Preliminary DC Plan: Assisted Living Special Precautions Special Precautions: Agitation/Assault Fall Risk: High Initial D/C Plan To return to [facility] Identified Discharge Needs: Out patient psychiatry services, counseling support if available. Currently Utilized Resources Currently Utilized Resources/P: PCP services Referrals Community Resources: Out patient psychiatry, counseling support if available. Identified Problems/Hx/Goals Objectives/Short-Term Goals Short Term Goals: Control abnormal behavior, Dec. Anxiety/Panic, Dec. 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 She retired around 71 years of age. Education: Angie attended school thru the 10th grade. She obtained her GED later in life and obtained a dietary managers certificate from [employer]. Community Follow-up PCP, out patient psychiatry if available Community Provider/Family Inpu: Judit (daughter/POA) and Mariana ([facility] [facility]) participated in team meeting via phone on 10/19/19. Treatment Plan Explained Patient/Oracle Scm Consultant had this treatment plan explained to him/her as indicated by the signature below and has been given the opportunity to ask questions and make suggestions: Date: Patient/Oracle Scm Consultant Signature: Patient/Oracle Scm Consultant Decline: Yes SILVIA KELLEY Oct 19, 2019 14:38
[2019-10-19 15:47] VITALS: BP 105/57
[2019-10-19] MEDS: MIRTAZAPINE 15 MG TABLET PO SCH (20:09)
[2019-10-19] MEDS: ALPRAZolam 0.5 MG TABLET PO PRN (20:09)
--- NOTE | 2019-10-19 21:23 | PDOC ---
Exam Note: Alejandro Note: Please also refer to the separate dictated note~for this date of service dictated separately.~Patient seen individually. Discussed the patient with Nursing staff reviewed the chart.~Reviewed interim history and current functioning. Reviewed vital signs,~Labs/ Radiology~and current medications noted below. Continue current treatment with the changes noted in the dictated addendum note Assessment: Vital Signs/I&O: Vital Signs Date Time Temp Pulse Resp B/P (MAP) Pulse Ox O2 Delivery O2 Flow Rate FiO2 10/19/19 15:47 98.9 74 18 105/57 (73) 95 10/19/19 11:00 Nasal Cannula 3.0 I & O 10/18/19 10/18/19 10/19/19 15:00 23:00 07:00 Intake Total 840 ml 240 ml 0 ml Balance 840 ml 240 ml 0 ml Labs: Laboratory Tests Test 10/19/19 09:04 White Blood Count 10.6 x10^3/uL (4.0-11.0) Red Blood Count 4.48 x10^6/uL (3.50-5.40) Hemoglobin 14.0 g/dL (12.0-15.5) Hematocrit 43.9 % (36.0-47.0) Mean Corpuscular Volume 98 fL (79-100) Mean Corpuscular Hemoglobin 31 pg (25-35) Mean Corpuscular Hemoglobin Concent 32 g/dL (31-37) Red Cell Distribution Width 14.0 % (11.5-14.5) Platelet Count 174 x10^3/uL (140-400) Neutrophils (%) (Auto) 92 % (31-73) H Lymphocytes (%) (Auto) 4 % (24-48) L Monocytes (%) (Auto) 4 % (0-9) Eosinophils (%) (Auto) 0 % (0-3) Basophils (%) (Auto) 0 % (0-3) Neutrophils # (Auto) 9.8 x10^3uL (1.8-7.7) H Lymphocytes # (Auto) 0.4 x10^3/uL (1.0-4.8) L Monocytes # (Auto) 0.4 x10^3/uL (0.0-1.1) Eosinophils # (Auto) 0.0 x10^3/uL (0.0-0.7) Basophils # (Auto) 0.0 x10^3/uL (0.0-0.2) Segmented Neutrophils % 88 % (35-66) H Band Neutrophils % 5 % (0-9) Lymphocytes % 4 % (24-48) L Atypical Lymphocytes % (Manual) 1 % (0-0) H Monocytes % 2 % (0-10) Toxic Granulation Slight Platelet Estimate Adequate (ADEQUATE) Large Platelets Occ Sodium Level 146 mmol/L (136-145) H Potassium Level 4.9 mmol/L (3.5-5.1) Chloride Level 103 mmol/L (98-107) Carbon Dioxide Level 43 mmol/L (21-32) H Anion Gap 0 (6-14) L Blood Urea Nitrogen 35 mg/dL (7-20) H Creatinine 0.5 mg/dL (0.6-1.0) L Estimated GFR (Cockcroft-Gault) 118.7 BUN/Creatinine Ratio 70 (6-20) H Glucose Level 110 mg/dL (70-99) H Calcium Level 9.3 mg/dL (8.5-10.1) Total Bilirubin 0.3 mg/dL (0.2-1.0) Aspartate Amino Transferase (AST) 23 U/L (15-37) Alanine Aminotransferase (ALT) 42 U/L (14-59) Alkaline Phosphatase 67 U/L (46-116) Creatine Kinase 29 U/L (26-192) Total Protein 6.2 g/dL (6.4-8.2) L Albumin 2.9 g/dL (3.4-5.0) L Albumin/Globulin Ratio 0.9 (1.0-1.7) L Current Medications: Meds: Current Medications Medications (Trade) Dose Ordered Sig/Vikram Route PRN Reason Start Time Stop Time Status Last Admin Dose Admin Aripiprazole (Abilify) 2.5 mg BIDWMEALS PO 10/19/19 08:00 10/19/19 09:36 I have reviewed the current psychotropics carefully including drug interactions. Risk benefit ratio favors no change other than as noted in my dictated progress note. Diagnosis: Problems: (1) Anxiety disorder (2) Major depressive disorder, recurrent episode (3) Dementia, vascular, with delusions (4) Dementia, vascular, with depression (5) Dementia in Alzheimer's disease with delusions (6) Dementia in Alzheimer's disease with depression (7) Impulse control disorder (8) Dementia with behavioral disturbance LENCHO LYNN MD Oct 19, 2019 21:23
[2019-10-20 06:39] VITALS: BP 154/67
[2019-10-20] MEDS: MULTIVITAMIN I-VITE TABLET. PO SCH (08:54)
[2019-10-20] MEDS: NICOTINE 21MG PATCH. TD SCH (08:54)
[2019-10-20] MEDS: SERTRALINE 100 MG TABLET. PO SCH (08:54)
[2019-10-20] MEDS: CYANOCOBALAMIN (VITAMIN B-12) 1,000 MCG TABLET. PO SCH (08:54)
[2019-10-20] MEDS: VITAMIN E. 400 UNIT CAPSULE. PO SCH (08:54)
[2019-10-20] MEDS: ARIPiprazole 5 MG TABLET PO SCH ×2 (08:54→16:40)
[2019-10-20] MEDS: OMEGA-3 FATTY ACIDS/FISH OIL 1,000 MG CAPSULE. PO SCH (08:54)
[2019-10-20] MEDS: METOPROLOL SUCC 24HR ER 25 MG TAB.ER.24H. PO SCH (08:55)
[2019-10-20] MEDS: MAGNESIUM OXIDE 400 MG TABLET PO SCH (08:55)
[2019-10-20] MEDS: amLODIPine BESYLATE 5 MG TABLET PO SCH (08:55)
[2019-10-20] MEDS: FUROSEMIDE 20 MG TABLET PO SCH (08:55)
[2019-10-20] MEDS: MAG HYDROX/AL HYDROX/SIMETH 30 ML ORAL.SUSP PO PRN (09:43)
[2019-10-20] MEDS: BUDESONIDE 0.5 MG/2 ML NEBU NEB SCH ×2 (10:10→23:03)
[2019-10-20] MEDS: ALPRAZolam 0.5 MG TABLET PO PRN (12:39)
[2019-10-20 16:18] VITALS: BP 123/67
[2019-10-20] MEDS: ALBUTEROL SULFATE 2.5 MG/3 ML NEBU. NEB PRN (16:38)
--- NOTE | 2019-10-20 18:50 | PN ---
DATE: 10/19/2019 PSYCHIATRIC PROGRESS NOTE This late entry 10/19/2019 covers elements not covered in my initial note. SUBJECTIVE: I met with the patient evening of 10/19/2019 and staffed at a treatment team meeting with the entire team in the morning and the patient's daughter, Judit, attended together with Mariana staff member from [facility]. We had a discussion about the patient's diagnosis, current medications, restlessness, trying to jump out of her wheelchair, sustained a fall, no injury. She has attended 5 groups per [employer] activity therapy, tried to throw oxygen concentrator a staff member a day before. She gets paranoid, believes staff is trying to hide her things and harm her. Processed this at length with her. This happens despite reduction of her O2 sats. REVIEW OF SYSTEMS: Difficulty breathing, impaired ambulation in wheelchair. No CV, GI, , eye system symptoms on review. MENTAL STATUS EXAM: Oriented to herself and situation. Speech has some latency, coherent. Abstraction fair, computation impaired, language function intact, attention span short. Mood and affect remains labile. LABORATORY DATA: Reviewed. IMPRESSION: Major depressive disorder with psychotic features; anxiety disorder, unspecified; mild cognitive impairment; impulse control disorder. PLAN: Increase Zoloft from 100 mg a day to 125 mg a day, Xanax increased to 0.25 mg t.i.d. p.r.n. since Mariana indicated this was quite effective at the nursing facility. Maintain Remeron 15 mg at bedtime, trazodone at bedtime p.r.n., Abilify 2.5 mg twice a day. We will make further changes as clinically indicated. LENCHO LYNN MD DR: MELVIN/jun JOB#: [id number] / [id number]
--- NOTE | 2019-10-20 18:51 | PN ---
DATE: 10/18/2019 This late entry 10/18/2019 covers elements not covered in my initial note. SUBJECTIVE: I met with the patient evening of 10/18/2019. The patient slept 4-3/4 hours previous night. Per RERE Faulkner, she has been preoccupied with her oxygen, repeatedly up from the wheelchair, tried to throw the oxygen concentrator at staff. O2 sats 90% on 4 liters. REVIEW OF SYSTEMS: Shortness of breath impaired, ambulation in wheelchair. No CV, GI, , eye system symptoms on review. Liability varies. MENTAL STATUS EXAM: Oriented to herself and situation. Speech has some latency, coherent. Abstraction fair, computation impaired, language function intact, attention span short. Mood and affect somewhat labile. LABORATORY DATA: Reviewed. IMPRESSION: Major depressive disorder with psychotic features, mild cognitive impairment; anxiety disorder, unspecified. PLAN: Change Abilify from 5 mg a day to 2.5 mg twice a day. Continue Zoloft 100 mg a day, Remeron 15 mg at bedtime, Xanax p.r.n., trazodone p.r.n. Rest unchanged for now. LENCHO LYNN MD DR: MELVIN/jun JOB#: [id number] / [id number]
[2019-10-20] MEDS: MIRTAZAPINE 15 MG TABLET PO SCH (20:28)
--- NOTE | 2019-10-20 21:19 | PDOC ---
Exam Note: Alejandro Note: Please also refer to the separate dictated note~for this date of service dictated separately.~Patient seen individually. Discussed the patient with Nursing staff reviewed the chart.~Reviewed interim history and current functioning. Reviewed vital signs,~Labs/ Radiology~and current medications noted below. Continue current treatment with the changes noted in the dictated addendum note Assessment: Vital Signs/I&O: Vital Signs Date Time Temp Pulse Resp B/P (MAP) Pulse Ox O2 Delivery O2 Flow Rate FiO2 10/20/19 16:18 98.5 80 20 123/67 (85) 93 4.0 10/20/19 10:10 Nasal Cannula I & O 10/19/19 10/19/19 10/20/19 15:00 23:00 07:00 Intake Total 480 ml 240 ml 240 ml Balance 480 ml 240 ml 240 ml Current Medications: I have reviewed the current psychotropics carefully including drug interactions. Risk benefit ratio favors no change other than as noted in my dictated progress note. Diagnosis: Problems: (1) Anxiety disorder (2) Major depressive disorder, recurrent episode (3) Dementia, vascular, with delusions (4) Dementia, vascular, with depression (5) Dementia in Alzheimer's disease with delusions (6) Dementia in Alzheimer's disease with depression (7) Impulse control disorder (8) Dementia with behavioral disturbance LENCHO LYNN MD Oct 20, 2019 21:19
[2019-10-21] MEDS: MAG HYDROX/AL HYDROX/SIMETH 30 ML ORAL.SUSP PO PRN (01:43)
[2019-10-21 06:26] VITALS: BP 149/69
[2019-10-21] MEDS: ARIPiprazole 5 MG TABLET PO SCH ×2 (08:24→16:18)
[2019-10-21] MEDS: OMEGA-3 FATTY ACIDS/FISH OIL 1,000 MG CAPSULE. PO SCH (08:24)
[2019-10-21] MEDS: VITAMIN E. 400 UNIT CAPSULE. PO SCH (08:25)
[2019-10-21] MEDS: FUROSEMIDE 20 MG TABLET PO SCH (08:25)
[2019-10-21] MEDS: amLODIPine BESYLATE 5 MG TABLET PO SCH (08:25)
[2019-10-21] MEDS: CYANOCOBALAMIN (VITAMIN B-12) 1,000 MCG TABLET. PO SCH (08:25)
[2019-10-21] MEDS: METOPROLOL SUCC 24HR ER 25 MG TAB.ER.24H. PO SCH (08:25)
[2019-10-21] MEDS: MULTIVITAMIN I-VITE TABLET. PO SCH (08:26)
[2019-10-21] MEDS: NICOTINE 21MG PATCH. TD SCH (08:26)
[2019-10-21] MEDS: MAGNESIUM OXIDE 400 MG TABLET PO SCH (08:26)
[2019-10-21] MEDS: SERTRALINE 100 MG TABLET. PO SCH (08:26)
[2019-10-21] MEDS: BUDESONIDE 0.5 MG/2 ML NEBU NEB SCH ×2 (10:27→19:56)
[2019-10-21] MEDS: ACETAMINOPHEN 500 MG TABLET PO PRN (16:18)
[2019-10-21 16:23] VITALS: BP 125/58
[2019-10-21] MEDS: MIRTAZAPINE 15 MG TABLET PO SCH (20:48)
--- NOTE | 2019-10-21 21:18 | PDOC ---
Exam Note: Alejandro Note: Please also refer to the separate dictated note~for this date of service dictated separately.~Patient seen individually. Discussed the patient with Nursing staff reviewed the chart.~Reviewed interim history and current functioning. Reviewed vital signs,~Labs/ Radiology~and current medications noted below. Continue current treatment with the changes noted in the dictated addendum note Assessment: Vital Signs/I&O: Vital Signs Date Time Temp Pulse Resp B/P (MAP) Pulse Ox O2 Delivery O2 Flow Rate FiO2 10/21/19 19:59 95 Nasal Cannula 5.0 10/21/19 16:23 97.5 70 20 125/58 (80) I & O 10/20/19 10/20/19 10/21/19 15:00 23:00 07:00 Intake Total 720 ml 240 ml 240 ml Balance 720 ml 240 ml 240 ml Current Medications: I have reviewed the current psychotropics carefully including drug interactions. Risk benefit ratio favors no change other than as noted in my dictated progress note. Diagnosis: Problems: (1) Anxiety disorder (2) Major depressive disorder, recurrent episode (3) Dementia, vascular, with delusions (4) Dementia, vascular, with depression (5) Dementia in Alzheimer's disease with delusions (6) Dementia in Alzheimer's disease with depression (7) Impulse control disorder (8) Dementia with behavioral disturbance LENCHO LYNN MD Oct 21, 2019 21:18
[2019-10-22 03:53] LABS: BASO % 0 % (0-3); EOS # 0.3 x10^3/uL (0.0-0.7); EOS % 5 % (0-3); HEMATOCRIT 41.7 % (36.0-47.0); HEMOGLOBIN 13.2 g/dL (12.0-15.5); LYMPH # 0.7 x10^3/uL (1.0-4.8); LYMPH % 12 % (24-48); MEAN CORPUSCULAR HEMOGLOBIN 31 pg (25-35); MEAN CORPUSCULAR HGB CONC 32 g/dL (31-37); MEAN CORPUSCULAR VOLUME 98 fL (79-100); MONO # 0.5 x10^3/uL (0.0-1.1); MONO % 8 % (0-9); NEUT # 4.8 x10^3uL (1.8-7.7); NEUT % 76 % (31-73); PLATELET COUNT 158 x10^3/uL (140-400); RED BLOOD COUNT 4.24 x10^6/uL (3.50-5.40); WHITE BLOOD COUNT 6.3 x10^3/uL (4.0-11.0)
[2019-10-22 04:03] LABS: CALCIUM 9.3 mg/dL (8.5-10.1); CREATININE 0.4 mg/dL (0.6-1.0); GFR 153.6; POTASSIUM 4.2 mmol/L (3.5-5.1)
[2019-10-22 04:08] LABS: ALBUMIN 2.9 g/dL (3.4-5.0); ALBUMIN/GLOBULIN RATIO 0.9 (1.0-1.7); TOTAL BILIRUBIN 0.5 mg/dL (0.2-1.0)
[2019-10-22 04:42] LABS: BGAS PH 7.39 (7.35-7.45)
[2019-10-22] MEDS ORDERED: HYDR-2759 PO (04:54)
[2019-10-22] MEDS ORDERED: TRAZ-120 PO (04:56)
[2019-10-22] MEDS ORDERED: ARIP5TAB13 PO (04:59)
[2019-10-22] MEDS ORDERED: OLAN5TAB5 PO (05:00)
[2019-10-22] MEDS ORDERED: HYDR25TA PO (05:03)
[2019-10-22] MEDS ORDERED: BUDE0.5A11 IH (05:05)
[2019-10-22] MEDS ORDERED: NICO1PAT21 TD (05:07)
[2019-10-22] MEDS ORDERED: MENT118G TP (05:09)
--- NOTE | 2019-10-22 06:30 | RAD ---
CHEST AP ONLY History: Low O2 sats. End-stage COPD Comparison: October 14, 2019 Findings: Increased diffuse interstitial thickening. Hyperinflation. Blunting of the costophrenic angles. No pneumothorax. Normal heart size. Calcified left hilar lymph nodes and calcified left lower lung granuloma related to prior granulomas disease. Impression: 1. Increased diffuse interstitial thickening, may represent pulmonary edema or atypical infection. 2. Blunting of the costophrenic angles, may relate to pleural thickening or small pleural effusions. Electronically signed by: Papito Gold DO (10/22/2019 6:27 AM) [id number]
[2019-10-22] MEDS ORDERED: SERTRALINE 50 MG TABLET. PO SCH (09:00)
--- NOTE | 2019-10-22 21:18 | PDOC ---
Exam Note: Alejandro Note: Please also refer to the separate dictated note~for this date of service dictated separately.~Patient seen individually. Discussed the patient with Nursing staff reviewed the chart.~Reviewed interim history and current functioning. Reviewed vital signs,~Labs/ Radiology~and current medications noted below. Continue current treatment with the changes noted in the dictated addendum note Assessment: Vital Signs/I&O: Vital Signs Date Time Temp Pulse Resp B/P (MAP) Pulse Ox O2 Delivery O2 Flow Rate FiO2 10/22/19 05:36 90 BiPAP/CPAP 10/21/19 19:59 5.0 10/21/19 16:23 97.5 70 20 125/58 (80) I & O 10/21/19 10/21/19 10/22/19 15:00 23:00 07:00 Intake Total 600 ml 240 ml Balance 600 ml 240 ml Labs: Laboratory Tests Test 10/22/19 03:30 10/22/19 04:29 White Blood Count 6.3 x10^3/uL (4.0-11.0) Red Blood Count 4.24 x10^6/uL (3.50-5.40) Hemoglobin 13.2 g/dL (12.0-15.5) Hematocrit 41.7 % (36.0-47.0) Mean Corpuscular Volume 98 fL (79-100) Mean Corpuscular Hemoglobin 31 pg (25-35) Mean Corpuscular Hemoglobin Concent 32 g/dL (31-37) Red Cell Distribution Width 14.0 % (11.5-14.5) Platelet Count 158 x10^3/uL (140-400) Neutrophils (%) (Auto) 76 % (31-73) H Lymphocytes (%) (Auto) 12 % (24-48) L Monocytes (%) (Auto) 8 % (0-9) Eosinophils (%) (Auto) 5 % (0-3) H Basophils (%) (Auto) 0 % (0-3) Neutrophils # (Auto) 4.8 x10^3uL (1.8-7.7) Lymphocytes # (Auto) 0.7 x10^3/uL (1.0-4.8) L Monocytes # (Auto) 0.5 x10^3/uL (0.0-1.1) Eosinophils # (Auto) 0.3 x10^3/uL (0.0-0.7) Basophils # (Auto) 0.0 x10^3/uL (0.0-0.2) Sodium Level 147 mmol/L (136-145) H Potassium Level 4.2 mmol/L (3.5-5.1) Chloride Level 105 mmol/L (98-107) Carbon Dioxide Level 47 mmol/L (21-32) H Anion Gap -5 (6-14) L Blood Urea Nitrogen 34 mg/dL (7-20) H Creatinine 0.4 mg/dL (0.6-1.0) L Estimated GFR (Cockcroft-Gault) 153.6 BUN/Creatinine Ratio 85 (6-20) H Glucose Level 97 mg/dL (70-99) Calcium Level 9.3 mg/dL (8.5-10.1) Total Bilirubin 0.5 mg/dL (0.2-1.0) Aspartate Amino Transferase (AST) 23 U/L (15-37) Alanine Aminotransferase (ALT) 46 U/L (14-59) Alkaline Phosphatase 69 U/L (46-116) Total Protein 6.0 g/dL (6.4-8.2) L Albumin 2.9 g/dL (3.4-5.0) L Albumin/Globulin Ratio 0.9 (1.0-1.7) L Blood pH 7.39 (7.35-7.45) Blood Gas PCO2 80 mmHg (35-45) *H Blood Gas PO2 66 mmHg (71-100) L Blood Gas HCO3 48 mmol/L (22-26) H Arterial Bld O2 Saturation (Calc) 92 % (92-99) FiO2 36 % Current Medications: I have reviewed the current psychotropics carefully including drug interactions. Risk benefit ratio favors no change other than as noted in my dictated progress note. Diagnosis: Problems: (1) Anxiety disorder (2) Major depressive disorder, recurrent episode (3) Dementia, vascular, with delusions (4) Dementia, vascular, with depression (5) Dementia in Alzheimer's disease with delusions (6) Dementia in Alzheimer's disease with depression (7) Impulse control disorder LENCHO LYNN MD Oct 22, 2019 21:18
--- NOTE | 2019-10-22 23:23 | PN ---
DATE: 10/20/2019 PSYCHIATRIC PROGRESS NOTE This late entry 10/20/2019 covers elements not covered in my initial note. SUBJECTIVE: I met with the patient evening of 10/20/2019. Per RERE Marvin, the patient slept 5-1/2 hours previous night. She was quite restless in the morning, confused, disorganized, later received Xanax, was better. She does better if she keeps her oxygen in place and the sats do not drop. She has low-grade fever, deferred to Dr. Jordan, but no fever on 10/20/2019. She has had some loose stools. Fluids are being pushed. She ate lunch and breakfast, but no dinner. REVIEW OF SYSTEMS: Shortness of breath, on 3 liters oxygen, impaired ambulation in wheelchair. No CV, , GI, eye system symptoms on review other than the diarrhea. MENTAL STATUS EXAMINATION: Oriented to herself and situation. Speech is coherent, has some latency. Abstraction fair, computation impaired, language function intact, attention span short. Mood and affect less withdrawn at times, still anxious, labile. LABORATORY DATA: Reviewed. IMPRESSION: Unchanged from initial note. PLAN: No change from initial note. LENCHO LYNN MD DR: MELVIN/jun JOB#: [id number] / [id number]
--- NOTE | 2019-10-23 10:19 | DS ---
DATE OF DISCHARGE: 10/22/2019 DISCHARGE SUMMARY/PSYCHIATRIC PROGRESS NOTE This late entry 10/22/2019 covers the elements not covered in my initial note. REASON FOR ADMISSION: Please refer to the admission history for details. Briefly, the patient is an 79-year-old female referred to us from [facility] by her primary care physician on account of increasing agitation, being verbally abusive, refusing cares, not eating well, anxious, paranoid. She had been depressed, somewhat more confused and her drop in O2 sats contributed partly to her worsening confusion. She had failed outpatient psychiatric interventions resulting in this referral. SIGNIFICANT FINDINGS AND CLINICAL COURSE: Following admission, the patient was seen daily individually by myself from a psychiatric standpoint, medical followup per Dr. Jordan. The patient's O2 sats were dropped significantly if she removed her oxygen, which she continued to do initially due to her anxiety or restlessness. She was in and out of her wheelchair with a fall risk. Adjustments were made in her psychotropics and she seemed to do a little better on Zoloft 125 mg a day, Remeron 15 mg at bedtime, Xanax 1 mg b.i.d. p.r.n. anxiety, trazodone 50 mg at bedtime p.r.n., may repeat x 1, Abilify 2.5 mg twice a day to augment the Zoloft and as a mood stabilizer and for her paranoia that was evident. Gradually, she was showing some improvement in her mood, anxiety, paranoia, but at this stage, her oxygen sats were dropping and she was transferred to the ICU per Dr. Jordan. REVIEW OF SYSTEMS: Prior to discharge on 10/22/2019, ambulation impaired, in wheelchair, shortness of breath, on O2 supplements. No CV, GI, system symptoms on review. MENTAL STATUS EXAMINATION: Oriented to herself and situation. Speech has some latency, coherent. Abstraction fair, computation impaired, language function intact, attention span short. Mood and affect withdrawn. More confused with the O2 drops. No suicidal or homicidal ideation at discharge. FINAL DIAGNOSES: Major depressive disorder, recurrent with psychotic features, mild cognitive impairment; anxiety disorder, unspecified. Rest unchanged from admission including respiratory failure. DISCHARGE MEDICATIONS: Please refer to the MRAD. DISCHARGE INSTRUCTIONS: Psychiatric and medical followup in the ICU per Dr. Jordan. Time for discharge day management is greater than 30 minutes. The nursing staff had called me as an emergency supervisor safety deposit regarding discharge. LENCHO LYNN MD DR: MELVIN/jun JOB#: [id number] / [id number]
--- NOTE | 2019-10-23 11:40 | PN ---
DATE: 10/21/2019 PSYCHIATRIC PROGRESS NOTE This late entry 10/21/2019 covers elements not covered in my initial note. SUBJECTIVE: I met with the patient evening of 10/21/2019. Per RERE Dang, the patient slept 6-1/4 hours previous night. Previous evening, she was soaked in her bed. Nursing staff intervened. She has been cooperative, somewhat suspicious in the morning, refused her medications, still depressed and anxious. REVIEW OF SYSTEMS: Positive for impaired ambulation with walker/wheelchair; shortness of breath, on 3 liters oxygen. No CV, GI, , eye system symptoms on review. MENTAL STATUS EXAM: Oriented to herself and situation. Speech has some latency, coherent. Abstraction fair, computation impaired, language function intact, attention span short. Mood and affect somewhat withdrawn, appears more confused at times. LABORATORY DATA: Reviewed. IMPRESSION: Major depressive disorder, recurrent with psychotic features, mild cognitive impairment, low oxygen saturation if she does not use her oxygen. Rest unchanged. PLAN: Continue psychotropics from initial note. Increase Zoloft from 100 mg a day to 125 mg a day. Rest unchanged. MAN Ridge LYNN MD DR: MELVIN/jun JOB#: [id number] / [id number]
== END 2019-10-22 05:23 | disposition short-term general hospital (02) | DRG 885 ==
LOC: ER 12:58 → GEROPSY 17:22
PROVIDERS: ADMIT Psychiatry & Neurology Psychiatry; ATTEND Psychiatry & Neurology Psychiatry
DX: F33.3 Major depressive disorder, recurrent, severe with psychotic symptoms (principal); J96.90 Respiratory failure, unspecified, unspecified whether with hypoxia or hypercapnia; F02.81 Dementia in other diseases classified elsewhere, unspecified severity, with behavioral disturbance; F01.51 Vascular dementia, unspecified severity, with behavioral disturbance; R64 Cachexia; Z68.1 Body mass index [BMI] 19.9 or less, adult; F05 Delirium due to known physiological condition; F41.9 Anxiety disorder, unspecified; M19.90 Unspecified osteoarthritis, unspecified site; H40.9 Unspecified glaucoma; F06.4 Anxiety disorder due to known physiological condition; I25.10 Atherosclerotic heart disease of native coronary artery without angina pectoris; J44.9 Chronic obstructive pulmonary disease, unspecified; E78.00 Pure hypercholesterolemia, unspecified; E78.5 Hyperlipidemia, unspecified; F17.200 Nicotine dependence, unspecified, uncomplicated; M06.9 Rheumatoid arthritis, unspecified; G30.9 Alzheimer's disease, unspecified; F63.9 Impulse disorder, unspecified; G47.00 Insomnia, unspecified; I10 Essential (primary) hypertension; Z02.9 Encounter for administrative examinations, unspecified; Z88.8 Allergy status to other drugs, medicaments and biological substances; Z91.041 Radiographic dye allergy status; Z85.51 Personal history of malignant neoplasm of bladder; Z79.899 Other long term (current) drug therapy
CPT/HCPCS: 36415; 71045; 72100; 73521; 74176; 80053; 80061; 80307; 81001; 82306; 82550; 82607; 82803; 83036; 83540; 83550; 83735; 84436; 84443; 84480; 85007; 85025; 86592; 93005; 94640; 94760; 99406; G0480; J7613; J7626; 97530; 97535; 99285-25

== ENCOUNTER 2019-10-22 05:36 | Inpatient (IN) | payer MEDICARE, OTHER ==
[~2019-10-22] VITALS: Ht 160 cm; Wt 42.1 kg
[2019-10-22] VITALS (16 sets, daily range): BP systolic 98–169; BP diastolic 49–90
[~2019-10-22 05:36] MED LIST changes: +ACET500T68 PO; +ALPR1TAB6 PO; +AMLO5TAB10 PO; +ARIP5TAB13 PO; +BUDE0.5A11 IH; +CYAN-25 PO; +FURO-69 PO; +HYDR-2759 PO; +HYDR25TA PO; +MAGN250T9 PO; +MENT118G TP; +METO-239 PO; +MULT-121 PO; +OLAN5TAB5 PO; +OMEG1CAP50 PO; +SERT100T PO; +SIME80TA14 PO; +VITA400C37 PO
[2019-10-22] MEDS ORDERED: IV DEXTROSE 5 %-0.2 % NACL 1,000 ML IV SCH (05:45)
[2019-10-22 07:25] LABS: BGAS PH 7.4 (7.35-7.45)
[2019-10-22] MEDS ORDERED: methylPREDNISolone SOD SUCC PF 125 MG/2 ML VIAL. IV ONE ×2 (13:30→14:00)
[2019-10-22] MEDS ORDERED: PIP/TAZO PER PHARMACY MC PRN (13:30)
[2019-10-22] MEDS ORDERED: FUROSEMIDE 20 MG/2 ML VIAL IVP ONE (13:45)
[2019-10-22] MEDS ORDERED: methylPREDNISolone SOD SUCC PF 40 MG/ML VIAL. IV SCH (14:00)
[2019-10-22] MEDS: PIPERACILLIN/TAZOBACTAM 2.25 GM in IV NORMAL SALINE 50ML 50 ML IV SCH ×2 (14:20→20:44)
[2019-10-22] MEDS ORDERED: VANCOMYCIN 1 GM in IV NORMAL SALINE 250ML 250 ML IV ONE (14:30)
--- NOTE | 2019-10-22 14:54 | HP ---
ADMIT DATE: 10/22/2019 HISTORY OF PRESENT ILLNESS: The patient is an 79-year-old female patient who was at [facility], was noted by the nursing staff, to be hypoxic, very lethargic and her oxygen saturation was 80% despite being on 4 liters of oxygen by nasal cannula and she apparently had stat labs and ABGs and pCO2 was 18 and bicarbonate was 58 and therefore, a decision was made to transfer her to the ICU and was started on BiPAP machine. The patient herself was very lethargic, but does not complain of any shortness of breath, chest pain, cough or phlegm. She did have a chest x-ray, which showed that she has increased diffuse interstitial thickening, hyperinflation, blunting of the costophrenic angles, no pneumothorax, normal heart size, calcified left hilar lymph nodes and calcified left lower lung granuloma related to prior granulomatous disease. The increased diffuse interstitial thickening may represent pulmonary edema or atypical infection. Blunting of the costophrenic angle may relate to pleural thickening or small pleural effusion. Her chest x-ray done on admission showed only emphysema. There are also chronic interstitial changes. No pleural effusion or pneumothorax seen. There are calcified granulomas and stable cardiac silhouette. Apparently, she has been hypoxic over the last 3 days and her oxygen was increased to 4 liters of oxygen. PAST MEDICAL HISTORY: Significant for hyperlipidemia, hypertension, chronic obstructive pulmonary disease, bladder cancer, rheumatoid arthritis, glaucoma and nicotine dependence. PAST SURGICAL HISTORY: Significant for appendectomy, multiple back surgeries and bladder surgeries for bladder cancer. ALLERGIES: She is allergic to IODINATED CONTRAST, ORAL and IV DYE, ATORVASTATIN, LISINOPRIL and TRAMADOL. FAMILY HISTORY: Noncontributory. SOCIAL HISTORY: She is , has 2 grown daughters. She continues to smoke, does not drink alcohol or use recreational drugs. The patient was actually admitted to [facility] on account of being agitated, verbally abusive, refusing care, not eating well and anxious, paranoid, all this in a background of major depressive disorder. MEDICATIONS: The patient was on following medications: She was on sertraline 125 mg daily, aripiprazole (Abilify) 2.5 mg twice a day, trazodone 50 mg at bedtime, hydroxyzine 25 mg every 2 hours. She is also on hydrocodone/APAP 5/325 one tablet every 6 hours for her chronic back pain. She was on magnesium oxide 400 mg daily, vitamin E 400 units once a day, multivitamin 1 tablet once a day, sertraline. She was on fish oil 1000 mg once a day, metoprolol succinate 25 mg once a day, furosemide 20 mg once a day, diltiazem 120 mg once a day, cyanocobalamin 1000 mcg once a day, amlodipine besylate 5 mg daily, NicoDerm CQ 21 mg patch topically daily, mirtazapine 15 mg at bedtime. She is on Pulmicort 0.5 mg twice a day, olanzapine 2.5 mg every 2 hours, milk of magnesia 30 mL p.o. daily p.r.n. for constipation, albuterol sulfate 2.5 mg by nebulizer every 4 hours, alprazolam 1 mg twice a day, simethicone 80 mg 4 times a day and Tylenol 1000 mg every 6 hours. PHYSICAL EXAMINATION: GENERAL: On examining her on arrival to the ICU, the patient was obviously more awake, alert, asking to have the mass taken off. She was somewhat pale, extremely cachectic, but no jaundice, cyanosis or thyromegaly. No jugular venous distention. No lower limb edema. VITAL SIGNS: Her heart rate was 81, blood pressure was 159/75, temperature was 98.9, respiratory rate 24 and oxygen saturation was 91%. HEAD, EYES, EARS, NOSE AND THROAT: Showed normocephalic, atraumatic. NECK: Supple. HEART: Showed normal first and second heart sounds. No gallop or murmur. CHEST: Shows central trachea, equally reduced expansion, reduced air entry and vesicular breath sounds. I could not really appreciate any crepitation or rhonchi. ABDOMEN: Scaphoid, soft, nontender. NEUROLOGIC: She is definitely more awake, alert. All her cranial nerves intact. EXTREMITIES: She moves extremities without difficulty. She normally ambulates without assistance or assistive devices. LABORATORY DATA: Her lab work done early this morning showed that her white cell count was 6300, hemoglobin 13, hematocrit 42, MCV 98 and platelet count of 158,000. Her blood gases done upstairs at the [facility] showed a pH of 7.39, pCO2 of 80, pO2 of 66, bicarbonate 48 and oxygen saturation was 92% on FiO2 of 36%. Her chemistry showed a serum sodium 147, potassium 4.2, chloride 105, bicarbonate 47, anion gap of -5. Her BUN is 34, creatinine was 0.4, estimated GFR was 153 mL per minute. Her glucose was 97, calcium was 9.3. Total bilirubin, AST, ALT, alkaline phosphatase were normal. Total protein 6, albumin was 2.9. Her chest x-ray done this morning showed increased diffuse interstitial thickening, hyperinflation with blunting of the costophrenic angles, no pneumothorax, normal heart size, calcified left hilar lymph nodes and calcified left lower lung granulomas related to prior granulomatous disease. IMPRESSION: The patient has increased diffuse interstitial thickening. This may represent pulmonary edema and/or atypical infection. She has also blunting of the costophrenic angle, may relate to the pleural thickening or small pleural effusion, so the patient was admitted basically to transfer to the Intensive Care Unit with altered mental status, felt to be acute on chronic hypoxic hypercapnic respiratory failure. The patient was started on BiPAP machine. The plan to repeat her blood gases. She was hyponatremic and her bicarbonate was extremely high. The patient is already on diuretics and her white cell count is not high, but obviously atypical infection may present with normal white cell count. LESTER FELICIANO MD DR: DIXIE/jun JOB#: [id number] / [id number]
[2019-10-22] MEDS ORDERED: IPRATRPIUM/ALBUTEROL 0.5/2.5MG 3 ML NEBU. NEB SCH ×2 (16:00→19:00)
[2019-10-22] MEDS: VANCOMYCIN PER PHARMACY MC PRN ×2 (16:23→16:28)
[2019-10-22] MEDS: dilTIAZem HCL 30 MG TABLET PO SCH ×3 (18:30→23:59)
[2019-10-22] MEDS: LACTOBACILLUS RHAMNOSUS GG 1 CAPSULE. PO SCH (20:43)
[2019-10-22] MEDS: methylPREDNISolone SOD SUCC PF 40 MG/ML VIAL. IV SCH (20:43)
[2019-10-22] MEDS: MONTELUKAST 10 MG TABLET. PO SCH (20:43)
--- NOTE | 2019-10-22 21:20 | PDOC ---
Exam Note: Alejandro Note: Please also refer to the separate dictated note~for this date of service dictated separately.~Patient seen individually. Discussed the patient with Nursing staff reviewed the chart.~Reviewed interim history and current functioning. Reviewed vital signs,~Labs/ Radiology~and current medications noted below. Continue current treatment with the changes noted in the dictated addendum note Assessment: Vital Signs/I&O: Vital Signs Date Time Temp Pulse Resp B/P (MAP) Pulse Ox O2 Delivery O2 Flow Rate FiO2 10/22/19 20:08 Nasal Cannula 3.0 10/22/19 19:35 102 94 10/22/19 19:15 98.6 18 118/60 (79) I & O 0 10/21/19 10/21/19 10/22/19 15:00 23:00 07:00 Intake Total 0 ml Balance 0 ml Labs: Laboratory Tests Test 10/22/19 02:55 10/22/19 07:13 10/22/19 18:25 Troponin I Quantitative < 0.017 ng/mL (0-0.055) VI-Ptr-T-Type Natriuretic Peptide 1004 pg/mL (0-449) H Blood pH 7.40 (7.35-7.45) Blood Gas PCO2 83 mmHg (35-45) *H Blood Gas PO2 81 mmHg (71-100) Blood Gas HCO3 51 mmol/L (22-26) H Arterial Bld O2 Saturation (Calc) 95 % (92-99) FiO2 40 % Magnesium Level 1.7 mg/dL (1.8-2.4) L Current Medications: Meds: Current Medications Medications (Trade) Dose Ordered Sig/Vikram Route PRN Reason Start Time Stop Time Status Last Admin Dose Admin Dextrose/Sodium Chloride 1,000 ml @ 75 mls/hr [id number] IV 10/22/19 05:45 10/22/19 16:58 DC 10/22/19 05:45 Vancomycin HCl (Vanco Per Pharmacy) 1 each PRN DAILY PRN MC SEE COMMENTS 10/22/19 13:30 10/22/19 16:28 Methylprednisolone Sodium Succinate (SOLU-Medrol 125MG VIAL) 125 mg 1X ONCE IV 10/22/19 13:30 10/22/19 13:36 DC 10/22/19 13:42 Albuterol/ Ipratropium (Duoneb) 3 ml RTQID NEB 10/22/19 16:00 10/22/19 18:56 DC 10/22/19 17:04 Montelukast Sodium (Singulair) 10 mg QHS PO 10/22/19 21:00 10/22/19 20:43 Furosemide (Lasix) 20 mg 1X ONCE IVP 10/22/19 13:45 10/22/19 13:46 DC 10/22/19 13:42 Levofloxacin/ Dextrose 100 ml @ 100 mls/hr 1X ONCE IV 10/22/19 15:00 10/22/19 15:59 DC 10/22/19 16:35 Methylprednisolone Sodium Succinate (SOLU-Medrol 40MG VIAL) 40 mg Q8HRS IV 10/22/19 22:00 10/22/19 20:43 Methylprednisolone Sodium Succinate (SOLU-Medrol 125MG VIAL) 125 mg 1X ONCE IV 10/22/19 14:00 10/22/19 14:01 DC 10/22/19 14:00 Piperacillin Sod/ Tazobactam Sod 2.25 gm/Sodium Chloride 50 ml @ 100 mls/hr Q6H IV 10/22/19 14:00 10/22/19 20:44 Vancomycin HCl 1 gm/Sodium Chloride 250 ml @ 250 mls/hr 1X ONCE IV 10/22/19 14:30 10/22/19 15:29 DC 10/22/19 16:34 Lactobacillus Rhamnosus (Culturelle) 1 cap BID PO 10/22/19 21:00 10/22/19 20:43 Diltiazem HCl (Cardizem) 30 mg Q6HRS PO 10/22/19 18:30 10/22/19 18:41 I have reviewed the current psychotropics carefully including drug interactions. Risk benefit ratio favors no change other than as noted in my dictated progress note. Diagnosis: Problems: (1) Anxiety disorder (2) Major depressive disorder, recurrent episode (3) Dementia, vascular, with delusions (4) Dementia, vascular, with depression (5) Dementia in Alzheimer's disease with delusions (6) Dementia in Alzheimer's disease with depression (7) Impulse control disorder LENCHO LYNN MD Oct 22, 2019 21:20
--- NOTE | 2019-10-22 21:37 | PDOC ---
Exam Note: Alejandro Note: This is a wrong entry for Date of Consultation. Please ignore. Please also refer to the separate dictated note~for this date of service dictated separately.~Patient seen individually. Discussed the patient with Nursing staff reviewed the chart.~Reviewed interim history and current functioning. Reviewed vital signs,~Labs/ Radiology~and current medications noted below. Continue current treatment with the changes noted in the dictated addendum note Assessment: Vital Signs/I&O: Vital Signs Date Time Temp Pulse Resp B/P (MAP) Pulse Ox O2 Delivery O2 Flow Rate FiO2 10/22/19 20:08 Nasal Cannula 3.0 10/22/19 19:35 102 94 10/22/19 19:15 98.6 18 118/60 (79) I & O 10/21/19 10/21/19 10/22/19 15:00 23:00 07:00 Intake Total 0 ml Balance 0 ml Labs: Laboratory Tests Test 10/22/19 02:55 10/22/19 07:13 10/22/19 18:25 Troponin I Quantitative < 0.017 ng/mL (0-0.055) PQ-Gpi-U-Type Natriuretic Peptide 1004 pg/mL (0-449) H Blood pH 7.40 (7.35-7.45) Blood Gas PCO2 83 mmHg (35-45) *H Blood Gas PO2 81 mmHg (71-100) Blood Gas HCO3 51 mmol/L (22-26) H Arterial Bld O2 Saturation (Calc) 95 % (92-99) FiO2 40 % Magnesium Level 1.7 mg/dL (1.8-2.4) L Current Medications: Meds: Current Medications Medications (Trade) Dose Ordered Sig/Vikram Route PRN Reason Start Time Stop Time Status Last Admin Dose Admin Dextrose/Sodium Chloride 1,000 ml @ 75 mls/hr [id number] IV 10/22/19 05:45 10/22/19 16:58 DC 10/22/19 05:45 Vancomycin HCl (Vanco Per Pharmacy) 1 each PRN DAILY PRN MC SEE COMMENTS 10/22/19 13:30 10/22/19 16:28 Methylprednisolone Sodium Succinate (SOLU-Medrol 125MG VIAL) 125 mg 1X ONCE IV 10/22/19 13:30 10/22/19 13:36 DC 10/22/19 13:42 Albuterol/ Ipratropium (Duoneb) 3 ml RTQID NEB 10/22/19 16:00 10/22/19 18:56 DC 10/22/19 17:04 Montelukast Sodium (Singulair) 10 mg QHS PO 10/22/19 21:00 10/22/19 20:43 Furosemide (Lasix) 20 mg 1X ONCE IVP 10/22/19 13:45 10/22/19 13:46 DC 10/22/19 13:42 Levofloxacin/ Dextrose 100 ml @ 100 mls/hr 1X ONCE IV 10/22/19 15:00 10/22/19 15:59 DC 10/22/19 16:35 Methylprednisolone Sodium Succinate (SOLU-Medrol 40MG VIAL) 40 mg Q8HRS IV 10/22/19 22:00 10/22/19 20:43 Methylprednisolone Sodium Succinate (SOLU-Medrol 125MG VIAL) 125 mg 1X ONCE IV 10/22/19 14:00 10/22/19 14:01 DC 10/22/19 14:00 Piperacillin Sod/ Tazobactam Sod 2.25 gm/Sodium Chloride 50 ml @ 100 mls/hr Q6H IV 10/22/19 14:00 10/22/19 20:44 Vancomycin HCl 1 gm/Sodium Chloride 250 ml @ 250 mls/hr 1X ONCE IV 10/22/19 14:30 10/22/19 15:29 DC 10/22/19 16:34 Lactobacillus Rhamnosus (Culturelle) 1 cap BID PO 10/22/19 21:00 10/22/19 20:43 Diltiazem HCl (Cardizem) 30 mg Q6HRS PO 10/22/19 18:30 10/22/19 18:41 I have reviewed the current psychotropics carefully including drug interactions. Risk benefit ratio favors no change other than as noted in my dictated progress note. Diagnosis: Problems: (1) Anxiety disorder (2) Major depressive disorder, recurrent episode (3) Dementia, vascular, with delusions (4) Dementia, vascular, with depression (5) Dementia in Alzheimer's disease with delusions (6) Dementia in Alzheimer's disease with depression (7) Impulse control disorder LENCHO LYNN MD Oct 22, 2019 21:37
[2019-10-23] VITALS (12 sets, daily range): BP systolic 98–149; BP diastolic 53–79
[2019-10-23] MEDS ORDERED: dilTIAZem HCL 30 MG TABLET PO SCH
[2019-10-23] MEDS: PIPERACILLIN/TAZOBACTAM 2.25 GM in IV NORMAL SALINE 50ML 50 ML IV SCH ×4 (02:00→19:48)
[2019-10-23] MEDS: methylPREDNISolone SOD SUCC PF 40 MG/ML VIAL. IV SCH ×3 (05:46→21:03)
[2019-10-23] MEDS: dilTIAZem HCL 30 MG TABLET PO SCH ×3 (05:47→18:20)
[2019-10-23 06:38] LABS: HEMATOCRIT 42.8 % (36.0-47.0); HEMOGLOBIN 13.8 g/dL (12.0-15.5); RED BLOOD COUNT 4.39 x10^6/uL (3.50-5.40); RED CELL DISTRIBUTION WIDTH 13.3 % (11.5-14.5); WHITE BLOOD COUNT 5.1 x10^3/uL (4.0-11.0)
[2019-10-23 06:55] LABS: ALBUMIN 2.8 g/dL (3.4-5.0); ALBUMIN/GLOBULIN RATIO 0.8 (1.0-1.7); CALCIUM 9.4 mg/dL (8.5-10.1); CREATININE 0.4 mg/dL (0.6-1.0); GFR 153.6; POTASSIUM 4.5 mmol/L (3.5-5.1); TOTAL BILIRUBIN 0.4 mg/dL (0.2-1.0); TOTAL PROTEIN 6.2 g/dL (6.4-8.2)
[2019-10-23] MEDS: VANCOMYCIN PER PHARMACY MC PRN (11:30)
[2019-10-23] MEDS: LACTOBACILLUS RHAMNOSUS GG 1 CAPSULE. PO SCH ×2 (13:12→19:48)
[2019-10-23] MEDS ORDERED: ACETAMINOPHEN 500 MG TABLET PO PRN (16:15)
[2019-10-23] MEDS ORDERED: VANCOMYCIN 750 MG in IV NORMAL SALINE 250ML 250 ML IV SCH (17:00)
[2019-10-23] MEDS: NICOTINE 21MG PATCH. TD SCH (17:12)
[2019-10-23] MEDS: MONTELUKAST 10 MG TABLET. PO SCH (19:48)
--- NOTE | 2019-10-23 21:13 | PDOC ---
Exam Note: Alejandro Note: Please also refer to the separate dictated note~for this date of service dictated separately.~Patient seen individually. Discussed the patient with Nursing staff reviewed the chart.~Reviewed interim history and current functioning. Reviewed vital signs,~Labs/ Radiology~and current medications noted below. Continue current treatment with the changes noted in the dictated addendum note Assessment: Vital Signs/I&O: Vital Signs Date Time Temp Pulse Resp B/P (MAP) Pulse Ox O2 Delivery O2 Flow Rate FiO2 10/23/19 20:00 Nasal Cannula 4.0 10/23/19 19:39 98.4 96 23 130/60 (83) 92 I & O 10/22/19 10/22/19 10/23/19 15:00 23:00 07:00 Intake Total 875 ml 930 ml 450 ml Output Total 400 ml Balance 475 ml 930 ml 450 ml Labs: Laboratory Tests Test 10/23/19 05:40 White Blood Count 5.1 x10^3/uL (4.0-11.0) Red Blood Count 4.39 x10^6/uL (3.50-5.40) Hemoglobin 13.8 g/dL (12.0-15.5) Hematocrit 42.8 % (36.0-47.0) Mean Corpuscular Volume 98 fL (79-100) Mean Corpuscular Hemoglobin 32 pg (25-35) Mean Corpuscular Hemoglobin Concent 32 g/dL (31-37) Red Cell Distribution Width 13.3 % (11.5-14.5) Platelet Count 185 x10^3/uL (140-400) Sodium Level 144 mmol/L (136-145) Potassium Level 4.5 mmol/L (3.5-5.1) Chloride Level 102 mmol/L (98-107) Carbon Dioxide Level 44 mmol/L (21-32) H Anion Gap -2 (6-14) L Blood Urea Nitrogen 30 mg/dL (7-20) H Creatinine 0.4 mg/dL (0.6-1.0) L Estimated GFR (Cockcroft-Gault) 153.6 BUN/Creatinine Ratio 75 (6-20) H Glucose Level 129 mg/dL (70-99) H Calcium Level 9.4 mg/dL (8.5-10.1) Total Bilirubin 0.4 mg/dL (0.2-1.0) Aspartate Amino Transferase (AST) 20 U/L (15-37) Alanine Aminotransferase (ALT) 41 U/L (14-59) Alkaline Phosphatase 71 U/L (46-116) Total Protein 6.2 g/dL (6.4-8.2) L Albumin 2.8 g/dL (3.4-5.0) L Albumin/Globulin Ratio 0.8 (1.0-1.7) L Current Medications: Meds: Current Medications Medications (Trade) Dose Ordered Sig/Vikram Route PRN Reason Start Time Stop Time Status Last Admin Dose Admin Methylprednisolone Sodium Succinate (SOLU-Medrol 40MG VIAL) 40 mg Q8HRS IV 10/22/19 22:00 10/23/19 21:03 Levofloxacin/ Dextrose 50 ml @ 50 mls/hr Q24H IV 10/23/19 15:00 10/23/19 16:08 Vancomycin HCl 750 mg/Sodium Chloride 250 ml @ 250 mls/hr Q24H IV 10/23/19 17:00 10/23/19 17:16 Acetaminophen (Tylenol) 1,000 mg PRN Q6HRS PRN PO PAIN / TEMP 10/23/19 16:15 10/23/19 18:19 Nicotine (Nicoderm Cq 21mg) 1 patch DAILY TD 10/23/19 17:00 10/23/19 17:12 Olanzapine (ZyPREXA ZYDIS) 2.5 mg PRN Q2HRS PRN PO ANXIETY / AGITATION 10/23/19 16:15 10/23/19 19:48 I have reviewed the current psychotropics carefully including drug interactions. Risk benefit ratio favors no change other than as noted in my dictated progress note. Diagnosis: Problems: (1) Anxiety disorder (2) Major depressive disorder, recurrent episode (3) Dementia, vascular, with delusions (4) Dementia, vascular, with depression (5) Dementia in Alzheimer's disease with delusions (6) Dementia in Alzheimer's disease with depression (7) Impulse control disorder LENCHO LYNN MD Oct 23, 2019 21:13
--- NOTE | 2019-10-24 00:36 | PN ---
DATE: 10/23/2019 SUBJECTIVE: The patient is continuing to be extremely paranoid, restless, agitated; however, she continued also to be with marked chest tightness and wheezing. PHYSICAL EXAMINATION: GENERAL: When I examined her this afternoon, she was sitting on the edge of the bed, cachectic and pale. No jaundice, cyanosis or thyromegaly. No jugular venous distension. No lower limb edema. VITAL SIGNS: Her heart rate was 92, blood pressure was 125/53, temperature was 98.4, respiratory rate was 18 and oxygen saturation was 92% on 4 liters of oxygen. HEAD, EYES, EARS, NOSE AND THROAT: Showed normocephalic, atraumatic. NECK: Supple. HEART: Showed normal first and second heart sounds. No gallop, rub or murmur. CHEST: Central trachea, equally reduced expansion, reduced air entry, vesicular sounds with scattered rhonchi bilaterally. I could not really appreciate any crepitation. ABDOMEN: Scaphoid, soft, nontender. NEUROLOGIC: She is awake and alert, but extremely paranoid. All her cranial nerves are intact. She moves extremities without difficulty, though she has marked muscle wasting and weakness. Her intake over the last 24 hours was 1955, output was 400. LABORATORY DATA: Her white cell count was 5100, hemoglobin 13.8, hematocrit 43, MCV 98 and platelet count of 185,000. Her serum sodium was 144, potassium 4.5, chloride 102, bicarbonate 44, anion gap of -2. BUN is 30, creatinine 0.4. Estimated GFR was 153 mL per minute. Her glucose was 129, calcium was 9.4, magnesium was 1.7. Total bilirubin, AST, ALT and alkaline phosphatase were normal. Total protein was 6.2, albumin was 2.8. ASSESSMENT: 1. Acute on chronic hypoxic respiratory failure. 2. Healthcare-associated pneumonia versus pulmonary edema. 3. Chronic obstructive pulmonary disease exacerbation. 4. Hyperlipidemia. 5. Hypertension. 6. Rheumatoid arthritis. PLAN: To continue with IV antibiotics, continue with IV steroids. I would repeat her labs, chest x-ray and blood gases. LESTER FELICIANO MD DR: DIXIE/jun JOB#: [id number] / [id number]
[2019-10-24] MEDS: PIPERACILLIN/TAZOBACTAM 2.25 GM in IV NORMAL SALINE 50ML 50 ML IV SCH ×4 (01:34→19:45)
[2019-10-24 03:38] VITALS: BP 141/76
[2019-10-24 05:30] VITALS: BP 148/84
[2019-10-24] MEDS: methylPREDNISolone SOD SUCC PF 40 MG/ML VIAL. IV SCH ×2 (05:55→18:00)
[2019-10-24 06:08] LABS: HEMATOCRIT 44.3 % (36.0-47.0); HEMOGLOBIN 14.2 g/dL (12.0-15.5); RED BLOOD COUNT 4.54 x10^6/uL (3.50-5.40); RED CELL DISTRIBUTION WIDTH 13.8 % (11.5-14.5)
[2019-10-24 06:14] LABS: CALCIUM 9.5 mg/dL (8.5-10.1); CREATININE 0.5 mg/dL (0.6-1.0); GFR 118.7; POTASSIUM 3.8 mmol/L (3.5-5.1)
[2019-10-24] MEDS: NICOTINE 21MG PATCH. TD SCH (07:42)
[2019-10-24] MEDS: VANCOMYCIN PER PHARMACY MC PRN (07:49)
--- NOTE | 2019-10-24 08:50 | RAD ---
PORTABLE CHEST 1V Clinical Indication: Pneumonia Comparison: AP chest, 2 days ago. Findings: Atherosclerotic thoracic aorta. Cardiac size normal. Stable calcified left hilar lymph node. Stable calcified granuloma left lung base. Lungs are hyperexpanded. Stable blunting of the costophrenic angle is. There is emphysema. Interstitial marking prominence is improved suggesting improved pulmonary edema. Small reticular opacity in the peripheral right midlung. No pneumothorax. IMPRESSION: 1. Improved interstitial marking prominence suggesting improved pulmonary edema. 2. Small reticular opacity in the peripheral right midlung may be atelectasis or infiltrate. 3. COPD. Electronically signed by: Janes Buckley MD (10/24/2019 8:47 AM) [id number]
[2019-10-24] MEDS: LACTOBACILLUS RHAMNOSUS GG 1 CAPSULE. PO SCH ×2 (08:51→20:15)
[2019-10-24 11:12] VITALS: BP 116/97
[2019-10-24] MEDS ORDERED: HYDROcodone/APAP 5/325MG 1 TAB TABLET PO PRN (12:00)
[2019-10-24] MEDS ORDERED: BUDESONIDE 0.5 MG/2 ML NEBU IH PRN (12:00)
[2019-10-24] MEDS ORDERED: NON FORMULARY ITEM (Menthol (Biofreeze) 118 ML) TP PRN (12:00)
[2019-10-24] MEDS ORDERED: traZODone 50 MG TABLET. PO PRN (12:00)
[2019-10-24] MEDS ORDERED: SIMETHICONE 80 MG TAB.CHEW PO PRN (12:00)
[2019-10-24] MEDS ORDERED: METHYL SALICYLATE/MENTHOL TOPICAL OINTMENT 57GM TUBE. TP PRN ×2 (12:30→12:45)
[2019-10-24] MEDS ORDERED: ALBUTEROL SULFATE 2.5 MG/3 ML NEBU. NEB PRN (12:30)
[2019-10-24] MEDS ORDERED: MAGNESIUM HYDROXIDE 2,400 MG/30 ML ORAL.SUSP. PO PRN (12:30)
[2019-10-24] MEDS: ALPRAZolam 0.5 MG TABLET PO PRN (14:26)
[2019-10-24] MEDS: MAGNESIUM OXIDE 400 MG TABLET PO SCH (14:27)
[2019-10-24] MEDS ORDERED: hydrOXYzine PAMOATE 25 MG CAPSULE PO PRN (14:30)
[2019-10-24 15:00] VITALS: BP 126/65
[2019-10-24 19:22] VITALS: BP 143/70
--- NOTE | 2019-10-24 20:13 | PN ---
DATE: SUBJECTIVE: The patient is sitting comfortably in her recliner, in no apparent distress, eating her lunch comfortably. Denied any complaint. Continued to obviously be paranoid, uncooperative at times, but generally seems to be better. Her oxygen is much better now at 96% on 3 liters of oxygen. Chest x-ray showed improvement. PHYSICAL EXAMINATION: GENERAL: When I examined her, she looked well and was clearly in no apparent respiratory distress. No pallor, jaundice, cyanosis or thyromegaly. No jugular venous distention. No lower limb edema. VITAL SIGNS: Her heart rate was 104, blood pressure 116/97, temperature 97.9, respiratory rate 21 and oxygen saturation was 96% on 3 liters of oxygen by nasal cannula. HEAD, EYES, EARS, NOSE AND THROAT: Showed normocephalic, atraumatic. NECK: Supple. HEART: Normal first and second heart sounds. No gallop or murmur. CHEST: Shows central trachea, equally reduced expansion, reduced air entry, vesicular sounds, very few scattered rhonchi, much improved compared to yesterday. ABDOMEN: Scaphoid, soft, nontender. NEUROLOGIC: She is awake, alert, oriented. All cranial nerves intact. She moves extremities without difficulty. Her intake was 1955, output was 400. LABORATORY DATA: Showed a white cell count 7000, hemoglobin 14, hematocrit 44, MCV 98 and platelet count of 219,000. Her chemistry showed serum sodium 143, potassium 3.8, chloride 98, bicarbonate 42, anion gap of 3, BUN 30, creatinine 0.5, estimated GFR was 118 mL per minute. Her glucose 131, calcium was 9.5. ASSESSMENT: 1. Acute on chronic hypoxic hypercapnic respiratory failure. 2. Healthcare-associated pneumonia versus pulmonary edema. 3. Chronic obstructive pulmonary disease exacerbation. 4. Hyperlipidemia. 5. Hypertension. 6. Rheumatoid arthritis. PLAN: My plan is to cut down her steroids to twice a day. I will discontinue her vancomycin and continue with IV levofloxacin as well as piperacillin and we will consult our social economist for disposition tomorrow. LESTER FELICIANO MD DR: DIXIE/jun JOB#: [id number] / [id number]
[2019-10-24] MEDS: MONTELUKAST 10 MG TABLET. PO SCH (20:15)
[2019-10-24] MEDS ORDERED: MIRTAZAPINE 15 MG TABLET PO SCH (21:00)
[2019-10-24] MEDS: BUDESONIDE 0.5 MG/2 ML NEBU IH SCH (21:00)
--- NOTE | 2019-10-24 21:35 | PDOC ---
Exam Note: Alejandro Note: Please also refer to the separate dictated note~for this date of service dictated separately.~Patient seen individually. Discussed the patient with Nursing staff reviewed the chart.~Reviewed interim history and current functioning. Reviewed vital signs,~Labs/ Radiology~and current medications noted below. Continue current treatment with the changes noted in the dictated addendum note Assessment: Vital Signs/I&O: Vital Signs Date Time Temp Pulse Resp B/P (MAP) Pulse Ox O2 Delivery O2 Flow Rate FiO2 10/24/19 20:26 Nasal Cannula 3.0 10/24/19 19:22 97.7 99 18 143/70 (94) 88 I & O 10/23/19 10/23/19 10/24/19 14:59 22:59 06:59 Intake Total 910 ml 900 ml 250 ml Balance 910 ml 900 ml 250 ml Labs: Laboratory Tests Test 10/24/19 05:38 White Blood Count 7.0 x10^3/uL (4.0-11.0) Red Blood Count 4.54 x10^6/uL (3.50-5.40) Hemoglobin 14.2 g/dL (12.0-15.5) Hematocrit 44.3 % (36.0-47.0) Mean Corpuscular Volume 98 fL (79-100) Mean Corpuscular Hemoglobin 31 pg (25-35) Mean Corpuscular Hemoglobin Concent 32 g/dL (31-37) Red Cell Distribution Width 13.8 % (11.5-14.5) Platelet Count 219 x10^3/uL (140-400) Sodium Level 143 mmol/L (136-145) Potassium Level 3.8 mmol/L (3.5-5.1) Chloride Level 98 mmol/L (98-107) Carbon Dioxide Level 42 mmol/L (21-32) H Anion Gap 3 (6-14) L Blood Urea Nitrogen 30 mg/dL (7-20) H Creatinine 0.5 mg/dL (0.6-1.0) L Estimated GFR (Cockcroft-Gault) 118.7 Glucose Level 131 mg/dL (70-99) H Calcium Level 9.5 mg/dL (8.5-10.1) Current Medications: Meds: Current Medications Medications (Trade) Dose Ordered Sig/Vikram Route PRN Reason Start Time Stop Time Status Last Admin Dose Admin Diltiazem HCl (Cardizem 24hr Cd) 120 mg DAILY PO 10/24/19 09:00 10/24/19 08:51 Hydroxyzine Pamoate (Vistaril) 25 mg PRN Q4HRS PRN PO ITCHING 10/24/19 14:30 10/24/19 20:15 Mirtazapine (Remeron) 15 mg HS PO 10/24/19 21:00 10/24/19 20:15 Alprazolam (Xanax) 1 mg PRN BID PRN PO ANXIETY / AGITATION 10/24/19 13:15 10/24/19 14:26 Magnesium Oxide (Magnesium Oxide) 400 mg DAILY PO 10/24/19 13:00 10/24/19 14:27 Methylprednisolone Sodium Succinate (SOLU-Medrol 40MG VIAL) 40 mg Q12H IV 10/24/19 18:00 10/24/19 18:00 I have reviewed the current psychotropics carefully including drug interactions. Risk benefit ratio favors no change other than as noted in my dictated progress note. Diagnosis: Problems: (1) Anxiety disorder (2) Major depressive disorder, recurrent episode (3) Dementia, vascular, with delusions (4) Dementia, vascular, with depression (5) Dementia in Alzheimer's disease with delusions (6) Dementia in Alzheimer's disease with depression (7) Impulse control disorder LENCHO LYNN MD Oct 24, 2019 21:34
[2019-10-24 23:30] VITALS: BP 128/65
[2019-10-25] MEDS: PIPERACILLIN/TAZOBACTAM 2.25 GM in IV NORMAL SALINE 50ML 50 ML IV SCH ×2 (01:23→08:00)
--- NOTE | 2019-10-25 03:50 | PN ---
DATE: 10/23/2019 PSYCHIATRIC PROGRESS NOTE This late entry 10/23/2019 covers the elements not covered in my initial note. SUBJECTIVE: I met with the patient in the evening of 10/23/2019 in ICU bed 3 for a psychiatric consultation/followup requested by Dr. Jordan after the patient was transferred from [facility] to the ICU for significant drop in her O2 sats despite being on 3 liters oxygen. Since she has been in the ICU, all her psychotropics have been discontinued. She remains quite confused with intermittent mood lability, anxiety, paranoia. Nursing staff have been using Zyprexa p.r.n. REVIEW OF SYSTEMS: Positive for tiredness. No CV, , pulmonary, eye system symptoms on review. She is short of breath, however. MENTAL STATUS EXAMINATION: The patient is oriented to herself, but thought she was at a hotel, somewhat confused, delirious. Speech is coherent, pleasant, smiling at times. Attention span short. Language function intact. She remains paranoid. No active suicidal or homicidal ideation. IMPRESSION: Major depressive disorder with psychotic features; anxiety disorder, unspecified; delirium, unspecified versus mild cognitive impairment. Rest unchanged. RECOMMENDATION: From a psychiatric standpoint, I would agree to keep her off all psychotropics, so she is medically stabilized, but the Zyprexa can be used p.r.n. to assist with her psychosis, agitation. We will make further determination in her psychotropics when she is medically stable. LENCHO LYNN MD DR: MELVIN/jun JOB#: [id number] / [id number]
[2019-10-25] MEDS: methylPREDNISolone SOD SUCC PF 40 MG/ML VIAL. IV SCH (05:15)
[2019-10-25 07:00] VITALS: BP 169/79
[2019-10-25] MEDS: NICOTINE 21MG PATCH. TD SCH (08:52)
[2019-10-25] MEDS: LACTOBACILLUS RHAMNOSUS GG 1 CAPSULE. PO SCH (08:53)
[2019-10-25] MEDS: MAGNESIUM OXIDE 400 MG TABLET PO SCH (08:53)
[2019-10-25] MEDS ORDERED: MULTIVITAMIN with MINERAL TABLET. PO SCH (09:00)
[2019-10-25] MEDS ORDERED: METOPROLOL SUCC 24HR ER 25 MG TAB.ER.24H. PO SCH (09:00)
[2019-10-25] MEDS ORDERED: ARIPiprazole 5 MG TABLET PO SCH (09:00)
[2019-10-25] MEDS ORDERED: CYANOCOBALAMIN (VITAMIN B-12) 1,000 MCG TABLET. PO SCH (09:00)
[2019-10-25] MEDS ORDERED: VITAMIN E. 400 UNIT CAPSULE. PO SCH (09:00)
[2019-10-25] MEDS: BUDESONIDE 0.5 MG/2 ML NEBU IH SCH (09:00)
[2019-10-25] MEDS ORDERED: amLODIPine BESYLATE 5 MG TABLET PO SCH (09:00)
[2019-10-25] MEDS ORDERED: FUROSEMIDE 20 MG TABLET PO SCH (09:00)
[2019-10-25] MEDS ORDERED: NON FORMULARY ITEM (Umeclidinium Brm/Vilanterol Tr (Anoro Ellipta 62.5-25 Mcg Inh) 1 PUFF) INH SCH (09:00)
[2019-10-25] MEDS ORDERED: SERTRALINE 100 MG TABLET. PO SCH (09:00)
[2019-10-25] MEDS ORDERED: OMEGA-3 FATTY ACIDS/FISH OIL 1,000 MG CAPSULE. PO SCH (09:00)
[2019-10-25] MEDS ORDERED: AMOXICILLIN/K CLAV 875/125MG TABLET. PO SCH (10:30)
--- NOTE | 2019-10-25 10:54 | DS ---
DATE OF DISCHARGE: HOSPITAL COURSE: The patient is an 79-year-old female patient who was transferred from [facility] on account of being very lethargic, hypoxic with an oxygen saturation of 80% despite being on 4 liters of oxygen by nasal cannula. Her ABG showed her pCO2 was 80, bicarbonate was 38 and therefore, a decision was made to transfer her to the ICU where she was started on BiPAP machine. We did a chest x-ray showed that she has emphysematous changes as well as questionable bilateral infiltrates versus pulmonary edema. We did treat her with IV antibiotic as well as IV Lasix and she did actually very well. Decision was made to discharge her back to [facility] to continue on a tapering course of steroids and to continue with oral antibiotic and nebulized treatment. OBJECTIVE: GENERAL: When I saw her this morning, she looked well and was clearly in no apparent respiratory distress. No pallor, jaundice, cyanosis or thyromegaly. No jugular venous distension. No lower limb edema. VITAL SIGNS: Her heart rate was 78, blood pressure was 169/79, temperature was 97.8, respiratory rate was 18 and oxygen saturation was 96% on 3 liters of oxygen by nasal cannula. HEAD, EYES, EARS, NOSE AND THROAT: Showed normocephalic, atraumatic. NECK: Supple. CARDIAC: Normal first and second heart sounds normal. CHEST: Shows central trachea, equally reduced expansion, reduced air entry, vesicular breath sounds, very few scattered rhonchi. No crepitation. ABDOMEN: Scaphoid, soft, nontender. NEUROLOGIC: She is demented, but without any obvious lateralizing sign. LABORATORY DATA: Her lab work as of yesterday showed a white cell count of 7000, hemoglobin 14, hematocrit 44, MCV 98 and platelet count 219,000. Her chemistry showed a serum sodium 143, potassium 3.8, chloride 98, bicarbonate 22, anion gap of 3, BUN 30, creatinine 0.5, estimated GFR was 118 mL per minute. Her glucose was 131, calcium was 9.1. DISCHARGE MEDICATIONS: The patient was discharged back to [facility] in [place] to continue on amoxicillin 875 mg twice a day for 7 more days, vitamin E 400 units once a day, multivitamin with calcium once a day, sertraline 100 mg once a day, fish oil 1000 mg once a day, furosemide 20 mg daily, cyanocobalamin 1000 mcg p.o. daily, aripiprazole 2.5 mg daily, budesonide for Pulmicort 0.5 mg by nebulizer twice a day, hydroxyzine pamoate 25 mg twice a day every 4 hours, alprazolam 1 mg twice a day as needed, magnesium oxide 400 mg daily, analgesic balm 4 times a day as needed, magnesium oxide 30 mL p.o. daily at bedtime, albuterol sulfate 2.5 mg every 4 hours, simethicone 80 mg 4 times a day, hydrocodone/APAP 5/325 one tablet every 6 hours, diltiazem 120 mg daily, nicotine 21 mg patch topically daily, olanzapine 2.5 mg every 2 hours as needed, acetaminophen 1000 mg every 6 hours, lactobacillus rhamnosus 1 capsule twice a day, montelukast 10 mg at bedtime. FINAL DISCHARGE DIAGNOSES: 1. Acute on chronic hypoxic hypercapnic respiratory failure. 2. Healthcare-associated pneumonia over severe pulmonary edema. 3. Chronic obstructive pulmonary disease exacerbation. 4. Hypertension. 5. Hyperlipidemia. 6. Rheumatoid arthritis. LESTER FELICIANO MD DR: DIXIE/jun JOB#: [id number] / [id number]
[2019-10-25 11:18] VITALS: BP 120/49
[2019-10-25] MEDS: ALPRAZolam 0.5 MG TABLET PO PRN (15:24)
--- NOTE | 2019-10-25 17:54 | PN ---
DATE: 10/24/2019 PSYCHIATRIC PROGRESS NOTE This late entry 10/24/2019 covers the elements not covered in my initial note. SUBJECTIVE: I met with the patient evening of 10/24/2019. Per nursing report, the patient has been quite confused, intermittently psychotic, but medically she is recovering with respect to her pulmonary status. The daughter does not want her to return to [facility] per nursing staff and plan is to have her return to [facility]. The patient's Remeron and Abilify had been discontinued after she was admitted to the ICU from the [facility]. She remains psychotic. Trazodone remains p.r.n. and if the daughter is agreeable, we will restart the Abilify 2.5 mg twice a day. REVIEW OF SYSTEMS: Ambulation impaired. Complains of tiredness. No CV, , pulmonary, eye system symptoms on review. MENTAL STATUS EXAM: Oriented to herself, unaware of where she was, still felt she was in a hotel. Insight, judgment, recent and remote memory, attention, concentration, fund of knowledge poor, consistent with her diagnoses. IMPRESSION: History of major depressive disorder with psychotic features, delirium, unspecified; history of major neurocognitive disorder, possibly early multifactorial with delusion, depression, but until recently in the past, she has been cognitively reasonably intact. LABORATORY DATA: Reviewed. PLAN: Restart Abilify, daughter approves it, 0.25 mg twice a day. Maintain trazodone p.r.n., Zyprexa p.r.n. Rest unchanged for now. LENCHO LYNN MD DR: MELVIN/jun JOB#: [id number] / [id number]
== END 2019-10-25 14:31 | DRG 177 ==
LOC: ICU 05:36
PROVIDERS: ADMIT Internal Medicine; ATTEND Internal Medicine
PROC: 5A09357 Assistance with Respiratory Ventilation, Less than 24 Consecutive Hours, Continuous Positive Airway Pressure (ICD-10-PCS; principal; 2019-10-22)
DX: J15.6 Pneumonia due to other Gram-negative bacteria (principal); J96.21 Acute and chronic respiratory failure with hypoxia; J96.22 Acute and chronic respiratory failure with hypercapnia; F33.9 Major depressive disorder, recurrent, unspecified; E87.1 Hypo-osmolality and hyponatremia; F33.3 Major depressive disorder, recurrent, severe with psychotic symptoms; J81.1 Chronic pulmonary edema; E78.5 Hyperlipidemia, unspecified; F01.50 Vascular dementia, unspecified severity, without behavioral disturbance, psychotic disturbance, mood disturbance, and anxiety; F02.80 Dementia in other diseases classified elsewhere, unspecified severity, without behavioral disturbance, psychotic disturbance, mood disturbance, and anxiety; F17.200 Nicotine dependence, unspecified, uncomplicated; F41.9 Anxiety disorder, unspecified; F63.9 Impulse disorder, unspecified; G30.9 Alzheimer's disease, unspecified; I10 Essential (primary) hypertension; J43.9 Emphysema, unspecified; M06.9 Rheumatoid arthritis, unspecified; Y95 Nosocomial condition; Z85.51 Personal history of malignant neoplasm of bladder; Z88.8 Allergy status to other drugs, medicaments and biological substances
CPT/HCPCS: 36415; 36600; 71045; 80048; 80053; 82803; 83735; 83880; 84145; 84484; 85027; 93005; 94640; J1956; J2543; J2920; J2930; J3370; J7050; J7626; Q0177